=== PATIENT | male | born 1970 | race Caucasian/White ===

== ENCOUNTER → 2016-09-04 | Outpatient (CLI) | payer BC ==
[~2016-09-04] MED LIST: CEFP500T4 PO; CPR500T PO; CYCL10TA9 PO; HYDR-3583 PO; HYDR1TAB PO; NAPR-243 PO; OXYC-12 PO; PHEN200T27 PO; PRED20TA PO; TRIA16.5 NS
--- NOTE | 2016-09-04 14:18 | Diagnostic Imaging Report ---
EXAM: Right ribs at 8:51 a.m. INDICATION: Fell, hip pain. Three views were obtained. COMPARISON: There are no prior studies available for comparison. FINDINGS: There is no evidence for a displaced rib fracture. No other acute bony abnormality is noted. There is no sign of an injury to the underlying right lung. Specifically, there is no evidence for a pneumothorax. IMPRESSION: There is no evidence for an acute bony abnormality. Dictated by: Dictated on workstation # [id number]
== END ==
LOC: RAD 08:22
PROVIDERS: ATTEND Nurse Practitioner Family
DX: R07.81 Pleurodynia (principal)
CPT/HCPCS: 71100

== ENCOUNTER → 2017-04-09 | Outpatient (CLI) | payer BC ==
[~2017-04-09] VITALS: Ht 182.9 cm; Wt 95.3 kg
[~2017-04-09] MED LIST changes: +CATHETER FLUSH 10 ML SYR IV PRN
[2017-04-09 08:11] VITALS: BP 128/85
--- NOTE | 2017-04-09 13:18 | STRESS TEST ---
DATE OF SERVICE: 04/09/2017 [facility]EXISC[facility] MYOVIEW STRESS TEST REPORT SUMMARY: The patient was injected with 11 mCi of technetium-99 Myoview and the resting images were obtained with peak stress level, a 30.7 mCi of technetium-99 Myoview were injected and the stress images were obtained. The resting and stressed images were reviewed and compared in the short axis, horizontal long axis, and vertical long axis views. Review of the images showed mild decrease uptake at the basal to mid inferior wall with diaphragmatic attenuation with no significant ischemia or infarction. SSS is 2, SDS 2, TID value of 1.1. On the gated images, the left ventricle appeared to be normal size with normal contractility, calculated ejection fraction 66%. CONCLUSION: 1. Diaphragmatic attenuation with no significant ischemia or infarction. 2. Normal left ventricular size with normal contractility. Calculated ejection fraction 66%. Job ID: [id number] DocumentID: [id number] Dictated Date: 04/09/2017 10:45:06 [employer] Equipment Operator Date: 04/09/2017 12:25:30 Dictated By: ONIEL LOPEZ MD
== END ==
LOC: CARD 06:41
PROVIDERS: ATTEND Internal Medicine
DX: R07.9 Chest pain, unspecified (principal)
CPT/HCPCS: 78452; 93017

== ENCOUNTER 2018-03-22 09:46 | Day surgery (SDC) | payer BC ==
[2018-03-22] VITALS (8 sets, daily range): BP systolic 111–137; BP diastolic 75–103
[~2018-03-22] VITALS: Ht 182.9 cm; Wt 98.0 kg
[~2018-03-22 09:46] MED LIST changes: -CATHETER FLUSH 10 ML SYR IV PRN
--- OUTSIDE RECORDS SUMMARY | 2018-03-22 09:49 | XMS REPORT | CCD ---
Author Author Noemi Mercado Organization [facility] Address [address] [place] [address] Phone Care Team Providers Care Technical Writing Lead/Mgr Name Role Phone PP Unavailable CCM Unavailable Summary Purpose Interface Exchange Insurance Providers Payer name Policy type / Coverage type Covered green party ID Effective Begin Date Effective End Date Blue Cross Blue Shield [facility] Blue Cross/Blue Shield [id number] Unknown Unknown Family history Mother Diagnosis Age At Onset Alcoholism Unknown Father Diagnosis Age At Onset Arthritis Unknown Skin cancer Unknown Alcoholism Unknown Brother Diagnosis Age At Onset Alcoholism Unknown Sister Diagnosis Age At Onset Alcoholism Unknown Social History Social History Element Codes Description Effective Dates Marital status Unknown 11/01/2015 Employment Unknown Currently employed [employer] 11/01/[address]: 729448608 Never smoker 11/01/[address]: 224109396 Never drinks alcohol 11/01/2015 Allergies, Adverse Reactions, Alerts Substance Reaction Codes Entered Date Inactivated Date Status * NO KNOWN DRUG ALLERGIES Unknown 11/01/2015 No Inactive Date Active Past Medical History Illness Codes Condition Status Onset Date Resolved Date Encounter for general adult medical examination with abnormal findings ICD-9: V70.0 ICD-10: Z00.01 Active 03/11/2018 Unknown Generalized anxiety disorder ICD-9: 300.02 ICD-10: F41.1 Active 01/07/2017 Unknown Low back pain ICD-9: 724.2 ICD-10: M54.5 Active 11/11/2015 Unknown Other chest pain ICD-9 : 786.59 ICD-10: R07.89 Active 09/03/2016 Unknown Pleurodynia ICD-9: 786.50 ICD-10: R07.81 Active 09/03/2016 Unknown Other intervertebral disc displacement, 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 Active 11/11/2015 Unknown Localized enlarged lymph nodes ICD-9: 785.6 ICD-10: R59.0 Active 10/31/2015 Unknown Other insomnia ICD-9: 327.09 ICD-10: G47.09 Active 10/31/2015 Unknown Other muscle spasm ICD -9: 728.85 ICD-10: M62.838 Active 10/31/2015 Unknown Problems Condition Codes Effective Dates Condition Status Encounter for general adult medical examination with abnormal findings ICD-9: V70.0 ICD-10: Z00.01 03/11/2018 Active Generalized anxiety disorder ICD-9: 300.02 ICD-10: F41.1 01/07/2017 Active Low back pain ICD-9: 724.2 ICD-10: M54.5 11/11/2015 Active Other chest pain ICD-9 : 786.59 ICD-10: R07.89 09/03/2016 Active Pleurodynia ICD-9: 786.50 ICD-10: R07.81 09/03/2016 Active Other intervertebral disc displacement, 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 11/11/2015 Active Localized enlarged lymph nodes ICD-9: 785.6 ICD-10: R59.0 10/31/2015 Active Other insomnia ICD-9: 327.09 ICD-10: G47.09 10/31/2015 Active Other muscle spasm ICD -9: 728.85 ICD-10: M62.838 10/31/2015 Active Medications Medication Codes Instructions Start Date Stop Date Status Fill Instructions tramadol 50 mg tablet RxNorm: 260790 1-2 Tablet(s) PO Q6 PRN 01/2018 No Stop Date Active Lexapro 10 mg tablet RxNorm: 913446 1 Tablet(s) PO QPM 201603/10/2018 Inactive cyclobenzaprine 5 mg tablet RxNorm: 950724 1/2 - 1 Tablet(s) PO TID as needed muscle spasms 11/01/2015 11/05/2015 Inactive prednisone 20 mg tablet RxNorm: 301521 2 Tablet(s) PO daily 05/201511/05/2015 Inactive ibuprofen 800 mg tablet RxNorm: 134535 1 Tablet(s) PO as needed No Start Date Active oxycodone-acetaminophen 5 mg-325 mg tablet RxNorm: 9134866 Tablet(s) PO as needed No Start Date Active Cymbalta 20 mg capsule,delayed release RxNorm: 623587 1 Capsule(s) PO daily No Start Date 01/06/2017 Inactive oxycodone-acetaminophen 5 mg-325 mg tablet RxNorm: 2545461 Tablet(s) PO as needed No Start Date 11/01/2015 Inactive Medication Administered No Medication Administered data Immunizations No Immunization data Assessments Condition Codes Effective Dates Encounter for general adult medical examination with abnormal findings ICD-10: Z00.01 ICD-9: V70.0 03/11/2018 Generalized anxiety disorder ICD-10: F41.1 ICD-9: 300.02 01/07/2017 Low back pain ICD-10: M54.5 ICD-9: 724.2 01/07/2017 Pleurodynia ICD-10: R07.81 ICD-9: 786.50 09/03/2016 Other chest pain ICD-10: R07.89 ICD-9: 786.59 09/03/2016 Other intervertebral disc displacement, lumbar region ICD-10 : M51.26 ICD-9: 722.10 11/12/2015 Localized enlarged lymph nodes ICD-10: R59.0 ICD-9: 785.6 11/01/2015 Other muscle spasm ICD-10: M62.838 ICD-9: 728.85 11/01/2015 Other insomnia ICD-10: G47.09 ICD-9: 327.09 11/01/2015 Reason For Visit Reason For Visit Effective Dates Notes well man exam (40-65 years) 03/11/2018 insomnia 01/07/2017 bone fracture 09/03/2016 sore throat 11/12/2015 sore throat 11/01/2015 Results Observation Observation Code Item Item Code Result Date Lipid Ord30 CHOL 186 mg/dL 04/01/2016 Lipid Ord30 HDL 48.0 mg/dl 04/01/2016 Lipid Ord30 TRIG 93 mg/dL 04/01/2016 Lipid Ord30 LDL 119 mg/dL 04/01/2016 Lipid Ord30 C/HDL 3.9 Ratio 04/01/2016 Cbc With Differential Ord2 WBC 6.87 K/ul 04/01/2016 Cbc With Differential Ord2 RBC 5.47 M/ul 04/01/2016 Cbc With Differential Ord2 HGB 16.0 g/dl 04/01/2016 Cbc With Differential Ord2 Neut% 48.9 % 04/01/2016 Cbc With Differential Ord2 HCT 47.3 % 04/01/2016 Cbc With Differential Ord2 MCV 86.5 fl 04/01/2016 Cbc With Differential Ord2 Lymph% 37.6 % 04/01/2016 Cbc With Differential Ord2 MCH 29.3 pg 04/01/2016 Cbc With Differential Ord2 Hardeman% 10.3 % 04/01/2016 Cbc With Differential Ord2 MCHC 33.8 pg 04/01/2016 Cbc With Differential Ord2 Eos% 2.8 % 04/01/2016 Cbc With Differential Ord2 PLT 252 K/ul 04/01/2016 Cbc With Differential Ord2 Baso% 0.4 % 04/01/2016 Cbc With Differential Ord2 RDW 12.8 % 04/01/2016 Cbc With Differential Ord2 Neut ABS# 3.36 K/ul 04/01/2016 Cbc With Differential Ord2 Lymph ABS# 2.58 K/ul 04/01/2016 Cbc With Differential Ord2 Hardeman ABS# 0.7 K/ul 04/01/2016 Cbc With Differential Ord2 Eos ABS# 0.2 K/ul 04/01/2016 Cbc With Differential Ord2 Baso ABS# 0.0 K/ul 04/01/2016 Tsh Ord6 hTSH II 2.06 uIU/mL 04/01/2016 Comp Metabolic Bmm356 NA 140 mEq/L 04/01/2016 Comp Metabolic Xlc217 K 4.7 mEq/L 04/01/2016 Comp Metabolic Zxd359 CL 105 mEq/L 04/01/2016 Comp Metabolic Fry038 CO2 29.0 mEq/L 04/01/2016 Comp Metabolic Uux521 ANION GAP 11 04/01/2016 Comp Metabolic Hsf376 GLUCOSE 99 mg/dL 04/01/2016 Comp Metabolic Emg022 Creat 1.1 mg/dL 04/01/2016 Comp Metabolic Ixl558 eGFR 76 ml/min/1.73m2 04/01/2016 Comp Metabolic Gka000 BUN 17 mg/dL 04/01/2016 Comp Metabolic Kpu385 B/C Ratio 15.3 Ratio 04/01/2016 Comp Metabolic Vjs744 CALCIUM 9.5 mg/dL 04/01/2016 Comp Metabolic Knm807 ALK PHOS 73 U/L 04/01/2016 Comp Metabolic Swb545 AST(SGOT) 35 U/L 04/01/2016 Comp Metabolic Gjn298 ALT(SGPT) 74 U/L 04/01/2016 Comp Metabolic Vsa955 BILI T 0.6 mg/dL 04/01/2016 Comp Metabolic Nsu171 ALBUMIN 4.3 g/dL 04/01/2016 Comp Metabolic Hlt042 TPRO 6.5 g/dL 04/01/2016 Comp Metabolic Xuw632 GLOB 2.2 g/dL 04/01/2016 Comp Metabolic Akz663 A/G Ratio 1.9 Ratio 04/01/2016 Comp Metabolic Gmo222 Osmo 281 mOsmo 04/01/2016 Review of Systems System Result Effective Dates Constitutional No recent illness 2017 Constitutional No anorexia 03/11/2018 Constitutional No night sweats 2017 Constitutional No chills 03/11/2018 Constitutional No diaphoresis 03/11/2018 Constitutional No fatigue 03/11/2018 Constitutional No fever 03/11/2018 Eyes No blindness 03/11/2018 Ears/Nose/Throat/Neck No nasal allergies 03/11/2018 Ears/Nose/Throat/Neck No nasal discharge 03/11/2018 Cardiovascular chest pain/pressure 2017 Respiratory No chest congestion 2017 Respiratory No dyspnea 03/11/2018 Gastrointestinal No abdominal pain 2017 Gastrointestinal No constipation 2017 Gastrointestinal No diarrhea 03/11/2018 Genitourinary/Nephrology No dysuria 03/11 Musculoskeletal back pain 03/11/2018 Dermatologic No rash 03/11/2018 Neurologic No alteration of consciousness 03/11/2018 Neurologic No mental status change 2017 Constitutional No insomnia 03/11/2018 Constitutional No malaise 03/11/2018 Constitutional No weight loss 03/11/2018 Constitutional No weight gain 03/11/2018 Musculoskeletal shoulder pain 03/11/2018 Psychiatric No drug abuse 03/11/2018 Cardiovascular dyspnea 03/11/2018 Constitutional No recent illness 2016 Constitutional No fever 01/07/2017 Eyes No blindness 01/07/2017 Ears/Nose/Throat/Neck No nasal allergies 01/07/2017 Ears/Nose/Throat/Neck No nasal discharge 01/07/2017 Cardiovascular No chest pain/pressure 10/2016 Respiratory No chest congestion 2016 Respiratory No dyspnea 01/07/2017 Dermatologic No rash 01/07/2017 Neurologic No alteration of consciousness 01/07/2017 Neurologic No mental status change 2016 Musculoskeletal back pain 01/07/2017 Genitourinary/Nephrology No dysuria 01/07 Gastrointestinal No abdominal pain 2016 Gastrointestinal No constipation 2016 Gastrointestinal No diarrhea 01/07/2017 Constitutional No anorexia 01/07/2017 Constitutional No night sweats 2016 Constitutional No chills 01/07/2017 Constitutional No diaphoresis 01/07/2017 Constitutional No fatigue 01/07/2017 Psychiatric anxiety 01/07/2017 Psychiatric depression 01/07/2017 Constitutional No recent illness 2016 Constitutional No fever 09/03/2016 Eyes No eye erythema 09/03/2016 Ears/Nose/Throat/Neck No nasal allergies 09/03/2016 Ears/Nose/Throat/Neck No nasal discharge 09/03/2016 Cardiovascular No chest pain/pressure 08/2016 Respiratory No dyspnea 09/03/2016 Respiratory No chest congestion 2016 Musculoskeletal joint complaint 2016 Dermatologic No rash 09/03/2016 Neurologic No alteration of consciousness 09/03/2016 Neurologic No mental status change 2016 Constitutional No recent illness 2015 Constitutional No chills 11/12/2015 Constitutional No diaphoresis 11/12/2015 Constitutional fatigue 11/12/2015 Constitutional No fever 11/12/2015 Eyes No blindness 11/12/2015 Ears/Nose/Throat/Neck nasal allergies 04/2016 Ears/Nose/Throat/Neck nasal discharge 04/2016 Ears/Nose/Throat/Neck No otalgia 2015 Ears/Nose/Throat/Neck postnasal drip 04/2016 Ears/Nose/Throat/Neck No sinus congestion 11/12/2015 Ears/Nose/Throat/Neck No sore throat 04/2016 Cardiovascular No chest pain/pressure 04/2016 Cardiovascular No dyspnea 11/12/2015 Respiratory No chest congestion 2015 Respiratory No cough 11/12/2015 Respiratory No dyspnea 11/12/2015 Gastrointestinal No abdominal pain 2015 Gastrointestinal No constipation 2015 Gastrointestinal No diarrhea 11/12/2015 Gastrointestinal No nausea 11/12/2015 Gastrointestinal No vomiting 11/12/2015 Musculoskeletal back pain 11/12/2015 Dermatologic No rash 11/12/2015 Neurologic No alteration of consciousness 11/12/2015 Neurologic No mental status change 2015 Constitutional No insomnia 11/12/2015 Constitutional No recent illness 2015 Constitutional No chills 11/01/2015 Constitutional No diaphoresis 11/01/2015 Constitutional fatigue 11/01/2015 Constitutional No fever 11/01/2015 Constitutional insomnia 11/01/2015 Eyes No eye erythema 11/01/2015 Ears/Nose/Throat/Neck nasal allergies 05/2015 Ears/Nose/Throat/Neck nasal discharge 05/2015 Ears/Nose/Throat/Neck postnasal drip 05/2015 Ears/Nose/Throat/Neck No sinus congestion 11/01/2015 Ears/Nose/Throat/Neck No sore throat 05/2015 Ears/Nose/Throat/Neck No otalgia 2015 Cardiovascular No chest pain/pressure 05/2015 Cardiovascular No dyspnea 11/01/2015 Respiratory No chest congestion 2015 Respiratory No cough 11/01/2015 Respiratory No dyspnea 11/01/2015 Gastrointestinal No abdominal pain 2015 Gastrointestinal No constipation 2015 Gastrointestinal No diarrhea 11/01/2015 Gastrointestinal No vomiting 11/01/2015 Gastrointestinal No nausea 11/01/2015 Musculoskeletal back pain 11/01/2015 Dermatologic No rash 11/01/2015 Neurologic No alteration of consciousness 11/01/2015 Neurologic No mental status change 2015 Physical Exam Exam Name System Name Item Name Status Result Effective Dates Notes Full Exam - General 1994 Constitutional general appearance Overall: well developed 03/11/2018 None Full Exam - General 1994 Constitutional general appearance Overall: in no acute distress 03/11/2018 None Full Exam - General 1994 Constitutional general appearance Overall: well nourished 03/11/2018 None Full Exam - General 1994 Eyes conjunctiva /eyelids Overall: conjunctiva clear 03/11/2018 None Full Exam - General 1994 Eyes conjunctiva /eyelids Overall: cornea clear 03/11/2018 None Full Exam - General 1994 Eyes conjunctiva /eyelids Overall: eyelids normal 03/11/2018 None Full Exam - General 1994 Ears/Nose/Throat otoscopic exam Overall: tympanic membranes clear 03/11/2018 None Full Exam - General 1994 Ears/Nose/Throat lips/teeth/gingiva Overall: benign lips 03/11/2018 None Full Exam - General 1994 Ears/Nose/Throat lips/teeth/gingiva Overall: normal dentition 03/11/2018 None Full Exam - General 1995 Ears/Nose/Throat oral cavity/pharynx/larynx Overall: oral mucosa clear 03/11/2018 None Full Exam - General 1995 Ears/Nose/Throat oral cavity/pharynx/larynx Overall: oropharyngeal mucosa clear 03/11/2018 None Full Exam - General 1994 Ears/Nose/Throat oral cavity/pharynx/larynx Overall: no masses 03/11/2018 None Full Exam - General 1994 Respiratory auscultation Overall: breath sounds clear bilaterally 03/11/2018 None Full Exam - General 1994 Respiratory respiratory effort/rhythm Overall: no retractions 03/11/2018 None Full Exam - General 1994 Respiratory respiratory effort/rhythm Overall: normal rate 03/11/2018 None Full Exam - General 1994 Cardiovascular extremities Overall: no clubbing 03/11/2018 None Full Exam - General 1994 Cardiovascular auscultation of heart Overall: regular rate 03/11/2018 None Full Exam - General 1994 Cardiovascular auscultation of heart Overall: normal heart sounds 03/11/2018 None Full Exam - General 1994 Abdomen abdominal exam Overall: no tenderness 03/11/2018 None Full Exam - General 1994 Abdomen abdominal exam Overall: normal bowel sounds 03/11/2018 None Full Exam - General 1994 Musculoskeletal head and neck Overall: head atraumatic 03/11/2018 None Full Exam - General 1994 Integument inspection of skin Overall: no rash, lesions 03/11/2018 None Full Exam - General 1994 Neurologic cranial nerves Overall: crainial nerves 2 - 12 grossly intact 03/11/2018 None Full Exam - General 1994 Psychiatric orientation/consciousness Overall: oriented to person, place and time 03/11/2018 None Full Exam - General 1994 Psychiatric mood and affect Overall: normal mood and affect 03/11/2018 None Full Exam - General 1994 Psychiatric appearance Overall: well-groomed, good eye contact 03/11/2018 None Full Exam - General 1994 Ears/Nose/Throat otoscopic exam Overall: external auditory canals clear 03/11/2018 None Full Exam - General 1994 Musculoskeletal spine, ribs and pelvis Overall: spine benign 03/11/2018 None Full Exam - General 1994 Constitutional general appearance Overall: well developed 01/07/2017 None Full Exam - General 1994 Constitutional general appearance Overall: in no acute distress 01/07/2017 None Full Exam - General 1994 Constitutional general appearance Overall: well nourished 01/07/2017 None Full Exam - General 1994 Eyes conjunctiva /eyelids Overall: conjunctiva clear 01/07/2017 None Full Exam - General 1994 Eyes conjunctiva /eyelids Overall: cornea clear 01/07/2017 None Full Exam - General 1994 Eyes conjunctiva /eyelids Overall: eyelids normal 01/07/2017 None Full Exam - General 1994 Ears/Nose/Throat otoscopic exam Overall: tympanic membranes clear 01/07/2017 None Full Exam - General 1994 Ears/Nose/Throat lips/teeth/gingiva Overall: benign lips 01/07/2017 None Full Exam - General 1994 Ears/Nose/Throat lips/teeth/gingiva Overall: normal dentition 01/07/2017 None Full Exam - General 1994 Ears/Nose/Throat oral cavity/pharynx/larynx Overall: oral mucosa clear 01/07/2017 None Full Exam - General 1994 Ears/Nose/Throat oral cavity/pharynx/larynx Overall: oropharyngeal mucosa clear 01/07/2017 None Full Exam - General 1994 Ears/Nose/Throat oral cavity/pharynx/larynx Overall: no masses 01/07/2017 None Full Exam - General 1994 Respiratory auscultation Overall: breath sounds clear bilaterally 01/07/2017 None Full Exam - General 1994 Respiratory respiratory effort/rhythm Overall: no retractions 01/07/2017 None Full Exam - General 1994 Respiratory respiratory effort/rhythm Overall: normal rate 01/07/2017 None Full Exam - General 1994 Cardiovascular extremities Overall: no clubbing 01/07/2017 None Full Exam - General 1994 Cardiovascular auscultation of heart Overall: regular rate 01/07/2017 None Full Exam - General 1994 Cardiovascular auscultation of heart Overall: normal heart sounds 01/07/2017 None Full Exam - General 1994 Abdomen abdominal exam Overall: no tenderness 01/07/2017 None Full Exam - General 1994 Abdomen abdominal exam Overall: normal bowel sounds 01/07/2017 None Full Exam - General 1994 Musculoskeletal spine, ribs and pelvis Spine: tender @ thoracic spine 01/07/2017 None Full Exam - General 1994 Musculoskeletal spine, ribs and pelvis Spine: tender @ lumbar spine 01/07/2017 None Full Exam - General 1994 Musculoskeletal head and neck Overall: head atraumatic 01/07/2017 None Full Exam - General 1994 Integument inspection of skin Overall: no rash, lesions 01/07/2017 None Full Exam - General 1994 Neurologic cranial nerves Overall: crainial nerves 2 - 12 grossly intact 01/07/2017 None Full Exam - General 1994 Psychiatric orientation/consciousness Overall: oriented to person, place and time 01/07/2017 None Full Exam - General 1994 Psychiatric mood and affect Overall: normal mood and affect 01/07/2017 None Full Exam - General 1994 Psychiatric appearance Overall: well-groomed, good eye contact 01/07/2017 None Full Exam - General 1994 Ears/Nose/Throat otoscopic exam External auditory canal: complete cerumen impaction 01/07/2017 None Full Exam - General 1994 Ears/Nose/Throat otoscopic exam Tympanic membrane: not visualized 01/07/2017 None Full Exam - Orthopedics Constitutional general appearance Overall: well nourished 09/03/2016 None Full Exam - Orthopedics Constitutional general appearance Overall: well developed 09/03/2016 None Full Exam - Orthopedics Constitutional general appearance Overall: in no acute distress 09/03/2016 None Full Exam - Orthopedics Eyes conjunctiva/ eyelids Overall: conjunctiva clear 09/03/2016 None Full Exam - Orthopedics Eyes conjunctiva/ eyelids Overall: eyelids normal 09/03/2016 None Full Exam - Orthopedics Ears/Nose/Throat lips/teeth/gingiva Overall: benign lips 09/03/2016 None Full Exam - Orthopedics Ears/Nose/Throat oral cavity/pharynx/larynx Overall: oral mucosa clear 09/03/2016 None Full Exam - Orthopedics Respiratory respiratory effort/rhythm Overall: no retractions 09/03/2016 None Full Exam - Orthopedics Respiratory respiratory effort/rhythm Overall: normal rate 09/03/2016 None Full Exam - Orthopedics Respiratory auscultation Overall: breath sounds clear bilaterally 09/03/2016 None Full Exam - Orthopedics MS: spine/rib/pelvis insp & palp - S/R/P Ribs/trunk inspection: normal ribs and sternum 09/03/2016 tender to palpation Full Exam - Orthopedics Psychiatric orientation/consciousness Overall: oriented to person, place and time 09/03/2016 None Full Exam - Orthopedics Psychiatric mood and affect Overall: normal mood and affect 09/03/2016 None Full Exam - Orthopedics Psychiatric appearance Overall: well-groomed, good eye contact 09/03/2016 None Full Exam - General 1994 Constitutional general appearance Overall: well developed 11/12/2015 None Full Exam - General 1994 Constitutional general appearance Overall: in no acute distress 11/12/2015 None Full Exam - General 1994 Constitutional general appearance Overall: well nourished 11/12/2015 None Full Exam - General 1994 Eyes conjunctiva /eyelids Overall: conjunctiva clear 11/12/2015 None Full Exam - General 1994 Eyes conjunctiva /eyelids Overall: cornea clear 11/12/2015 None Full Exam - General 1994 Eyes conjunctiva /eyelids Overall: eyelids normal 11/12/2015 None Full Exam - General 1994 Ears/Nose/Throat otoscopic exam Overall: external auditory canals clear 11/12/2015 None Full Exam - General 1994 Ears/Nose/Throat otoscopic exam Overall: tympanic membranes clear 11/12/2015 None Full Exam - General 1994 Ears/Nose/Throat lips/teeth/gingiva Overall: benign lips 11/12/2015 None Full Exam - General 1994 Ears/Nose/Throat lips/teeth/gingiva Overall: normal dentition 11/12/2015 None Full Exam - General 1994 Ears/Nose/Throat oral cavity/pharynx/larynx Overall: oral mucosa clear 11/12/2015 None Full Exam - General 1994 Ears/Nose/Throat oral cavity/pharynx/larynx Overall: oropharyngeal mucosa clear 11/12/2015 None Full Exam - General 1994 Ears/Nose/Throat oral cavity/pharynx/larynx Overall: no masses 11/12/2015 None Full Exam - General 1994 Ears/Nose/Throat oral cavity/pharynx/larynx Posterior Pharynx: clear post nasal drainage 11/12/2015 None Full Exam - General 1994 Respiratory auscultation Overall: breath sounds clear bilaterally 11/12/2015 None Full Exam - General 1994 Respiratory respiratory effort/rhythm Overall: no retractions 11/12/2015 None Full Exam - General 1994 Respiratory respiratory effort/rhythm Overall: normal rate 11/12/2015 None Full Exam - General 1994 Cardiovascular extremities Overall: no clubbing 11/12/2015 None Full Exam - General 1994 Cardiovascular auscultation of heart Overall: regular rate 11/12/2015 None Full Exam - General 1994 Cardiovascular auscultation of heart Overall: normal heart sounds 11/12/2015 None Full Exam - General 1994 Abdomen abdominal exam Overall: no tenderness 11/12/2015 None Full Exam - General 1994 Abdomen abdominal exam Overall: normal bowel sounds 11/12/2015 None Full Exam - General 1994 Lymphatic neck nodes Overall: anterior cervical chain benign 11/12/2015 None Full Exam - General 1994 Lymphatic neck nodes Overall: posterior cervical chain benign 11/12/2015 None Full Exam - General 1994 Lymphatic neck nodes Anterior cervical chain: Right size (cm): less than 1 CM 11/12/2015 None Full Exam - General 1994 Lymphatic neck nodes Anterior cervical chain: soft 11/12/2015 None Full Exam - General 1994 Lymphatic neck nodes Anterior cervical chain: tender 11/12/2015 None Full Exam - General 1994 Musculoskeletal spine, ribs and pelvis Spine: tender @ thoracic spine 11/12/2015 None Full Exam - General 1994 Musculoskeletal spine, ribs and pelvis Spine: tender @ lumbar spine 11/12/2015 None Full Exam - General 1994 Musculoskeletal head and neck Overall: head atraumatic 11/12/2015 None Full Exam - General 1994 Integument inspection of skin Overall: no rash, lesions 11/12/2015 None Full Exam - General 1994 Neurologic cranial nerves Overall: crainial nerves 2 - 12 grossly intact 11/12/2015 None Full Exam - General 1994 Psychiatric orientation/consciousness Overall: oriented to person, place and time 11/12/2015 None Full Exam - General 1994 Psychiatric mood and affect Overall: normal mood and affect 11/12/2015 None Full Exam - General 1994 Psychiatric appearance Overall: well-groomed, good eye contact 11/12/2015 None Full Exam - General 1994 Constitutional general appearance Overall: well developed 11/01/2015 None Full Exam - General 1994 Constitutional general appearance Overall: in no acute distress 11/01/2015 None Full Exam - General 1994 Constitutional general appearance Overall: well nourished 11/01/2015 None Full Exam - General 1994 Eyes conjunctiva /eyelids Overall: conjunctiva clear 11/01/2015 None Full Exam - General 1994 Eyes conjunctiva /eyelids Overall: cornea clear 11/01/2015 None Full Exam - General 1994 Eyes conjunctiva /eyelids Overall: eyelids normal 11/01/2015 None Full Exam - General 1994 Ears/Nose/Throat otoscopic exam Overall: external auditory canals clear 11/01/2015 None Full Exam - General 1994 Ears/Nose/Throat otoscopic exam Overall: tympanic membranes clear 11/01/2015 None Full Exam - General 1994 Ears/Nose/Throat lips/teeth/gingiva Overall: benign lips 11/01/2015 None Full Exam - General 1994 Ears/Nose/Throat lips/teeth/gingiva Overall: normal dentition 11/01/2015 None Full Exam - General 1994 Ears/Nose/Throat oral cavity/pharynx/larynx Overall: oral mucosa clear 11/01/2015 None Full Exam - General 1994 Ears/Nose/Throat oral cavity/pharynx/larynx Overall: oropharyngeal mucosa clear 11/01/2015 None Full Exam - General 1994 Ears/Nose/Throat oral cavity/pharynx/larynx Overall: no masses 11/01/2015 None Full Exam - General 1994 Ears/Nose/Throat oral cavity/pharynx/larynx Posterior Pharynx: clear post nasal drainage 11/01/2015 None Full Exam - General 1994 Respiratory auscultation Overall: breath sounds clear bilaterally 11/01/2015 None Full Exam - General 1994 Respiratory respiratory effort/rhythm Overall: no retractions 11/01/2015 None Full Exam - General 1994 Respiratory respiratory effort/rhythm Overall: normal rate 11/01/2015 None Full Exam - General 1994 Cardiovascular auscultation of heart Overall: regular rate 11/01/2015 None Full Exam - General 1994 Cardiovascular auscultation of heart Overall: normal heart sounds 11/01/2015 None Full Exam - General 1994 Cardiovascular extremities Overall: no clubbing 11/01/2015 None Full Exam - General 1994 Abdomen abdominal exam Overall: no tenderness 11/01/2015 None Full Exam - General 1994 Abdomen abdominal exam Overall: normal bowel sounds 11/01/2015 None Full Exam - General 1994 Lymphatic neck nodes Overall: anterior cervical chain benign 11/01/2015 None Full Exam - General 1994 Lymphatic neck nodes Overall: posterior cervical chain benign 11/01/2015 None Full Exam - General 1994 Lymphatic neck nodes Anterior cervical chain: soft 11/01/2015 None Full Exam - General 1994 Lymphatic neck nodes Anterior cervical chain: tender 11/01/2015 None Full Exam - General 1994 Lymphatic neck nodes Anterior cervical chain: Right size (cm): less than 1 CM 11/01/2015 None Full Exam - General 1994 Musculoskeletal head and neck Overall: head atraumatic 11/01/2015 None Full Exam - General 1994 Musculoskeletal spine, ribs and pelvis Spine: tender @ lumbar spine 11/01/2015 None Full Exam - General 1994 Musculoskeletal spine, ribs and pelvis Spine: tender @ thoracic spine 11/01/2015 None Full Exam - General 1994 Integument inspection of skin Overall: no rash, lesions 11/01/2015 None Full Exam - General 1994 Neurologic cranial nerves Overall: crainial nerves 2 - 12 grossly intact 11/01/2015 None Full Exam - General 1994 Psychiatric orientation/consciousness Overall: oriented to person, place and time 11/01/2015 None Full Exam - General 1994 Psychiatric mood and affect Overall: normal mood and affect 11/01/2015 None Full Exam - General 1994 Psychiatric appearance Overall: well-groomed, good eye contact 11/01/2015 None Procedures No Procedures data Vital Signs Date Vital 03/11/2018 Blood Pressure 1: 138/90 Code : 8480-6 BMI: 28.8 Code : 56825-1 Heart Rate 1 : 68 bpm Height: 6' SpO2: 92% Weight: 212 lbs 01/07/2017 Blood Pressure 1: 134/82 Code : 8480-6 BMI: 29.3 Code : 84378-5 Heart Rate 1 : 78 bpm Height: 6' SpO2: 98% Weight: 216 lbs 09/03/2016 Blood Pressure 1: 145/88 Code : 8480-6 BMI: 29.0 Code : 06269-0 Heart Rate 1 : 84 bpm Height: 6' SpO2: 97% Weight: 214 lbs 11/12/2015 Blood Pressure 1: 133/88 Code : 8480-6 BMI: 28.1 Code : 15985-7 Heart Rate 1 : 67 bpm Height: 6' SpO2: 97% Weight: 207 lbs 11/01/2015 Blood Pressure 1: 150/90 Code : 8480-6 Blood Pressure 1: 138/78 Code: 8480-6 BMI: 27.5 Code: 61681-8 Heart Rate 1: 73 bpm Height: 6' SpO2: 98% Weight: 203 lbs Functional Status No Functional Status data History of Present Illness Symptom Name Status Result Effective Date Notes back pain Location lumbar-sacral spine 03/11/2018 None back pain Quality constant 03/11/2018 None back pain Onset and Resolution ongoing 03/11/2018 None back pain Limitation on Activities does not limit activities 03/11/2018 None back pain Pertinent Findings extremity numbness 03/11/2018 None back pain Pertinent Findings Denies extremity weakness 03/11/2018 None back pain Pertinent Findings sleep disturbance 03/11/2018 None shoulder pain Location on the left shoulder 03/11/2018 None shoulder pain Quality constant 03/11/2018 None shoulder pain Onset and Resolution ongoing 03/11/2018 None shoulder pain Onset of Symptom _ years ago 03/11/2018 None shoulder pain Pertinent Findings Denies loss of range of motion 03/11/2018 None shoulder pain Pertinent Findings Denies loss of strength 03/11/2018 None insomnia Quality disrupted sleep 01/07/2017 None insomnia Onset of Symptom 6 months ago 01/07/2017 None back pain Location lumbar-sacral spine 01/07/2017 None back pain Quality aching 01/07/2017 None back pain Quality constant 01/07/2017 None back pain Quality pinching 01/07/2017 None back pain Onset and Resolution ongoing 01/07/2017 None back pain Radiating down both legs 01/07/2017 None bone fracture Location in the ribs on in the right 09/03/2016 None bone fracture Onset and Resolution sudden in onset 09/03/2016 None bone fracture Onset of Symptom 2 days ago 09/03/2016 None bone fracture Frequency of Episodes daily 09/03/2016 None bone fracture Limitation on Activities moderately limits activities 09/03/2016 None bone fracture Mechanism of injury moderate energy 09/03/2016 None bone fracture Triggers fall 09/03/2016 None bone fracture Pertinent Findings pain 09/03/2016 None bone fracture Pertinent Findings stiffness 09/03/2016 None bone fracture Triggers activity 09/03/2016 None sore throat Location on the right 11/12/2015 None sore throat Quality aching 11/12/2015 None sore throat Quality dull 11/12/2015 None sore throat Onset of Symptom 2 months ago 11/12/2015 None sore throat Limitation on Activities does not limit oral intake 11/12/2015 None sore throat Frequency of Episodes daily 11/12/2015 None sore throat Onset and Resolution resolved 11/12/2015 None back pain Location lumbar-sacral spine 11/12/2015 None back pain Quality constant 11/12/2015 None back pain Quality dull 11/12/2015 None back pain Quality aching 11/12/2015 None back pain Onset and Resolution sudden in onset 11/12/2015 None back pain Onset and Resolution ongoing 11/12/2015 None back pain Onset of Symptom 1 months ago 11/12/2015 None back pain Frequency of Episodes daily 11/12/2015 None sore throat Location on the right 11/01/2015 None sore throat Quality dull 11/01/2015 None sore throat Quality aching 11/01/2015 None sore throat Onset and Resolution gradual in onset 11/01/2015 None sore throat Onset of Symptom 2 months ago 11/01/2015 None sore throat Limitation on Activities does not limit oral intake 11/01/2015 None sore throat Frequency of Episodes daily 11/01/2015 None Advance Directives No Advance Directive data Encounters Encounter Performer Location Codes Date (53165) PREV VISIT EST AGE 40-64 Diagnosis: Encounter for general adult medical examination with abnormal findings[ICD10: Z00.01] [facility] CPT-4: 40711 03/11/2018 ([id number]) 74339 EST. PATIENT, LEVEL III Diagnosis: Low back pain[ICD10: M54.5] Diagnosis: Generalized anxiety disorder[ICD10: F41.1] [facility] CPT-4: 77117 01/07/2017 56616 EST. PATIENT, LEVEL III Diagnosis: Other chest pain[ICD10: R07.89] Diagnosis: Pleurodynia[ICD10: R07.81] [facility] CPT-4 : 33895 09/03/2016 ([id number]) 32404 EST. PATIENT, LEVEL III Diagnosis: Low back pain[ICD10: M54.5] Diagnosis: Other intervertebral disc displacement, lumbar region[ICD10: M51.26] [facility] CPT-4: 79687 11/12/2015 ([id number]) OFFICE VISIT, NEW - LEVEL 4 Diagnosis: Low back pain[ICD10: M54.5] Diagnosis: Other muscle spasm[ICD10: M62.838] Diagnosis: Localized enlarged lymph nodes[ICD10: R59.0] Diagnosis: Other insomnia[ICD10: G47.09] [facility] CPT-4 : 75440 11/01/2015 Plan of Care Planned Activity Notes Codes Status Date Visit Plan: Well Adult - pt was counseled about diet, exercise, and encouraged to follow a heart healthy diet and increase activity level. The patient was instructed to RTC yearly for well adult exams and PRN for acute illnesses. The pt was also instructed to have yearly labs for check of cholesterol, thyroid, chem panel, CBC, and renal functioning. Chest pain - shortness of breath -needs a stress test -refer to Dr Mendez for evaluation Low back pain -short course of tramadol for breakthrough pain -throw out old oxycodone Hyperlipidemia -recommend low fat diet -regular exercise 03/11/2018 Patient Education: Patient Medication Summary Completed 03/11/2018 Care Plan: Referral Order SNOMED-CT : 986080036 Pending 03/11/2018 Visit Plan: Chronic back pain-follow up with Ortho 4 states as already scheduled Anxiety - the patient has uncontrolled anxiety and will benefit from an SSRI on a daily basis to attempt control of the symptoms of anxiety (tachycardia, overwhelming sensations, stress, insomnia, etc). Pt is aware of the risks and benefits of treatment with the above medications. 01/07/2017 Appointment: Meagan Ritchie WPtel: [phone] [phone] [place] (30 min) Complex 01/07/2017 Patient Education: Patient Medication Summary Completed 01/07/2017 Visit Plan: Right rib pain - will give order for x-ray - The pt is to use prn antiinflammatories to manage acute pain. The patient is to call the office if the pain is worsening or does not improve. 09/03/2016 Appointment: Noemi Mercado WPtel: [phone] [facility] [place] (30 min) Complex 09/03/2016 Patient Education: Patient Medication Summary Completed 09/03/2016 Patient Education: Obesity Completed 09/03/2016 Visit Plan: Low back pain- the patient was instructed in appropriate posture, need for weight loss to alleviate abdominal obesity that is worsening the patient's back pain.. The pt is to use prn antiinflammatories to manage acute pain. The patient is to call the office if the pain is worsening or does not improve. TENS unit to back - referral to Dr. Lorenzo for injections take ibuprofen with food - three times daily x 7 days 11/12/2015 Appointment: [facility] WPtel: [facility] [place] (15 min) Moderate 11/12/2015 Patient Education: Patient Medication Summary Completed 11/12/2015 Patient Education: Obesity Completed 11/12/2015 Care Plan: Referral Order SNOMED-CT : 086078929 Pending 11/12/2015 Visit Plan: Insomnia - Pt has been advised to increase the light in the house during the day, and start dimming the lights during the evening hours. Pt has been advised to cut out caffeine after 5pm. Daytime napping worsens night time insomnia. Low back pain- the patient was instructed in appropriate posture, need for weight loss to alleviate abdominal obesity that is worsening the patient's back pain.. The pt is to use prn antiinflammatories to manage acute pain. The patient is to call the office if the pain is worsening or does not improve. Chronic Back pain - the patient was counseled to always first attempt to use modalities other than pain medication for alleviation of the muscle spasms and pain. The patient was also encouraged to continue with back exercises as previously directed. Pt is to use pain medication as directed. If pain medications are used inappropriately or early refills are requested, the patient understands that is a breech of trust/ contract and could result in the patient's termination from this medical practice. Enlarged lymph node - has been present for a few months - will check labs, order US. Pt is to notify clinic with any questions or concerns. 11/01/2015 Patient Education: Patient Medication Summary Completed 11/01/2015 Patient Education: Obesity Completed 11/01/2015 Referral: Dr. Michael Lorenzo WPtel: Referral Appointment Requested Referral: Dr. Michael Lorenzo WPtel: Info has been faxed. Attempted call to patient- no voicemail. Patient is going to call and reschedule. Completed Referral: Melita Mendez Referral Appointment Requested Instructions Comment . Right rib pain - will give order for x-ray - The pt is to use prn antiinflammatories to manage acute pain. The patient is to call the office if the pain is worsening or does not improve. Melatonin over the counter. Insomnia - Pt has been advised to increase the light in the house during the day, and start dimming the lights during the evening hours. Pt has been advised to cut out caffeine after 5pm. Daytime napping worsens night time insomnia. Low back pain- the patient was instructed in appropriate posture, need for weight loss to alleviate abdominal obesity that is worsening the patient's back pain.. The pt is to use prn antiinflammatories to manage acute pain. The patient is to call the office if the pain is worsening or does not improve. Chronic Back pain - the patient was counseled to always first attempt to use modalities other than pain medication for alleviation of the muscle spasms and pain. The patient was also encouraged to continue with back exercises as previously directed. Pt is to use pain medication as directed. If pain medications are used inappropriately or early refills are requested, the patient understands that is a breech of trust/contract and could result in the patient's termination from this medical practice. Enlarged lymph node - has been present for a few months - will check labs, order US. Pt is to notify clinic with any questions or concerns. . Well Adult - pt was counseled about diet, exercise, and encouraged to follow a heart healthy diet and increase activity level. The patient was instructed to RTC yearly for well adult exams and PRN for acute illnesses. The pt was also instructed to have yearly labs for check of cholesterol, thyroid, chem panel, CBC, and renal functioning. Chest pain -shortness of breath -needs a stress test -refer to Dr Mendez for evaluation Low back pain -short course of tramadol for breakthrough pain -throw out old oxycodone Hyperlipidemia -recommend low fat diet -regular exercise TENS unit to back - referral to Dr. Lorenzo for injections take ibuprofen with food - three times daily x 7 days . Low back pain- the patient was instructed in appropriate posture, need for weight loss to alleviate abdominal obesity that is worsening the patient's back pain.. The pt is to use prn antiinflammatories to manage acute pain. The patient is to call the office if the pain is worsening or does not improve. TENS unit to back - referral to Dr. Lorenzo for injections take ibuprofen with food - three times daily x 7 days LEXAPRO 10MG DAILY IN THE EVENING . Chronic back pain-follow up with Ortho 4 states as already scheduled Anxiety - the patient has uncontrolled anxiety and will benefit from an SSRI on a daily basis to attempt control of the symptoms of anxiety (tachycardia, overwhelming sensations, stress, insomnia, etc). Pt is aware of the risks and benefits of treatment with the above medications.
--- OUTSIDE RECORDS SUMMARY | 2018-03-22 09:50 | XMS REPORT | CCD ---
Author Author Noemi Mercado Organization [facility] Address [address] [place] [address] Phone Care Team Providers Care Vending Route Driver Name Role Phone PP Unavailable CCM Unavailable Summary Purpose Interface Exchange Insurance Providers Payer name Policy type / Coverage type Covered green party ID Effective Begin Date Effective End Date Blue Cross Blue Shield [facility] Blue Cross/Blue Shield [id number] Unknown Unknown Family history Mother Diagnosis Age At Onset Alcoholism Unknown Father Diagnosis Age At Onset Arthritis Unknown Skin cancer Unknown Alcoholism Unknown Brother Diagnosis Age At Onset Alcoholism Unknown Sister Diagnosis Age At Onset Alcoholism Unknown Social History Social History Element Codes Description Effective Dates Marital status Unknown 11/01/2015 Employment Unknown Currently employed [employer] 11/01/[address]: 313304949 Never smoker 11/01/[address]: 053351971 Never drinks alcohol 11/01/2015 Allergies, Adverse Reactions, [...] Fill Instructions tramadol 50 mg tablet RxNorm: 944787 1-2 Tablet(s) PO Q6 PRN 01/2018 No Stop Date Active Lexapro 10 mg tablet RxNorm: 278633 1 Tablet(s) PO QPM 201603/10/2018 Inactive cyclobenzaprine 5 mg tablet RxNorm: 074908 1/2 - 1 Tablet(s) PO TID as needed muscle spasms 11/01/2015 11/05/2015 Inactive prednisone 20 mg tablet RxNorm: 449313 2 Tablet(s) PO daily 05/201511/05/2015 Inactive ibuprofen 800 mg tablet RxNorm: 288779 1 Tablet(s) PO as needed No Start Date Active oxycodone-acetaminophen 5 mg-325 mg tablet RxNorm: 6909303 Tablet(s) PO as needed No Start Date Active Cymbalta 20 mg capsule,delayed release RxNorm: 540572 1 Capsule(s) PO daily No Start Date 01/06/2017 Inactive oxycodone-acetaminophen 5 mg-325 mg tablet RxNorm: 2191557 Tablet(s) PO as needed No Start Date [...] 29.3 pg 04/01/2016 Cbc With Differential Ord2 [place]% 10.3 % 04/01/2016 Cbc With Differential Ord2 [...] 2.58 K/ul 04/01/2016 Cbc With Differential Ord2 [place] ABS# 0.7 K/ul 04/01/2016 Cbc With Differential Ord2 Eos ABS# 0.2 K/ul 04/01/2016 Cbc With Differential Ord2 Baso ABS# 0.0 K/ul 04/01/2016 Tsh Ord6 hTSH II 2.06 uIU/mL 04/01/2016 Comp Metabolic Yxz620 NA 140 mEq/L 04/01/2016 Comp Metabolic Yjg450 K 4.7 mEq/L 04/01/2016 Comp Metabolic Chn879 CL 105 mEq/L 04/01/2016 Comp Metabolic Dlj129 CO2 29.0 mEq/L 04/01/2016 Comp Metabolic Stt773 ANION GAP 11 04/01/2016 Comp Metabolic Oeo416 GLUCOSE 99 mg/dL 04/01/2016 Comp Metabolic Gpy703 Creat 1.1 mg/dL 04/01/2016 Comp Metabolic Wqg728 eGFR 76 ml/min/1.73m2 04/01/2016 Comp Metabolic Nle389 BUN 17 mg/dL 04/01/2016 Comp Metabolic Iig328 B/C Ratio 15.3 Ratio 04/01/2016 Comp Metabolic Bce813 CALCIUM 9.5 mg/dL 04/01/2016 Comp Metabolic Fqj640 ALK PHOS 73 U/L 04/01/2016 Comp Metabolic Vaz636 AST(SGOT) 35 U/L 04/01/2016 Comp Metabolic Zro613 ALT(SGPT) 74 U/L 04/01/2016 Comp Metabolic Iak163 BILI T 0.6 mg/dL 04/01/2016 Comp Metabolic Alj698 ALBUMIN 4.3 g/dL 04/01/2016 Comp Metabolic Qje831 TPRO 6.5 g/dL 04/01/2016 Comp Metabolic Scx286 GLOB 2.2 g/dL 04/01/2016 Comp Metabolic Boq754 A/G Ratio 1.9 Ratio 04/01/2016 Comp Metabolic Zkl861 Osmo 281 mOsmo 04/01/2016 Review of Systems [...] Code : 8480-6 BMI: 28.8 Code : 94951-2 Heart Rate 1 : 68 bpm Height: 6' SpO2: 92% Weight: 212 lbs 01/07/2017 Blood Pressure 1: 134/82 Code : 8480-6 BMI: 29.3 Code : 67669-0 Heart Rate 1 : 78 bpm Height: 6' SpO2: 98% Weight: 216 lbs 09/03/2016 Blood Pressure 1: 145/88 Code : 8480-6 BMI: 29.0 Code : 69444-0 Heart Rate 1 : 84 bpm Height: 6' SpO2: 97% Weight: 214 lbs 11/12/2015 Blood Pressure 1: 133/88 Code : 8480-6 BMI: 28.1 Code : 52434-1 Heart Rate 1 : 67 bpm Height: 6' SpO2: 97% Weight: 207 lbs 11/01/2015 Blood Pressure 1: 150/90 Code : 8480-6 Blood Pressure 1: 138/78 Code: 8480-6 BMI: 27.5 Code: 40147-0 Heart Rate 1: 73 bpm Height: 6' [...] data Encounters Encounter Performer Location Codes Date (16014) PREV VISIT EST AGE 40-64 Diagnosis: Encounter for general adult medical examination with abnormal findings[ICD10: Z00.01] [facility] CPT-4: 78981 03/11/2018 ([id number]) 07828 EST. PATIENT, LEVEL III Diagnosis: Low back pain[ICD10: M54.5] Diagnosis: Generalized anxiety disorder[ICD10: F41.1] [facility] CPT-4: 48969 01/07/2017 73384 EST. PATIENT, LEVEL III Diagnosis: Other chest pain[ICD10: R07.89] Diagnosis: Pleurodynia[ICD10: R07.81] [facility] CPT-4 : 06919 09/03/2016 ([id number]) 23791 EST. PATIENT, LEVEL III Diagnosis: Low back pain[ICD10: M54.5] Diagnosis: Other intervertebral disc displacement, lumbar region[ICD10: M51.26] [facility] CPT-4: 34948 11/12/2015 ([id number]) OFFICE VISIT, NEW - LEVEL 4 Diagnosis: Low back pain[ICD10: M54.5] Diagnosis: Other muscle spasm[ICD10: M62.838] Diagnosis: Localized enlarged lymph nodes[ICD10: R59.0] Diagnosis: Other insomnia[ICD10: G47.09] [facility] CPT-4 : 22822 11/01/2015 Plan of Care Planned Activity Notes [...] 03/11/2018 Care Plan: Referral Order SNOMED-CT : 241660310 Pending 03/11/2018 Visit Plan: Chronic back pain-follow [...] above medications. 01/07/2017 Appointment: Meagan Ritchie WPtel: [phone] [phone] [place] (30 min) Complex 01/07/2017 Patient Education: Patient Medication Summary Completed 01/07/2017 Visit Plan: Right rib pain - will give order for x-ray - The pt is to use prn antiinflammatories to manage acute pain. The patient is to call the office if the pain is worsening or does not improve. 09/03/2016 Appointment: Noemi Mercado WPtel: [phone] [facility] [place] (30 min) Complex 09/03/2016 [...] 7 days 11/12/2015 Appointment: Irma Goldman WPtel: [facility] [place] (15 min) Moderate 11/12/2015 Patient Education: Patient Medication Summary Completed 11/12/2015 Patient Education: Obesity Completed 11/12/2015 Care Plan: Referral Order SNOMED-CT : 677973689 Pending 11/12/2015 Visit Plan: Insomnia - Pt [...]
--- OUTSIDE RECORDS SUMMARY | 2018-03-22 09:50 | XMS REPORT | Continuity of Care Document ---
Author Author [facility] Organization [facility] Address Unknown Phone Unavailable Allergies Active Description Code Type Severity Reaction Onset Reported/Identified Relationship to Patient Clinical Status Yes NKANo Known Allergies NKA Miscellaneous Allergy Unknown N/A 06/24/2005 Medications There is no data. 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 02/12/2012 Ot 550.91 RECUR UNILAT INGUIN DAVID 02/12/2012 Ot V04.81 ND FOR PROPHYLACTIC VACCIN AND INOCULATI 04/29/2012 Ot 465.9 ACUTE URI NOS 04/29/2012 Ot 786.50 CHEST PAIN NOS 04/29/2012 Ot 786.52 PAINFUL RESPIRATION 03/14/2013 HENRRY DUCKWORTH MD Ot 592.1 CALCULUS OF URETER 03/14/2013 HENRRY DUCKWORTH MD Ot 724.2 LUMBAGO 03/21/2013 TRISHA SHIRLEY MD Ot 592.1 CALCULUS OF URETER 05/02/2014 ANDREW LOZADA MD Ot 723.4 06/01/2014 Ot 214.9 06/01/2014 Ot 550.90 06/01/2014 Ot V72.63 06/01/2014 Ot V74.8 06/01/2014 Ot 789.04 06/01/2014 TRISHA SHIRLEY MD Ot 592.9 06/01/2014 ANDREW LOZADA MD Ot 723.4 06/01/2014 ANDREW LOZADA MD Ot 723.4 10/20/2014 LEENA SEYMOUR MD Ot 724.2 LUMBAGO 10/20/2014 LEENA SEYMOUR MD Ot 724.4 LUMBOSACRAL NEURITIS NOS 11/16/2014 Ot 214.9 11/16/2014 Ot 550.90 11/16/2014 Ot V72.63 11/16/2014 Ot V74.8 11/16/2014 Ot 789.04 11/16/2014 FERN RIVERA, TRISHA Rodas Ot 592.9 11/16/2014 NEVILLE RIVERA, ANDREW Hodge Ot 723.4 11/16/2014 NEVILLE RIVERA, ANDREW Hodge Ot 723.4 12/25/2014 Ot 214.9 12/25/2014 Ot 550.90 12/25/2014 Ot V72.63 12/25/2014 Ot V74.8 12/25/2014 Ot 789.04 12/25/2014 FERN RIVERA, TRISHA Rodas Ot 592.9 12/25/2014 NEVILLE RIVERA, ANDREW Hodge Ot 723.4 12/25/2014 NEVILLE RIVERA, ANDREW Hodge Ot 723.4 06/20/2015 NEVILLE RIVERA, ANDREW Hodge Ot M54.16 07/08/2015 NEVILLE RIVERA, ANDREW Hodge Ot M54.16 04/22/2016 Ot 214.9 LIPOMA NOS 04/22/2016 Ot 550.90 UNILAT INGUINAL HERNIA 04/22/2016 Ot V72.63 PRE- PROCEDURAL LABORATORY EXAMINATION 04/22/2016 Ot V74.8 SCREEN- BACTERIAL DIS NEC 04/22/2016 Ot 789.04 ABDOMINAL PAIN, LEFT LOWER QUADRANT 04/22/2016 FERN RIVERA, TRISHA Rodas Ot 592.9 URINARY CALCULUS NOS 04/22/2016 NEVILLE RIVERA, ANDREW Hodge Ot 723.4 BRACHIAL NEURITIS NOS 04/22/2016 NEVILLE RIVERA, ANDREW Hodge Ot 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.4 BRACHIAL NEURITIS NOS 04/22/2016 NEVILLE RIVERA, ANDREW Hodge Ot M54.16 RADICULOPATHY, LUMBAR REGION 09/29/2016 MYA THAYER APRN Ot R07.81 PLEURODYNIA 04/21/2017 ROMULO HORNE DO Ot R07.9 CHEST PAIN, UNSPECIFIED 08/12/2017 Ot 789.04 ABDOMINAL PAIN, LEFT LOWER QUADRANT 08/12/2017 FERN RIVERA, TRISHA Rodas Ot 592.9 URINARY CALCULUS NOS 08/12/2017 NEVILLE RIVERA, ANDREW Hodge Ot 723.4 BRACHIAL NEURITIS NOS 08/12/2017 NEVILLE RIVERA, ANDREW Hodge Ot 723.4 BRACHIAL NEURITIS NOS 08/12/2017 NEVILLE RIVERA, ANDREW Hodge Ot M54.16 RADICULOPATHY, LUMBAR REGION 08/12/2017 MYA THAYER FORGE HAND Ot R07.81 PLEURODYNIA 08/12/2017 HORNE DO, ROMULO Ot R07.9 CHEST PAIN, UNSPECIFIED 08/12/2017 Ot 789.04 ABDOMINAL PAIN, LEFT LOWER QUADRANT 08/12/2017 FERN RIVERA, TRISHA Rodas Ot 592.9 URINARY CALCULUS NOS 08/12/2017 NEVILLE RIVERA, ANDREW P Ot 723.4 BRACHIAL NEURITIS NOS 08/12/2017 NEVILLE RIVERA, ANDREW P Ot 723.4 BRACHIAL NEURITIS NOS 08/12/2017 NEVILLE RIVERA, ANDREW P Ot M54.16 RADICULOPATHY, LUMBAR REGION 08/12/2017 MYA THAYER FORGE HAND Ot R07.81 PLEURODYNIA 08/12/2017 COLEEN REDDY ROMULO Ot R07.9 CHEST PAIN, UNSPECIFIED 08/12/2017 Ot 789.04 ABDOMINAL PAIN, LEFT LOWER QUADRANT 08/12/2017 FERN RIVERA, TRISHA Rodas Ot 592.9 URINARY CALCULUS NOS 08/12/2017 NEVILLE RIVERA, ANDREW P Ot 723.4 BRACHIAL NEURITIS NOS 08/12/2017 NEVILLE RIVERA, ANDREW P Ot 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.4 BRACHIAL NEURITIS NOS 08/12/2017 NEVILLE RIVERA, ANDREW P Ot M54.16 RADICULOPATHY, LUMBAR REGION 08/12/2017 MYA THAYER APRN Ot R07.81 PLEURODYNIA 08/12/2017 COLEEN REDDY ROMULO Ot R07.9 CHEST PAIN, UNSPECIFIED 08/12/2017 Ot 789.04 ABDOMINAL PAIN, LEFT LOWER QUADRANT 08/12/2017 FERN RIVERA, TRISHA Rodas Ot 592.9 URINARY CALCULUS NOS 08/12/2017 NEVILLE RIVERA, ANDREW P Ot 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.4 BRACHIAL NEURITIS NOS 08/12/2017 NEVILLE RIVERA, ANDREW P Ot 723.4 BRACHIAL NEURITIS NOS 08/12/2017 NEVILLE RIVERA, ANDREW P Ot M54.16 RADICULOPATHY, LUMBAR REGION 08/12/2017 MYA THAYER FORGE HAND Ot R07.81 PLEURODYNIA 08/12/2017 COLEEN REDDY ROMULO Ot R07.9 CHEST PAIN, UNSPECIFIED 01/11/2018 FERN RIVERA, TRIHSA Rodas Ot 592.9 URINARY CALCULUS NOS 01/11/2018 NEVILLE RIVERA, ANDREW Hodge Ot 723.4 BRACHIAL NEURITIS NOS 01/11/2018 ANDREW LOZADA MD Ot 723.4 BRACHIAL NEURITIS NOS 01/11/2018 ANDREW LOZADA MD Ot M54.16 RADICULOPATHY, LUMBAR REGION 01/11/2018 MYA THAYER APRN Ot R07.81 PLEURODYNIA 01/11/2018 ROMULO HORNE DO Ot R07.9 CHEST PAIN, UNSPECIFIED Procedures There is no data. Results There is no data. Encounters ACCT No. Visit Date/Time Discharge Status Pt. Type Provider Facility Loc./Unit Complaint [id number] 04/09/2017 06:41:00 04/09/2017 23:59:59 CLS Outpatient ROMULO HORNE DO [facility] CARD CHEST PAIN [id number] 09/04/2016 08:22:00 09/04/2016 23:59:59 CLS Outpatient MYA THAYER APRN [facility] RAD RIB/CHEST PAIN [id number] 06/18/2015 11:57:00 06/18/2015 23:59:59 CLS Outpatient ANDREW LOZADA MD [facility] RAD LUMBAR RADICULOPATHY [id number] 10/20/2014 13:42:00 10/20/2014 15:27:00 DIS Emergency LION RIVERA, LEENA Carballo [facility] ER ABD AND LOWER BACK PAIN [id number] 04/09/2014 16:06:00 04/09/2014 23:59:59 CLS Outpatient ANDREW LOZADA MD [facility] RAD L C5 RADICULOPATHY [id number] 02/28/2014 10:52:00 02/28/2014 23:59:59 CLS Outpatient ANDREW LOZADA MD [facility] RAD L C5 RADICULAPATHY [id number] 03/27/2013 13:47:00 03/27/2013 23:59:59 CLS Outpatient TRISHA SHIRLEY MD [facility] LAB STONE [id number] 03/21/2013 05:54:00 03/21/2013 10:15:00 DIS Outpatient FERN RIVERA, TRISHA Rodas [facility] SDC LEFT STONE [id number] 03/13/2013 22:51:00 03/14/2013 00:29:00 DIS Emergency HENRRY DUCKWORTH MD [facility] ER KIDNEY STONES [id number] 03/22/2018 09:46:00 ACT Outpatient ANGEL RIVERA FACC, TANVIR CALHOUN CCDS [facility] CATH ANGINA,SOB,DIZZINESS, PALIPITATIONS [id number] 04/29/2012 12:01:00 Document Registration [id number] 04/13/2012 08:42:00 Document Registration [id number] 02/11/2012 05:32:00 Document Registration [id number] 02/08/2012 12:04:00 Document Registration [id number] 03/08/2014 15:08:08 03/08/2014 15:08:09 DIS Outpatient [id number] 03/11/2017 09:56:11 03/11/2017 23:59:59 CLS Outpatient
[2018-03-22] MEDS ORDERED: HEParin (CATH LAB) 2,000 ML IV ONE (09:51)
[2018-03-22] MEDS ORDERED: NS IV 1000 ML 1,000 ML ONE (09:51)
[2018-03-22] MEDS ORDERED: LIDOCAINE 1% INJ 20 ML 20 ML VIAL ONE (09:51)
[2018-03-22] MEDS ORDERED: NS IV 1000 ML 1,000 ML IV SCH ×2 (10:00→13:23)
[2018-03-22] MEDS ORDERED: METO-352 PO (10:13)
[2018-03-22] MEDS ORDERED: TRAM50TA2 PO (10:13)
[2018-03-22] MEDS ORDERED: ASPI-586 PO (10:13)
[2018-03-22 10:15] LABS: HEMOGLOBIN 16.6 G/DL (13.3-17.7); MEAN PLATELET VOLUME 10.8 FL (7.4-10.4); RED BLOOD COUNT 5.77 10^6/uL (4.35-5.85); RED CELL DISTRIBUTION WIDTH 12.5 % (10.0-14.5); WHITE BLOOD COUNT 5.9 10^3/uL (4.3-11.0)
[2018-03-22 10:28] LABS: PROTHROMBIN TIME PATIENT 12.6 SEC (12.2-14.7)
[2018-03-22] MEDS ORDERED: FLU QUADRIvalent (5+ YOA) 2018-2019 (AFLURIA) 0.5 ML IM ONE (10:30)
[2018-03-22 10:34] LABS: ALANINE AMINOTRANSFERASE 46 U/L (0-55); ALBUMIN 4.7 GM/DL (3.2-4.5); ALKALINE PHOSPHATASE 81 U/L (40-136); BILIRUBIN,TOTAL 1.1 MG/DL (0.1-1.0); BUN/CREATININE RATIO 10; CALCIUM 9.6 MG/DL (8.5-10.1); CARBON DIOXIDE 27 MMOL/L (21-32); CHLORIDE 105 MMOL/L (98-107); CHOLESTEROL 199 MG/DL (< 200); GFR ESTIMATED > 60; GLUCOSE 96 MG/DL (70-105); HDL CHOLESTEROL 51 MG/DL (40-60); POTASSIUM 4.3 MMOL/L (3.6-5.0); SODIUM 140 MMOL/L (135-145); TOTAL PROTEIN 7.4 GM/DL (6.4-8.2); TRIGLYCERIDES 82 MG/DL (<150); VLDL CHOLESTEROL 16 MG/DL (5-40)
[2018-03-22] MEDS ORDERED: fentaNYL INJECTION 100 MCG/2 ML AMP ONE (12:26)
[2018-03-22] MEDS ORDERED: MIDAZOLAM 5 MG/5 ML (VERSED) VIAL ONE (12:26)
--- NOTE | 2018-03-22 13:23 | Cardiac Procedure Note-CS/ASA ---
Pre-Procedure Note Pre-Op Procedure Note H&P Reviewed The H&P was reviewed, patient examined and no changes noted. Date H&P Reviewed: Mar 22, 2018 Time H&P Reviewed: 12:50 Conscious Sedation Pre-Proced Time 12:50 ASA Score 3 For ASA 3 and 4: Consider anesthesia and medical clearance. Also, for patients with a history of failed moderate sedation consider anesthesia. Airway Lungs Heart ASA score ASA 1: a normal healthy patient ASA 2: a patient with a mild systemic disease (mid diabetes, controlled hypertension, obesity ASA 3: a patient with a severe systemic disease that limits activity (angina , COPD, prior Myocardial infarction) ASA 4: a patient with an incapacitating disease that is a constant threat to life (CHF, renal failure) ASA 5: a moribund patient not expected to survive 24 hrs. (ruptured aneurysm) ASA 6: a declared brain patient whose organs are being harvested. For emergent operations, add the letter E after the classification Mallampati Classification Grade 2 Sedation Plan Analgesia, Amnesia, Plan communicated to team members, Discussed options with patient/fam, Discussed risks with patient/fam The patient is an appropriate candidate to undergo the planned procedure, sedation, and anesthesia. The patient immediately re-assessed prior to indication. TANVIR ORTIZ MD FACP FAC CCDS Mar 22, 2018 13:23
--- NOTE | 2018-03-22 13:26 | Discharge Inst-Post CATH ---
Discharge Inst-CATH Post Cardiac Cath D/C Inst Follow Up/Plan F/u with Dr Mendez in 2 weeks CARDIAC CATH DISCHARGE INSTRUCTIONS *Hold Metformin for 48 hours post heart cath. ACTIVITY * Go Home directly and rest. * Limit activity of the leg (or wrist if it was used) for 7 days including aerobics, swimming, jogging, bicycling, etc. * Restrict stair-climbing for 7 days if possible, if not, climb up with your non -cath leg, then bring together on the same step. * Avoid lifting, pushing, pulling or excessive movement of the affected extremity for 7 days. * Customary sexual activity may be resumed after 2 days-use caution not to use a position that strains or causes pain to the affected extremity. * No driving for 24 hours. * NO SMOKING. * Avoid straining for bowel movements for 7 days. * Gentle walking on level ground is allowed. * Returning to work will depend on the type of procedure and the results. Your doctor will discuss this with you. CALL YOUR DOCTOR FOR ANY OF THE FOLLOWING: *If bleeding from the puncture site occurs- Apply gentle pressure to site with clean cloth and call your doctor or EMS. * If a knot or lump forms under the skin, increases in size, or causes pain. * If bruising appears to be worsening or moving further down your leg instead of disappearing. * Temperature above 101 F. CARE OF YOUR GROIN INCISION; * Bruising or purple discoloration of the skin near the puncture site is common. * You may shower only, no bathtub bathing for 5 days. Be careful to avoid slipping as your leg may feel stiff. * If a closure device was used on your femoral artery, please see the attached guide regarding care of the device and your leg. * Leave the dressing on, until removed by office staff. CARE OF YOUR WRIST INCISION; * Bruising or purple discoloration of the skin near the puncture site is common. * You may shower. * DO NOT submerge wrist. * Leave dressing on, until removed by office staff.. TANVIR MENDEZ MD [facility] CCDS Mar 22, 2018 13:26
--- NOTE | 2018-03-22 13:27 | Discharge Inst-Cardiology ---
Discharge Inst-Cardiac Discharge Medications Continued Medications: Aspirin (Aspir 81) 81 Mg Tablet.dr 81 MG PO DAILY, TAB Metoprolol Succinate (Toprol Xl) 50 Mg Tab.er.24h 50 MG PO DAILY, TAB Tramadol HCl (Tramadol HCl) 50 Mg Tablet 50 MG PO Q6H PRN for PAIN-MILD, TAB TANVIR ORTIZ MD FACP FACC CCDS Mar 22, 2018 13:27
[2018-03-22] MEDS ORDERED: PATIENT MAY USE OWN MEDS, ALL PO SCH (13:30)
--- NOTE | 2018-03-22 16:58 | CARDIAC CATHETERIZATION ---
DATE OF SERVICE: 03/22/2018 CARDIAC CATHETERIZATION REPORT INDICATION: The patient is a 47-year-old man with coronary artery disease risk factors, who has been having exertional chest discomfort. Cardiac catheterization was carried out today after having obtained an informed consent. PROCEDURE IN DETAIL: He was brought to the cardiac catheterization laboratory in a fasting state. Right groin was prepared and draped in the usual sterile fashion. Lidocaine 1% was used for local anesthesia. Modified Seldinger technique was used to advance a 5-Tristanian sheath in the right femoral artery. A 5-Tristanian JL4 catheter was used for left coronary angiography. A 5-Tristanian JR4 catheter was used for right coronary angiography. A 5-Tristanian pigtail catheter was used for left heart catheterization, left ventricular angiography. A 5-Tristanian pigtail catheter was pulled back to the aortic root and aortic root angiography was performed. The pigtail catheter was removed. Angiography of the right femoral artery had been carried out through the sheath at the beginning of the procedure. At the end of the procedure, Mynx was used to achieve hemostasis. He tolerated the procedure well. HEMODYNAMICS: Left ventricular end-diastolic pressure following coronary angiography was 17 mmHg. There was no significant pressure gradient on pullback across the aortic valve. Ascending aortic pressure is 126/85 with a mean of 53 mmHg. LEFT VENTRICULAR ANGIOGRAPHY: Left ventricular angiography was carried out in the right anterior oblique projection. Global left ventricular systolic function was normal. No regional wall motion abnormalities were seen. Left ventricular ejection fraction is approximately 65%. There does not appear to be significant mitral regurgitation. CORONARY ANGIOGRAPHY: Left main coronary artery is free of significant disease. Left anterior descending artery is free of significant disease. Left circumflex artery is free of significant disease. Right coronary artery is dominant and free of significant disease. AORTIC ROOT ANGIOGRAPHY: Aortic root angiography did not indicate any significant ascending aortic aneurysm or dissection. The aortic valve leaflets exhibit good leaflet excursion. No significant aortic regurgitation are seen. Coronary arteries are identified. CONCLUSIONS: 1. No angiographically significant coronary artery disease. 2. Normal global left ventricular systolic function with ejection fraction of 65%. 3. No evidence of thoracic aortic aneurysm or dissection. DISCUSSION AND RECOMMENDATIONS: Based on the results of the study, chest discomfort does not appear to be of cardiac origin. Continuing risk factor modification is advised. Outpatient followup is advised. Job ID: [id number] DocumentID: [id number] Dictated Date: 03/22/2018 13:38:10 Supply Aide Date: 03/22/2018 16:58:05 Dictated By: TANVIR ORTIZ MD, MA, FACP, FACC,
== END 2018-03-22 16:40 | disposition home or self-care (01) ==
LOC: CATH 09:46 → SDC 13:35 → CATH 16:40
PROVIDERS: ATTEND Internal Medicine Cardiovascular Disease
DX: R07.89 Other chest pain (principal); R06.02 Shortness of breath; Z87.891 Personal history of nicotine dependence
CPT/HCPCS: 36415; 80053; 80061; 85027; 85610; 85730; 87081; 93458; 93567

== ENCOUNTER 2018-03-27 20:05 | Emergency (ER) | payer BC ==
[~2018-03-27] VITALS: Ht 182.9 cm; Wt 90.7 kg
[~2018-03-27 20:05] MED LIST changes: +ASPI-586 PO; +METO-352 PO; +TRAM50TA2 PO
--- NOTE | 2018-03-27 20:30 | ED Chest Pain ---
General Stated Complaint: HAD HEART CATH TUES AND HAVING CHEST PAIN Source: patient Exam Limitations: no limitations History of Present Illness Date Seen by Provider: Mar 27, 2018 Time Seen by Provider: 20:04 Initial Comments The patient presents to ER by private conveyance with chief complaint that he's having some chest pain on the left side deep not really reproduced by pressure on his chest. He says he also having some left-sided abdominal pain left of the umbilicus and radiating towards the left side. It is not really exertional. Started up today. He would be worried about it except he had a heart catheter couple days ago. No stents placed. He is on aspirin and a blood pressure medicine. No history of diabetes hypercholesterol, hypothyroidism, smoking, drugs. Known to Dr. Hawthorne. His site of insertion in his right groin is normal nonbulging non-red nonpulsatile he says. Not given him any pain there. He got a heart catheter because he was recently seen for some chest pains and had a stress test year ago and they decided to go straight to the heart catheter instead of repeating a stress test Allergies and Home Medications Allergies Coded Allergies: Sanjuana Known Allergies (Verified Allergy, Unknown, 06/24/05) Home Medications Aspirin 81 Mg Tablet.dr, 81 MG PO DAILY, (Reported) Metoprolol Succinate 50 Mg Tab.er.24h, 50 MG PO DAILY, (Reported) Tramadol HCl 50 Mg Tablet, 50 MG PO Q6H PRN for PAIN-MILD, (Reported) Patient Home Medication List Home Medication List Reviewed: Yes Review of Systems Review of Systems Constitutional: No chills, No diaphoresis EENTM: No Blurred Vision, No Double Vision Respiratory: Denies Cough, Denies Shortness of Air Cardiovascular: See HPI, Chest Pain; Denies Edema, Denies Palpitations, Denies Syncope Gastrointestinal: Denies Constipated, Denies Diarrhea, Denies Nausea, Denies Vomiting Genitourinary: Denies Burning, Denies Discharge, Denies Drainage Musculoskeletal: No back pain, No joint pain Skin: No pruritus, No rash Psychiatric/Neurological: Denies Headache, Denies Numbness, Denies Paresthesia Past Swytuen-Uvwqbz-Wpamqa Hx Patient Social History Alcohol Use: Occasionally Uses Recreational Drug Use: No Smoking Status: Never a Smoker Recent Foreign Travel: No Contact w/Someone Who Travel: No Immunizations Up To Date Tetanus Booster (TDap): Unknown Date of Pneumonia Vaccine: Mar 21, 2008 Date of Influenza Vaccine: Mar 03, 2012 Seasonal Allergies Seasonal Allergies: No Past Medical History Gallbladder, Tonsillectomy Headaches /Migraines Reproductive Disorders: No Sexually Transmitted Disease: No HIV/AIDS: No Kidney Stones Chronic Back Pain Adverse Reaction/Blood Tranf: No Physical Exam Vital Signs Capillary Refill : Height, Weight, BMI Height: 6'0.00" Weight: 216lbs. 0.0oz. 97.268826jl; 29.3 BMI Method:Stated General Appearance: No Apparent Distress, WD/WN HEENT: PERRL/EOMI, Pharynx Normal, Moist Mucous Membranes Neck: Full Range of Motion, Normal Inspection, Non Tender, Supple Respiratory: No Chest Non Tender; Lungs Clear, Normal Breath Sounds, No Accessory Muscle Use, No Respiratory Distress Cardiovascular: Regular Rate, Rhythm, No Edema, Normal Peripheral Pulses Gastrointestinal: Normal Bowel Sounds, No Organomegaly, Non Tender, Soft Extremity: Normal Capillary Refill, No Pedal Edema Neurologic/Psychiatric: Alert, Oriented x3, No Motor/Sensory Deficits, Normal Mood/Affect Progress/Results/Core Measures Results/Orders Lab Results Laboratory Tests Test 03/27/18 20:27 Range/Units White Blood Count 7.0 4.3-11.0 10^3/uL Red Blood Count 5.06 4.35-5.85 10^6/uL Hemoglobin 14.7 13.3-17.7 G/DL Hematocrit 43 40-54 % Mean Corpuscular Volume 85 80-99 FL Mean Corpuscular Hemoglobin 29 25-34 PG Mean Corpuscular Hemoglobin Concent 34 32-36 G/DL Red Cell Distribution Width 12.5 10.0-14.5 % Platelet Count 269 130-400 10^3/uL Mean Platelet Volume 10.8 H 7.4-10.4 FL Neutrophils (%) (Auto) 49 42-75 % Lymphocytes (%) (Auto) 40 12-44 % Monocytes (%) (Auto) 8 0-12 % Eosinophils (%) (Auto) 3 0-10 % Basophils (%) (Auto) 1 0-10 % Neutrophils # (Auto) 3.4 1.8-7.8 X 10^3 Lymphocytes # (Auto) 2.8 1.0-4.0 X 10^3 Monocytes # (Auto) 0.6 0.0-1.0 X 10^3 Eosinophils # (Auto) 0.2 0.0-0.3 10^3/uL Basophils # (Auto) 0.0 0.0-0.1 10^3/uL Sodium Level 139 135-145 MMOL/L Potassium Level 5.0 3.6-5.0 MMOL/L Chloride Level 106 98-107 MMOL/L Carbon Dioxide Level 21 21-32 MMOL/L Anion Gap 12 5-14 MMOL/L Blood Urea Nitrogen 20 H 7-18 MG/DL Creatinine 1.23 0.60-1.30 MG/DL Estimat Glomerular Filtration Rate > 60 BUN/Creatinine Ratio 16 Glucose Level 129 H 70-105 MG/DL Calcium Level 9.2 8.5-10.1 MG/DL Corrected Calcium 9.1 8.5-10.1 MG/DL Magnesium Level 2.6 H 1.8-2.4 MG/DL Total Bilirubin 0.5 0.1-1.0 MG/DL Aspartate Amino Transf (AST/SGOT) 54 H 5-34 U/L Alanine Aminotransferase (ALT/SGPT) 108 H 0-55 U/L Alkaline Phosphatase 91 40-136 U/L Myoglobin 53.8 10.0-92.0 NG/ML Troponin I < 0.30 <0.30 NG/ML B-Type Natriuretic Peptide < 10.0 <100.0 PG/ML Total Protein 7.1 6.4-8.2 GM/DL Albumin 4.1 3.2-4.5 GM/DL Progress Progress Note : Time: 21:18 Progress Note Cardiac catheterization by Dr. Hawthorne, Wednesday03/22/18. No angiographically significant coronary artery disease. 2. Normal global left ventricular systolic function with ejection fraction of 65%. 3. No evidence of thoracic aortic aneurysm or dissection. Patient's vital signs are unremarkable. He does have some reproducibility of his chest pain and pressure when I press on the chest. Could be chest wall arthritis. No real cough or fevers chills cold symptoms bronchitis symptoms. Not pleuritic in nature. Probably be further followed up outpatient. Initial ECG Impression Date: Mar 27, 2018 Initial ECG Impression Time: 20:10 Initial ECG Rate: 82 Initial ECG Rhythm: Normal Sinus Initial ECG Intervals: Normal Initial ECG Impression: Normal Initial ECG Comparisson: Unchanged Comment No ST elevation or depression. Diagnostic Imaging Diagonstic Imaging: Xray Plain Films/CT/US/NM/MRI: chest Comments [facility] [place] NAME: FREEDOM RAINEY JR [facility] REC#: [id number] PT STATUS: REG ER : 1970 PHYSICIAN: REINA ABBASI [employer] ADMIT DATE: 03/27/18/ER Draft Date of Exam:03/27/18 CHEST 1 VIEW, AP/PA ONLY INDICATION: Recent heart catheterization COMPARISON: 04/29/2012 FINDINGS: Single frontal view of the chest demonstrates normal heart size and pulmonary vascularity. The lungs show low inspiratory volumes with right basilar atelectasis, but are otherwise clear. No large pleural effusion or pneumothorax is seen. The visualized osseous structures show no acute abnormalities. IMPRESSION: 1. No acute cardiopulmonary process. Dictated on workstation # [id number] Dict: 03/27/182052 Trans: 03/27/182054 [facility] [id number] Interpreted by: OFELIA SLOAN MD Electronically signed by: Reviewed: Reviewed by Me Consults : Consulting Physician: Suzie VALADEZ MD Consults Notes Discussed case lab imaging findings and the recent catheterization and he agrees that this is not coronary or heart catheter related. He recommends looking for alternative cause. Departure Impression Primary Impression: Anterior chest wall pain Disposition: HOME, SELF-CARE Condition: Stable Departure-Patient Inst. Decision time for Depature: 21:23 Referrals: THELMA EGAN MD (PCP/Family) Primary Care Physician Patient Instructions: Chest Pain That Is Not Caused by the Heart (DC) Add. Discharge Instructions: If your chest wall pain continues to persist then you should follow-up with your primary care doctor for further evaluation and reasons to be causing it. For now I recommend using Tylenol and/or Motrin as well as topical creams such as icy hot or Biofreeze. Copy Copies To 1: THELMA EGAN MD, TITUS J Mar 27, 2018 20:30
[2018-03-27 20:35] LABS: BASOPHILS % (AUTO) 1 % (0-10); EOSINOPHILS # (AUTO) 0.2 10^3/uL (0.0-0.3); EOSINOPHILS % (AUTO) 3 % (0-10); HEMATOCRIT 43 % (40-54); HEMOGLOBIN 14.7 G/DL (13.3-17.7); LYMPHOCYTES # (AUTO) 2.8 X 10^3 (1.0-4.0); LYMPHOCYTES % (AUTO) 40 % (12-44); MEAN CORPUSCULAR HEMOGLOBIN 29 PG (25-34); MEAN CORPUSCULAR HGB CONC 34 G/DL (32-36); MEAN CORPUSCULAR VOLUME 85 FL (80-99); MEAN PLATELET VOLUME 10.8 FL (7.4-10.4); MONOCYTES # (AUTO) 0.6 X 10^3 (0.0-1.0); MONOCYTES % (AUTO) 8 % (0-12); NEUTROPHILS # (AUTO) 3.4 X 10^3 (1.8-7.8); NEUTROPHILS % (AUTO) 49 % (42-75); PLATELET COUNT 269 10^3/uL (130-400); RED BLOOD COUNT 5.06 10^6/uL (4.35-5.85); RED CELL DISTRIBUTION WIDTH 12.5 % (10.0-14.5)
[2018-03-27 20:52] LABS: ALANINE AMINOTRANSFERASE 108 U/L (0-55); ALBUMIN 4.1 GM/DL (3.2-4.5); ALKALINE PHOSPHATASE 91 U/L (40-136); BILIRUBIN,TOTAL 0.5 MG/DL (0.1-1.0); BUN/CREATININE RATIO 16; CALCIUM 9.2 MG/DL (8.5-10.1); CARBON DIOXIDE 21 MMOL/L (21-32); CHLORIDE 106 MMOL/L (98-107); CREATININE SERUM 1.23 MG/DL (0.60-1.30); GFR ESTIMATED > 60; GLUCOSE 129 MG/DL (70-105); MAGNESIUM 2.6 MG/DL (1.8-2.4); SODIUM 139 MMOL/L (135-145); TOTAL PROTEIN 7.1 GM/DL (6.4-8.2)
--- NOTE | 2018-03-27 20:56 | Diagnostic Imaging Report ---
INDICATION: Recent heart catheterization COMPARISON: 04/29/2012 FINDINGS: Single frontal view of the chest demonstrates normal heart size and pulmonary vascularity. The lungs show low inspiratory volumes with right basilar atelectasis, but are otherwise clear. No large pleural effusion or pneumothorax is seen. The visualized osseous structures show no acute abnormalities. IMPRESSION: 1. No acute cardiopulmonary process. Dictated by: Dictated on workstation # [id number]
[2018-03-27 20:59] LABS: MYOGLOBIN SERUM 53.8 NG/ML (10.0-92.0)
[2018-03-27 21:48] VITALS: BP 136/89
== END 2018-03-27 21:48 | disposition home or self-care (01) ==
LOC: EDUNIT# 20:05 → ER 20:08
DX: R07.89 Other chest pain (principal); G43.909 Migraine, unspecified, not intractable, without status migrainosus; Z90.89 Acquired absence of other organs; Z87.442 Personal history of urinary calculi; Z79.82 Long term (current) use of aspirin; Z95.9 Presence of cardiac and vascular implant and graft, unspecified
CPT/HCPCS: 36415; 71045; 80053; 83735; 83874; 83880; 84484; 85025; 93005; 93041

== ENCOUNTER → 2018-04-06 | Outpatient (CLI) | payer BC ==
[~2018-04-06] MED LIST changes: +IOHEXOL 350 MG/ML 150 ML (OMNIPAQUE 350) VIAL IV ONE; +NS 250 ML (IVPB) BAG IV ONE; +RECEIVED CONTRAST (Hold Metformin) IV SCH
--- NOTE | 2018-04-06 18:05 | Diagnostic Imaging Report ---
INDICATION: Chest pain. TECHNIQUE: CTA chest obtained with IV contrast bolus and axial slices and MIP reconstructions. FINDINGS: The pulmonary parenchymal vessels are well opacified with no CT evidence of pulmonary emboli. There is no evidence of aortic dissection or aneurysm. Great vessel origins appear unremarkable. There is no pleural or pericardial fluid. Visualized portions of the upper abdomen were unremarkable. There is no mediastinal or hilar adenopathy. Lung parenchymal windows demonstrate some minimal dependent atelectatic change in the right lung base. There is a small pulmonary nodule in the right middle lobe measuring about 6 mm. There is no previous study for comparison. IMPRESSION: 1. No CT evidence of pulmonary emboli or aortic dissection. No acute infiltrate. There is some dependent atelectatic change in the right lung base. 2. There is a 6 mm pulmonary nodule in the right middle lobe. This may represent granuloma or small neoplasm, we have no prior studies for comparison. Recommend followup study in 6 to 12 months. Dictated by: Dictated on workstation # [id number]
== END ==
LOC: RAD 16:53
PROVIDERS: ATTEND Internal Medicine Cardiovascular Disease
DX: R91.1 Solitary pulmonary nodule (principal); I10 Essential (primary) hypertension; J98.11 Atelectasis
CPT/HCPCS: 71275

== ENCOUNTER 2018-04-12 08:23 | Outpatient (CLI) | payer BC ==
[~2018-04-12] VITALS: Ht 182.9 cm; Wt 97.5 kg
[~2018-04-12 08:23] MED LIST changes: -IOHEXOL 350 MG/ML 150 ML (OMNIPAQUE 350) VIAL IV ONE; -NS 250 ML (IVPB) BAG IV ONE; -RECEIVED CONTRAST (Hold Metformin) IV SCH
== END 2018-04-12 14:29 | disposition home or self-care (01) ==
LOC: PREOP 08:23
PROVIDERS: ATTEND Surgery
DX: Z01.818 Encounter for other preprocedural examination (principal)

== ENCOUNTER 2018-04-18 12:13 | Day surgery (SDC) | payer BC ==
[~2018-04-18] VITALS: Ht 182.9 cm; Wt 97.5 kg
--- OUTSIDE RECORDS SUMMARY | 2018-04-18 12:18 | XMS REPORT | CCD ---
Author Author Noemi Mercado Organization [facility] Address [address] [place] [address] Phone Care Team Providers Care Aitchbone Breaker Name Role Phone PP Unavailable CCM Unavailable Summary Purpose Interface Exchange Insurance Providers Payer name Policy type / Coverage type Covered green party ID Effective Begin Date Effective End Date Blue Cross Blue Shield [facility] Blue Cross/Blue Shield [id number] Unknown Unknown Family history Mother Diagnosis Age At Onset Alcoholism Unknown Father Diagnosis Age At Onset Arthritis Unknown Skin cancer Unknown Alcoholism Unknown Brother Diagnosis Age At Onset Alcoholism Unknown Sister Diagnosis Age At Onset Alcoholism Unknown Social History Social History Element Codes Description Effective Dates Marital status Unknown 11/01/2015 Employment Unknown Currently employed [employer] 11/01/[address]: 531238717 Never smoker 11/01/[address]: 772366689 Never drinks alcohol 11/01/2015 Allergies, Adverse Reactions, Alerts Substance Reaction Codes Entered Date Inactivated Date Status * NO KNOWN DRUG ALLERGIES Unknown 11/01/2015 No Inactive Date Active Past Medical History Illness Codes Condition Status Onset Date Resolved Date Other chest pain ICD-9 : 786.59 ICD-10: R07.89 Active 09/03/2016 Unknown Pain in left shoulder ICD-9: 719.41 ICD-10: M25.512 Active 03/29/2018 Unknown Encounter for general adult medical examination with abnormal findings ICD-9: V70.0 ICD-10: Z00.01 Active 03/11/2018 Unknown Generalized anxiety disorder ICD-9: 300.02 ICD-10: F41.1 Active 01/07/2017 Unknown Low back pain ICD-9: 724.2 ICD-10: M54.5 Active 11/11/2015 Unknown Pleurodynia ICD-9: 786.50 ICD-10: R07.81 Active 09/03/2016 Unknown Other intervertebral disc displacement, 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 Active 11/11/2015 Unknown Localized enlarged lymph nodes ICD-9: 785.6 ICD-10: R59.0 Active 10/31/2015 Unknown Other insomnia ICD-9: 327.09 ICD-10: G47.09 Active 10/31/2015 Unknown Other muscle spasm ICD -9: 728.85 ICD-10: M62.838 Active 10/31/2015 Unknown Problems Condition Codes Effective Dates Condition Status Other chest pain ICD-9 : 786.59 ICD-10: R07.89 09/03/2016 Active Pain in left shoulder ICD-9: 719.41 ICD-10: M25.512 03/29/2018 Active Encounter for general adult medical examination with abnormal findings ICD-9: V70.0 ICD-10: Z00.01 03/11/2018 Active Generalized anxiety disorder ICD-9: 300.02 ICD-10: F41.1 01/07/2017 Active Low back pain ICD-9: 724.2 ICD-10: M54.5 11/11/2015 Active Pleurodynia ICD-9: 786.50 ICD-10: R07.81 09/03/2016 Active Other intervertebral disc displacement, 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 11/11/2015 Active Localized enlarged lymph nodes ICD-9: 785.6 ICD-10: R59.0 10/31/2015 Active Other insomnia ICD-9: 327.09 ICD-10: G47.09 10/31/2015 Active Other muscle spasm ICD -9: 728.85 ICD-10: M62.838 10/31/2015 Active Medications Medication Codes Instructions Start Date Stop Date Status Fill Instructions ibuprofen 800 mg tablet RxNorm: 912582 1 Tablet(s) PO TID as needed 03/29/2018 04/07/2018 Active tramadol 50 mg tablet RxNorm: 488984 1-2 Tablet(s) PO Q6 PRN 01/2018 No Stop Date Active Lexapro 10 mg tablet RxNorm: 471392 1 Tablet(s) PO QPM 201603/10/2018 Inactive cyclobenzaprine 5 mg tablet RxNorm: 673064 1/2 - 1 Tablet(s) PO TID as needed muscle spasms 11/01/2015 11/05/2015 Inactive prednisone 20 mg tablet RxNorm: 025945 2 Tablet(s) PO daily 05/201511/05/2015 Inactive Toprol XL 50 mg tablet,extended release RxNorm: 180708 1 Tablet(s) PO daily No Start Date Active Aspirin Low Dose 81 mg tablet,delayed release RxNorm: 940913 1 Tablet(s) PO daily No Start Date Active ibuprofen 800 mg tablet RxNorm: 014826 1 Tablet(s) PO as needed No Start Date 03/28/2018 Inactive oxycodone-acetaminophen 5 mg-325 mg tablet RxNorm: 1184266 Tablet(s) PO as needed No Start Date 03/28/2018 Inactive Cymbalta 20 mg capsule,delayed release RxNorm: 735722 1 Capsule(s) PO daily No Start Date 01/06/2017 Inactive oxycodone-acetaminophen 5 mg-325 mg tablet RxNorm: 2939956 Tablet(s) PO as needed No Start Date 11/01/2015 Inactive Medication Administered No Medication Administered data Immunizations No Immunization data Assessments Condition Codes Effective Dates Other chest pain ICD-10: R07.89 ICD-9: 786.59 03/29/2018 Pain in left shoulder ICD-10: M25.512 ICD-9: 719.41 03/29/2018 Encounter for general adult medical examination with abnormal findings ICD-10: Z00.01 ICD-9: V70.0 03/11/2018 Generalized anxiety disorder ICD-10: F41.1 ICD-9: 300.02 01/07/2017 Low back pain ICD-10: M54.5 ICD-9: 724.2 01/07/2017 Pleurodynia ICD-10: R07.81 ICD-9: 786.50 09/03/2016 Other intervertebral disc displacement, lumbar region ICD-10 : M51.26 ICD-9: 722.10 11/12/2015 Localized enlarged lymph nodes ICD-10: R59.0 ICD-9: 785.6 11/01/2015 Other muscle spasm ICD-10: M62.838 ICD-9: 728.85 11/01/2015 Other insomnia ICD-10: G47.09 ICD-9: 327.09 11/01/2015 Reason For Visit Reason For Visit Effective Dates Notes Hospital Follow Up 03/29/2018 well man exam (40-65 years) 03/11/2018 insomnia 01/07/2017 bone fracture 09/03/2016 sore throat 11/12/2015 sore throat 11/01/2015 Results Observation Observation Code Item Item Code Result Date Comp Metabolic Nzi369 NA 140 mEq/L 04/01/2016 Comp Metabolic Qhw549 K 4.7 mEq/L 04/01/2016 Comp Metabolic Xtw540 CL 105 mEq/L 04/01/2016 Comp Metabolic Vzu961 CO2 29.0 mEq/L 04/01/2016 Comp Metabolic Enh347 ANION GAP 11 04/01/2016 Comp Metabolic Osp981 GLUCOSE 99 mg/dL 04/01/2016 Comp Metabolic Sfa369 Creat 1.1 mg/dL 04/01/2016 Comp Metabolic Mmc530 eGFR 76 ml/min/1.73m2 04/01/2016 Comp Metabolic Yeu307 BUN 17 mg/dL 04/01/2016 Comp Metabolic Rwo797 B/C Ratio 15.3 Ratio 04/01/2016 Comp Metabolic Grm447 CALCIUM 9.5 mg/dL 04/01/2016 Comp Metabolic Zkn441 ALK PHOS 73 U/L 04/01/2016 Comp Metabolic Jko388 AST(SGOT) 35 U/L 04/01/2016 Comp Metabolic Khk532 ALT(SGPT) 74 U/L 04/01/2016 Comp Metabolic Man526 BILI T 0.6 mg/dL 04/01/2016 Comp Metabolic Uaw179 ALBUMIN 4.3 g/dL 04/01/2016 Comp Metabolic Lee572 TPRO 6.5 g/dL 04/01/2016 Comp Metabolic Lxy674 GLOB 2.2 g/dL 04/01/2016 Comp Metabolic Ovn060 A/G Ratio 1.9 Ratio 04/01/2016 Comp Metabolic Pwc290 Osmo 281 mOsmo 04/01/2016 Lipid Ord30 CHOL 186 mg/dL 04/01/2016 Lipid Ord30 HDL 48.0 mg/dl 04/01/2016 Lipid Ord30 TRIG 93 mg/dL 04/01/2016 Lipid Ord30 LDL 119 mg/dL 04/01/2016 Lipid Ord30 C/HDL 3.9 Ratio 04/01/2016 Tsh Ord6 hTSH II 2.06 uIU/mL 04/01/2016 Cbc With Differential Ord2 WBC 6.87 K/ul 04/01/2016 Cbc With Differential Ord2 RBC 5.47 M/ul 04/01/2016 Cbc With Differential Ord2 HGB 16.0 g/dl 04/01/2016 Cbc With Differential Ord2 Neut% 48.9 % 04/01/2016 Cbc With Differential Ord2 HCT 47.3 % 04/01/2016 Cbc With Differential Ord2 Lymph% 37.6 % 04/01/2016 Cbc With Differential Ord2 MCV 86.5 fl 04/01/2016 Cbc With Differential Ord2 MCH 29.3 pg 04/01/2016 Cbc With Differential Ord2 Jenkins% 10.3 % 04/01/2016 Cbc With Differential Ord2 Eos% 2.8 % 04/01/2016 Cbc With Differential Ord2 MCHC 33.8 pg 04/01/2016 Cbc With Differential Ord2 PLT 252 K/ul 04/01/2016 Cbc With Differential Ord2 Baso% 0.4 % 04/01/2016 Cbc With Differential Ord2 Neut ABS# 3.36 K/ul 04/01/2016 Cbc With Differential Ord2 RDW 12.8 % 04/01/2016 Cbc With Differential Ord2 Lymph ABS# 2.58 K/ul 04/01/2016 Cbc With Differential Ord2 Jenkins ABS# 0.7 K/ul 04/01/2016 Cbc With Differential Ord2 Eos ABS# 0.2 K/ul 04/01/2016 Cbc With Differential Ord2 Baso ABS# 0.0 K/ul 04/01/2016 Review of Systems System Result Effective Dates Constitutional No recent illness 2017 Constitutional No anorexia 03/29/2018 Constitutional No night sweats 2017 Constitutional No chills 03/29/2018 Constitutional No diaphoresis 03/29/2018 Constitutional No fatigue 03/29/2018 Constitutional No fever 03/29/2018 Constitutional No insomnia 03/29/2018 Constitutional No malaise 03/29/2018 Constitutional No weight loss 03/29/2018 Constitutional No weight gain 03/29/2018 Eyes No blindness 03/29/2018 Ears/Nose/Throat/Neck No nasal allergies 03/29/2018 Ears/Nose/Throat/Neck No nasal discharge 03/29/2018 Cardiovascular chest pain/pressure 2017 Cardiovascular dyspnea 03/29/2018 Respiratory No chest congestion 2017 Respiratory No dyspnea 03/29/2018 Gastrointestinal No abdominal pain 2017 Gastrointestinal No constipation 2017 Gastrointestinal No diarrhea 03/29/2018 Genitourinary/Nephrology No dysuria 03/29 Musculoskeletal back pain 03/29/2018 Musculoskeletal shoulder pain 03/29/2018 Dermatologic No rash 03/29/2018 Neurologic No alteration of consciousness 03/29/2018 Neurologic No mental status change 2017 Psychiatric No drug abuse 03/29/2018 Constitutional No recent illness 2017 Constitutional No [...] 1994 Constitutional general appearance Overall: well developed 03/29/2018 None Full Exam - General 1994 Constitutional general appearance Overall: in no acute distress 03/29/2018 None Full Exam - General 1994 Constitutional general appearance Overall: well nourished 03/29/2018 None Full Exam - General 1994 Eyes conjunctiva /eyelids Overall: conjunctiva clear 03/29/2018 None Full Exam - General 1994 Eyes conjunctiva /eyelids Overall: cornea clear 03/29/2018 None Full Exam - General 1994 Eyes conjunctiva /eyelids Overall: eyelids normal 03/29/2018 None Full Exam - General 1994 Ears/Nose/Throat otoscopic exam Overall: external auditory canals clear 03/29/2018 None Full Exam - General 1994 Ears/Nose/Throat otoscopic exam Overall: tympanic membranes clear 03/29/2018 None Full Exam - General 1994 Ears/Nose/Throat lips/teeth/gingiva Overall: benign lips 03/29/2018 None Full Exam - General 1994 Ears/Nose/Throat lips/teeth/gingiva Overall: normal dentition 03/29/2018 None Full Exam - General 1994 Ears/Nose/Throat oral cavity/pharynx/larynx Overall: oral mucosa clear 03/29/2018 None Full Exam - General 1994 Ears/Nose/Throat oral cavity/pharynx/larynx Overall: oropharyngeal mucosa clear 03/29/2018 None Full Exam - General 1994 Ears/Nose/Throat oral cavity/pharynx/larynx Overall: no masses 03/29/2018 None Full Exam - General 1994 Respiratory auscultation Overall: breath sounds clear bilaterally 03/29/2018 None Full Exam - General 1994 Respiratory respiratory effort/rhythm Overall: no retractions 03/29/2018 None Full Exam - General 1994 Respiratory respiratory effort/rhythm Overall: normal rate 03/29/2018 None Full Exam - General 1994 Cardiovascular extremities Overall: no clubbing 03/29/2018 None Full Exam - General 1994 Cardiovascular auscultation of heart Overall: regular rate 03/29/2018 None Full Exam - General 1994 Cardiovascular auscultation of heart Overall: normal heart sounds 03/29/2018 None Full Exam - General 1994 Abdomen abdominal exam Overall: no tenderness 03/29/2018 None Full Exam - General 1994 Abdomen abdominal exam Overall: normal bowel sounds 03/29/2018 None Full Exam - General 1994 Musculoskeletal spine, ribs and pelvis Overall: spine benign 03/29/2018 None Full Exam - General 1994 Musculoskeletal head and neck Overall: head atraumatic 03/29/2018 None Full Exam - General 1994 Integument inspection of skin Overall: no rash, lesions 03/29/2018 None Full Exam - General 1994 Neurologic cranial nerves Overall: crainial nerves 2 - 12 grossly intact 03/29/2018 None Full Exam - General 1994 Psychiatric orientation/consciousness Overall: oriented to person, place and time 03/29/2018 None Full Exam - General 1994 Psychiatric mood and affect Overall: normal mood and affect 03/29/2018 None Full Exam - General 1994 Psychiatric appearance Overall: well-groomed, good eye contact 03/29/2018 None Full Exam - General 1994 Musculoskeletal upper extremity Palpation - shoulder: pain with resisted abduction 03/29/2018 None Full Exam - General 1994 Musculoskeletal upper extremity Palpation - shoulder: pain with resisted biceps flexion 03/29/2018 None Full Exam - General 1994 Musculoskeletal upper extremity Palpation - shoulder: pain with resisted internal rotation 03/29/2018 None Full Exam - General 1994 Musculoskeletal upper extremity Palpation - shoulder: pain with resisted external rotation 03/29/2018 None Full Exam - General 1994 Constitutional [...] dentition 03/11/2018 None Full Exam - General 1994 [...] lips 01/07/2017 None Full Exam - General 1995 Ears/Nose/Throat lips/teeth/gingiva Overall: normal dentition 01/07/2017 None Full Exam - General 1994 Ears/Nose/Throat oral cavity/pharynx/larynx Overall: oral mucosa clear 01/07/2017 None Full Exam - General 1995 Ears/Nose/Throat oral cavity/pharynx/larynx Overall: oropharyngeal mucosa clear 01/07/2017 None Full Exam - General 1995 Ears/Nose/Throat oral cavity/pharynx/larynx Overall: no masses 01/07/2017 [...] No Procedures data Vital Signs Date Vital 03/29/2018 Blood Pressure 1: 118/76 Code : 8480-6 BMI: 29.7 Code : 02518-5 Heart Rate 1 : 67 bpm Height: 6' SpO2: 97% Weight: 219 lbs 03/11/2018 Blood Pressure 1: 138/90 Code : 8480-6 BMI: 28.8 Code : 14618-8 Heart Rate 1 : 68 bpm Height: 6' SpO2: 92% Weight: 212 lbs 01/07/2017 Blood Pressure 1: 134/82 Code : 8480-6 BMI: 29.3 Code : 08178-9 Heart Rate 1 : 78 bpm Height: 6' SpO2: 98% Weight: 216 lbs 09/03/2016 Blood Pressure 1: 145/88 Code : 8480-6 BMI: 29.0 Code : 62898-9 Heart Rate 1 : 84 bpm Height: 6' SpO2: 97% Weight: 214 lbs 11/12/2015 Blood Pressure 1: 133/88 Code : 8480-6 BMI: 28.1 Code : 46405-8 Heart Rate 1 : 67 bpm Height: 6' SpO2: 97% Weight: 207 lbs 11/01/2015 Blood Pressure 1: 138/78 Code : 8480-6 Blood Pressure 1: 150/90 Code: 8480-6 BMI: 27.5 Code: 67756-9 Heart Rate 1: 73 bpm Height: 6' SpO2: 98% Weight: 203 lbs Functional Status No Functional Status data History of Present Illness Symptom Name Status Result Effective Date Notes Hospital Follow Up _ Other: chest pain 03/29/2018 -recent heart cath Hospital Follow Up Quality acute 03/29/2018 None Hospital Follow Up Frequency of Episodes 2 days 03/29/2018 None Hospital Follow Up Severity mild 03/29/2018 None Hospital Follow Up Significant Medical Conditions acute illness 03/29/2018 chest pain back pain Location lumbar-sacral spine 03/11/2018 None [...] data Encounters Encounter Performer Location Codes Date ([id number]) [id number] EST. PATIENT, LEVEL III Diagnosis: Pain in left shoulder[ICD10: M25.512] Diagnosis: Other chest pain[ICD10: R07.89] [facility] CPT-4: 73971 03/29/2018 ([id number]) PREV VISIT EST AGE 40-64 Diagnosis: Encounter for general adult medical examination with abnormal findings[ICD10: Z00.01] [facility] CPT-4: 99120 03/11/2018 ([id number]) 71755 EST. PATIENT, LEVEL III Diagnosis: Low back pain[ICD10: M54.5] Diagnosis: Generalized anxiety disorder[ICD10: F41.1] [facility], [facility] CPT-4: 27309 01/07/2017 [id number] EST. PATIENT, LEVEL III Diagnosis: Other chest pain[ICD10: R07.89] Diagnosis: Pleurodynia[ICD10: R07.81] [facility] MD, [facility] CPT-4 : 22407 09/03/2016 ([id number]) 30607 EST. PATIENT, LEVEL III Diagnosis: Low back pain[ICD10: M54.5] Diagnosis: Other intervertebral disc displacement, lumbar region[ICD10: M51.26] [facility], [facility] CPT-4: 63686 11/12/2015 ([id number]) OFFICE VISIT, NEW - LEVEL 4 Diagnosis: Low back pain[ICD10: M54.5] Diagnosis: Other muscle spasm[ICD10: M62.838] Diagnosis: Localized enlarged lymph nodes[ICD10: R59.0] Diagnosis: Other insomnia[ICD10: G47.09] [facility], [facility] CPT-4 : 72198 11/01/2015 Plan of Care Planned Activity Notes Codes Status Date Visit Plan: Left shoulder pain -chronic -patient has had multiple surgeries -not interested in PT at this time-recommend anti inflammatories as directed- rest -discussed PT vs imaging if symptoms persist. Patient verbalized understanding Chest pain -cardiac work up negative including cath -patient to see data steward tomorrow-suspect pain is radiating from shoulder-continue to monitor 03/29/2018 Patient Education: Patient Medication Summary Completed 03/29/2018 Referral: Melita Mendez Referral Completed 03/21/2018 Visit Plan: Well Adult - pt was [...] -recommend low fat diet -regular exercise 03/11/2018 [facility] [phone] [phone] [place] (30 min) Complex 03/11/2018 Patient Education: Patient Medication Summary Completed 03/11/2018 Care Plan: Referral Order SNOMED-CT : [id number] Pending 03/11/2018 Visit Plan: Chronic back pain-follow [...] above medications. 01/07/2017 [facility] [phone] [phone] ([facility] min) Complex 01/07/2017 Patient Education: Patient Medication Summary Completed 01/07/2017 Visit Plan: Right rib pain - will give order for x-ray - The pt is to use prn antiinflammatories to manage acute pain. The patient is to call the office if the pain is worsening or does not improve. 09/03/2016 [facility] [phone] [phone] ([facility] min) Complex 09/03/2016 Patient Education: Patient [...] 7 days 11/12/2015 [facility] [phone] [phone] [place] (15 min) Moderate 11/12/2015 Patient Education: Patient Medication Summary Completed 11/12/2015 Patient Education: Obesity Completed 11/12/2015 Care Plan: Referral Order SNOMED-CT : [id number] Pending 11/12/2015 Visit Plan: Insomnia - Pt [...] pain is worsening or does not improve. . Left shoulder pain -chronic -patient has had multiple surgeries -not interested in PT at this time-recommend anti inflammatories as directed- rest -discussed PT vs imaging if symptoms persist. Patient verbalized understanding Chest pain -cardiac work up negative including cath -patient to see data steward tomorrow-suspect pain is radiating from shoulder-continue to monitor Melatonin over the counter. Insomnia - Pt [...]
--- OUTSIDE RECORDS SUMMARY | 2018-04-18 12:19 | XMS REPORT | CCD ---
Author Author Noemi Mercado Organization [facility] Address [address] [place] [address] Phone Care Team Providers Care Insurance Appraiser Name Role Phone PP Unavailable CCM Unavailable Summary Purpose Interface Exchange Insurance Providers Payer name Policy type / Coverage type Covered democrat ID Effective Begin Date Effective End Date Blue Cross Blue Shield [facility] Blue Cross/Blue Shield [id number] Unknown Unknown Family history Mother Diagnosis Age At Onset Alcoholism Unknown Father Diagnosis Age At Onset Arthritis Unknown Skin cancer Unknown Alcoholism Unknown Brother Diagnosis Age At Onset Alcoholism Unknown Sister Diagnosis Age At Onset Alcoholism Unknown Social History Social History Element Codes Description Effective Dates Marital status Unknown 11/01/2015 Employment Unknown Currently employed [employer] 11/01/[address]: 295516955 Never smoker 11/01/[address]: 559558574 Never drinks alcohol 11/01/2015 Allergies, Adverse Reactions, [...] Fill Instructions ibuprofen 800 mg tablet RxNorm: 889325 1 Tablet(s) PO TID as needed 03/29/2018 04/07/2018 Active tramadol 50 mg tablet RxNorm: 145307 1-2 Tablet(s) PO Q6 PRN 01/2018 No Stop Date Active Lexapro 10 mg tablet RxNorm: 862846 1 Tablet(s) PO QPM 201603/10/2018 Inactive cyclobenzaprine 5 mg tablet RxNorm: 040614 1/2 - 1 Tablet(s) PO TID as needed muscle spasms 11/01/2015 11/05/2015 Inactive prednisone 20 mg tablet RxNorm: 468485 2 Tablet(s) PO daily 05/201511/05/2015 Inactive Toprol XL 50 mg tablet,extended release RxNorm: 005853 1 Tablet(s) PO daily No Start Date Active Aspirin Low Dose 81 mg tablet,delayed release RxNorm: 647775 1 Tablet(s) PO daily No Start Date Active ibuprofen 800 mg tablet RxNorm: 630210 1 Tablet(s) PO as needed No Start Date 03/28/2018 Inactive oxycodone-acetaminophen 5 mg-325 mg tablet RxNorm: 3155850 Tablet(s) PO as needed No Start Date 03/28/2018 Inactive Cymbalta 20 mg capsule,delayed release RxNorm: 016910 1 Capsule(s) PO daily No Start Date 01/06/2017 Inactive oxycodone-acetaminophen 5 mg-325 mg tablet RxNorm: 7359192 Tablet(s) PO as needed No Start Date [...] 29.3 pg 04/01/2016 Cbc With Differential Ord2 [place]% 10.3 % 04/01/2016 Cbc With Differential Ord2 [...] 2.58 K/ul 04/01/2016 Cbc With Differential Ord2 [place] ABS# 0.7 K/ul 04/01/2016 Cbc With Differential Ord2 Eos ABS# 0.2 K/ul 04/01/2016 Cbc With Differential Ord2 Baso ABS# 0.0 K/ul 04/01/2016 Tsh Ord6 hTSH II 2.06 uIU/mL 04/01/2016 Comp Metabolic Yig991 NA 140 mEq/L 04/01/2016 Comp Metabolic Jqv552 K 4.7 mEq/L 04/01/2016 Comp Metabolic Sdx912 CL 105 mEq/L 04/01/2016 Comp Metabolic Vyv980 CO2 29.0 mEq/L 04/01/2016 Comp Metabolic Kyl365 ANION GAP 11 04/01/2016 Comp Metabolic Wbq841 GLUCOSE 99 mg/dL 04/01/2016 Comp Metabolic Wig829 Creat 1.1 mg/dL 04/01/2016 Comp Metabolic Ecw014 eGFR 76 ml/min/1.73m2 04/01/2016 Comp Metabolic Jph684 BUN 17 mg/dL 04/01/2016 Comp Metabolic Snj969 B/C Ratio 15.3 Ratio 04/01/2016 Comp Metabolic Min555 CALCIUM 9.5 mg/dL 04/01/2016 Comp Metabolic Dgi352 ALK PHOS 73 U/L 04/01/2016 Comp Metabolic Kie727 AST(SGOT) 35 U/L 04/01/2016 Comp Metabolic Rmb591 ALT(SGPT) 74 U/L 04/01/2016 Comp Metabolic Siw536 BILI T 0.6 mg/dL 04/01/2016 Comp Metabolic Zlo255 ALBUMIN 4.3 g/dL 04/01/2016 Comp Metabolic Apr694 TPRO 6.5 g/dL 04/01/2016 Comp Metabolic Tfk347 GLOB 2.2 g/dL 04/01/2016 Comp Metabolic Eyw585 A/G Ratio 1.9 Ratio 04/01/2016 Comp Metabolic Fit401 Osmo 281 mOsmo 04/01/2016 Review of Systems [...] Code : 8480-6 BMI: 29.7 Code : 69368-6 Heart Rate 1 : 67 bpm Height: 6' SpO2: 97% Weight: 219 lbs 03/11/2018 Blood Pressure 1: 138/90 Code : 8480-6 BMI: 28.8 Code : 11908-3 Heart Rate 1 : 68 bpm Height: 6' SpO2: 92% Weight: 212 lbs 01/07/2017 Blood Pressure 1: 134/82 Code : 8480-6 BMI: 29.3 Code : 40010-2 Heart Rate 1 : 78 bpm Height: 6' SpO2: 98% Weight: 216 lbs 09/03/2016 Blood Pressure 1: 145/88 Code : 8480-6 BMI: 29.0 Code : 28186-1 Heart Rate 1 : 84 bpm Height: 6' SpO2: 97% Weight: 214 lbs 11/12/2015 Blood Pressure 1: 133/88 Code : 8480-6 BMI: 28.1 Code : 71104-0 Heart Rate 1 : 67 bpm Height: 6' SpO2: 97% Weight: 207 lbs 11/01/2015 Blood Pressure 1: 150/90 Code : 8480-6 Blood Pressure 1: 138/78 Code: 8480-6 BMI: 27.5 Code: 49842-6 Heart Rate 1: 73 bpm Height: 6' [...] data Encounters Encounter Performer Location Codes Date ([id number]) 79055 EST. PATIENT, LEVEL III Diagnosis: Pain in left shoulder[ICD10: M25.512] Diagnosis: Other chest pain[ICD10: R07.89] [facility] CPT-4: 40372 03/29/2018 ([id number]) PREV VISIT EST AGE 40-64 Diagnosis: Encounter for general adult medical examination with abnormal findings[ICD10: Z00.01] [facility] CPT-4: 26541 03/11/2018 ([id number]) 22949 EST. PATIENT, LEVEL III Diagnosis: Low back pain[ICD10: M54.5] Diagnosis: Generalized anxiety disorder[ICD10: F41.1] [facility] MD, [facility] CPT-4: 81508 01/07/2017 39041 EST. PATIENT, LEVEL III Diagnosis: Other chest pain[ICD10: R07.89] Diagnosis: Pleurodynia[ICD10: R07.81] Noemi Goldman MD, [facility] CPT-4 : 82421 09/03/2016 ([id number]) 66747 EST. PATIENT, LEVEL III Diagnosis: Low back pain[ICD10: M54.5] Diagnosis: Other intervertebral disc displacement, lumbar region[ICD10: M51.26] [facility], [facility] CPT-4: 70267 11/12/2015 ([id number]) OFFICE VISIT, NEW - LEVEL 4 Diagnosis: Low back pain[ICD10: M54.5] Diagnosis: Other muscle spasm[ICD10: M62.838] Diagnosis: Localized enlarged lymph nodes[ICD10: R59.0] Diagnosis: Other insomnia[ICD10: G47.09] [facility] MD, [facility] CPT-4 : 60277 11/01/2015 Plan of Care Planned Activity Notes Codes Status Date Visit Plan: Left shoulder pain -chronic -patient has had multiple surgeries -not interested in PT at this time-recommend anti inflammatories as directed- rest -discussed PT vs imaging if symptoms persist. Patient verbalized understanding Chest pain -cardiac work up negative including cath -patient to see anode builder tomorrow-suspect pain is radiating from shoulder-continue to [...] exercise 03/11/2018 [facility]ment[facility] [phone] [phone] [place] ([facility] min) Complex 03/11/2018 Patient Education: Patient Medication Summary Completed 03/11/2018 Care Plan: Referral Order SNOMED-CT : 586394067 Pending 03/11/2018 Visit Plan: Chronic back pain-follow [...] medications. 01/07/2017 App[facility]ment: [facility] [phone] [phone] ([facility] min) Complex 01/07/2017 Patient Education: Patient Medication Summary Completed 01/07/2017 Visit Plan: Right rib pain - will give order for x-ray - The pt is to use prn antiinflammatories to manage acute pain. The patient is to call the office if the pain is worsening or does not improve. 09/03/2016 App[facility]ment: [facility] [phone] [phone] ([facility]) Complex 09/03/2016 Patient Education: Patient [...] days 11/12/2015 [facility] [phone] [phone] [place] (15 min) Moderate 11/12/2015 Patient Education: Patient Medication Summary Completed 11/12/2015 Patient Education: Obesity Completed 11/12/2015 Care Plan: Referral Order SNOMED-CT : 358366412 Pending 11/12/2015 Visit Plan: Insomnia - Pt [...] up negative including cath -patient to see anode builder tomorrow-suspect pain is radiating from shoulder-continue to [...]
--- OUTSIDE RECORDS SUMMARY | 2018-04-18 12:20 | XMS REPORT | Continuity of Care Document ---
Author Author [facility] Organization [facility] Address Unknown Phone Unavailable Allergies Active Description Code Type Severity Reaction Onset Reported/Identified Relationship to Patient Clinical Status Yes NKANo Known Allergies NKA Miscellaneous Allergy Unknown N/A 03/28/2018 Yes No Known Drug Allergies [id number] Drug Allergy Unknown N/A 04/12/2018 Medications There is no data. 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 02/12/2012 Ot 550.91 RECUR UNILAT INGUIN DAVID 02/12/2012 Ot V04.81 ND FOR PROPHYLACTIC VACCIN AND INOCULATI 04/29/2012 Ot 465.9 ACUTE URI NOS 04/29/2012 Ot 786.50 CHEST PAIN NOS 04/29/2012 Ot 786.52 PAINFUL RESPIRATION 03/14/2013 GUCCI RIVERA, HENRRY Rodas Ot 592.1 CALCULUS OF URETER 03/14/2013 HENRRY [...] 789.04 ABDOMINAL PAIN, LEFT LOWER QUADRANT 08/12/2017 TRISHA SHIRLEY MD Ot 592.9 URINARY CALCULUS NOS 08/12/2017 NEVILLE RIVERA, ANDREW Hodge Ot 723.4 BRACHIAL NEURITIS NOS 08/12/2017 NEVILLE RIVERA, ANDREW Hodge Ot 723.4 BRACHIAL NEURITIS NOS 08/12/2017 NEVILLE RIVERA, ANDREW P Ot M54.16 RADICULOPATHY, LUMBAR REGION 08/12/2017 MYA THAYER APRN Ot R07.81 PLEURODYNIA 08/12/2017 CATHY HORNE DOI Ot R07.9 CHEST PAIN, UNSPECIFIED 08/12/2017 Ot 789.04 ABDOMINAL PAIN, LEFT LOWER QUADRANT 08/12/2017 FERN RIVERA, TRISHA Rodas Ot 592.9 URINARY CALCULUS NOS 08/12/2017 NEVILLE RIVERA, ANDREW P Ot 723.4 BRACHIAL NEURITIS NOS 08/12/2017 NEVILLE RIVERA, ANDREW P Ot 723.4 BRACHIAL NEURITIS NOS 08/12/2017 NEVILLE RIVERA, ANDREW P Ot M54.16 RADICULOPATHY, LUMBAR REGION 08/12/2017 MYA THAYER APRN Ot R07.81 PLEURODYNIA 08/12/2017 CATHY HORNE DOI Ot R07.9 CHEST PAIN, UNSPECIFIED 08/12/2017 Ot 789.04 ABDOMINAL PAIN, LEFT LOWER QUADRANT 08/12/2017 FERN RIVERA, TRISHA A Ot 592.9 URINARY CALCULUS NOS 08/12/2017 NEVILLE RIVERA, ANDREW P Ot 723.4 BRACHIAL NEURITIS NOS 08/12/2017 NEVILLE RIVERA, ANDREW P Ot 723.4 BRACHIAL NEURITIS NOS 08/12/2017 NEVILLE RIVERA, ANDREW P Ot M54.16 RADICULOPATHY, LUMBAR REGION 08/12/2017 MYA THAYER ART COORDINATOR Ot R07.81 PLEURODYNIA 08/12/2017 COLEEN REDDY ROMULO Ot R07.9 CHEST PAIN, UNSPECIFIED 08/12/2017 Ot 789.04 ABDOMINAL PAIN, LEFT LOWER QUADRANT 08/12/2017 FERN RIVERA, TRISHA A Ot 592.9 URINARY CALCULUS NOS 08/12/2017 NEVILLE RIVERA, ANDREW P Ot 723.4 BRACHIAL NEURITIS NOS 08/12/2017 NEVILLE RIVERA, ANDREW P Ot 723.4 BRACHIAL NEURITIS NOS 08/12/2017 NEVILLE RIVERA, ANDREW P Ot M54.16 RADICULOPATHY, LUMBAR REGION 08/12/2017 MYA THAYER APRN Ot R07.81 PLEURODYNIA 08/12/2017 HORNE DO, ROMULO Ot R07.9 CHEST PAIN, UNSPECIFIED 01/11/2018 FERN RIVERA, TRISHA A Ot 592.9 URINARY CALCULUS NOS 01/11/2018 NEVILLE RIVERA, ANDREW Hodge Ot 723.4 BRACHIAL NEURITIS NOS 01/11/2018 ANDREW LOZADA MD Ot 723.4 BRACHIAL NEURITIS NOS 01/11/2018 NEVILLE RIVERA, ANDREW Hodge Ot M54.16 RADICULOPATHY, LUMBAR REGION 01/11/2018 MYA THAYER APRN Ot R07.81 PLEURODYNIA 01/11/2018 COLEEN REDDY ROMULO Ot R07.9 CHEST PAIN, UNSPECIFIED 03/22/2018 ANGEL RIVERA FACC, ALI FACP CCDS Ot R06.02 SHORTNESS OF BREATH 03/22/2018 ANGEL RIVERA FACC, ALI FACP CCDS Ot R07.89 OTHER CHEST PAIN 03/22/2018 ANGEL RIVERA FACC, ALI FACP CCDS Ot Z87.891 PERSONAL HISTORY OF NICOTINE DEPENDENCE 03/23/2018 ANGEL RIVERA FACC, ALI FACP CCDS Ot R06.02 SHORTNESS OF BREATH 03/23/2018 ANGEL RIVERA FACC, ALI FACP CCDS Ot R07.89 OTHER CHEST PAIN 03/23/2018 ANGEL RIVERA FACC, ALI FACP CCDS Ot Z87.891 PERSONAL HISTORY OF NICOTINE DEPENDENCE 03/27/2018 DERIK WARD MD Ot G43.909 MIGRAINE, UNSP, NOT INTRACTABLE, WITHOUT 03/27/2018 DERIK WARD MD Ot R07.89 OTHER CHEST PAIN 03/27/2018 DERIK WARD MD Ot 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 Results Test Result Range Automated blood complete blood count (hemogram) panel - 03/22/18 10:09 Blood leukocytes automated count (number/volume) 5.9 10*3/uL 4.3-11.0 Blood erythrocytes automated count (number/volume) 5.77 10*6/uL 4.35-5.85 Venous blood hemoglobin measurement (mass/volume) 16.6 g/dL 13.3-17.7 Blood hematocrit (volume fraction) 49 % 40-54 Automated erythrocyte mean corpuscular volume 85 [foz_us] 80-99 Automated erythrocyte mean corpuscular hemoglobin (mass per erythrocyte) 29 pg 25-34 Automated erythrocyte mean corpuscular hemoglobin concentration measurement ( mass/volume) 34 g/dL 32-36 Automated erythrocyte distribution width ratio 12.5 % 10.0-14.5 Automated blood platelet count (count/volume) 271 10*3/uL 130-400 Automated blood platelet mean volume measurement 10.8 [foz_us] 7.4-10.4 PT panel in platelet poor plasma by coagulation assay - 03/22/18 10:09 Prothrombin time (PT) in platelet poor plasma by coagulation assay 12.6 s 12.2-14.7 INR in platelet poor plasma or blood by coagulation assay 1.0 0.8-1.4 Activated partial thromboplastin time (aPTT) in platelet poor plasma bycoagulation assay - 03/22/18 10:09 Activated partial thromboplastin time (aPTT) in platelet poor plasma bycoagulation assay 28 s 24-35 Comprehensive metabolic panel - 03/22/18 10:09 Serum or plasma sodium measurement (moles/volume) 140 mmol/L 135-145 Serum or plasma potassium measurement (moles/volume) 4.3 mmol/L 3.6-5.0 Serum or plasma chloride measurement (moles/volume) 105 mmol/L 98-107 Carbon dioxide 27 mmol/L 21-32 Serum or plasma anion gap determination (moles/volume) 8 mmol/L 5-14 Serum or plasma urea nitrogen measurement (mass/volume) 11 mg/dL 7-18 Serum or plasma creatinine measurement (mass/volume) 1.10 mg/dL 0.60-1.30 Serum or plasma urea nitrogen/creatinine mass ratio 10 NRG Serum or plasma creatinine measurement with calculation of estimated glomerular filtration rate > NRG Serum or plasma glucose measurement (mass/volume) 96 mg/dL 70-105 Serum or plasma calcium measurement (mass/volume) 9.6 mg/dL 8.5-10.1 Serum or plasma total bilirubin measurement (mass/volume) 1.1 mg/dL 0.1-1.0 Serum or plasma alkaline phosphatase measurement (enzymatic activity/volume) 81 U/L 40-136 Serum or plasma aspartate aminotransferase measurement (enzymatic activity/ volume) 30 U/L 5-34 Serum or plasma alanine aminotransferase measurement (enzymatic activity/volume ) 46 U/L 0-55 Serum or plasma protein measurement (mass/volume) 7.4 g/dL 6.4-8.2 Serum or plasma albumin measurement (mass/volume) 4.7 g/dL 3.2-4.5 Lipid 1996 panel - 03/22/18 10:09 Serum or plasma triglyceride measurement (mass/volume) 82 mg/dL <150 Serum or plasma cholesterol measurement (mass/volume) 199 mg/dL < 200 Serum or plasma cholesterol in HDL measurement (mass/volume) 51 mg/ dL 40-60 Cholesterol in LDL [mass/volume] in serum or plasma by direct assay 141 mg/dL 1-129 Serum or plasma cholesterol in VLDL measurement (mass/volume) 16 mg/ dL 5-40 Methicillin resistant Staphylococcus aureus (MRSA) screening culture - 10:09 Methicillin resistant Staphylococcus aureus (MRSA) screening culture NEG NRG Complete blood count (CBC) with automated white blood cell (WBC) differential - 03/27/18 20:27 Blood leukocytes automated count (number/volume) 7.0 10*3/uL 4.3-11.0 Blood erythrocytes automated count (number/volume) 5.06 10*6/uL 4.35-5.85 Venous blood hemoglobin measurement (mass/volume) 14.7 g/dL 13.3-17.7 Blood hematocrit (volume fraction) 43 % 40-54 Automated erythrocyte mean corpuscular volume 85 [foz_us] 80-99 Automated erythrocyte mean corpuscular hemoglobin (mass per erythrocyte) 29 pg 25-34 Automated erythrocyte mean corpuscular hemoglobin concentration measurement ( mass/volume) 34 g/dL 32-36 Automated erythrocyte distribution width ratio 12.5 % 10.0-14.5 Automated blood platelet count (count/volume) 269 10*3/uL 130-400 Automated blood platelet mean volume measurement 10.8 [foz_us] 7.4-10.4 Automated blood neutrophils/100 leukocytes 49 % 42-75 Automated blood lymphocytes/100 leukocytes 40 % 12-44 Blood monocytes/100 leukocytes 8 % 0-12 Automated blood eosinophils/100 leukocytes 3 % 0-10 Automated blood basophils/100 leukocytes 1 % 0-10 Blood neutrophils automated count (number/volume) 3.4 10*3 1.8-7.8 Blood lymphocytes automated count (number/volume) 2.8 10*3 1.0-4.0 Blood monocytes automated count (number/volume) 0.6 10*3 0.0-1.0 Automated eosinophil count 0.2 10*3/uL 0.0-0.3 Automated blood basophil count (count/volume) 0.0 10*3/uL 0.0-0.1 Comprehensive metabolic panel - 03/27/18 20:27 Serum or plasma sodium measurement (moles/volume) 139 mmol/L 135-145 Serum or plasma potassium measurement (moles/volume) 5.0 mmol/L 3.6-5.0 Serum or plasma chloride measurement (moles/volume) 106 mmol/L 98-107 Carbon dioxide 21 mmol/L 21-32 Serum or plasma anion gap determination (moles/volume) 12 mmol/L 5-14 Serum or plasma urea nitrogen measurement (mass/volume) 20 mg/dL 7-18 Serum or plasma creatinine measurement (mass/volume) 1.23 mg/dL 0.60-1.30 Serum or plasma urea nitrogen/creatinine mass ratio 16 NRG Serum or plasma creatinine measurement with calculation of estimated glomerular filtration rate > NRG Serum or plasma glucose measurement (mass/volume) 129 mg/dL 70-105 Serum or plasma calcium measurement (mass/volume) 9.2 mg/dL 8.5-10.1 Serum or plasma total bilirubin measurement (mass/volume) 0.5 mg/dL 0.1-1.0 Serum or plasma alkaline phosphatase measurement (enzymatic activity/volume) 91 U/L 40-136 Serum or plasma aspartate aminotransferase measurement (enzymatic activity/ volume) 54 U/L 5-34 Serum or plasma alanine aminotransferase measurement (enzymatic activity/volume ) 108 U/L 0-55 Serum or plasma protein measurement (mass/volume) 7.1 g/dL 6.4-8.2 Serum or plasma albumin measurement (mass/volume) 4.1 g/dL 3.2-4.5 CALCIUM CORRECTED 9.1 mg/dL 8.5-10.1 Magnesium - 03/27/18 20:27 Magnesium 2.6 mg/dL 1.8-2.4 Serum or plasma troponin i.cardiac measurement (mass/volume) - 03/27/18 20:27 Serum or plasma troponin i.cardiac measurement (mass/volume) < ng/ mL <0.30 Serum or plasma lithium measurement (moles/volume) - 03/27/18 20:27 BNP level < pg/mL <100.0 Myoglobin, serum - 03/27/18 20:27 Myoglobin, serum 53.8 ng/mL 10.0-92.0 Encounters ACCT No. Visit Date/Time Discharge Status Pt. Type Provider Facility Loc./Unit Complaint [id number] 04/12/2018 08:23:00 04/12/2018 14:29:00 DIS Outpatient SRAVAN MAGDALENO MD [facility] PREOP EGD [id number] 04/06/2018 16:53:00 04/06/2018 23:59:59 CLS Outpatient TANVIR ORTIZ MD, FACC, FACP CCDS [facility] RAD CHEST DISCOMFORT,SOB,HYPERTENSION [id number] 03/30/2018 14:23:00 03/30/2018 23:59:59 CLS Preadmit TANVIR ORTIZ MD, FACC, FACP CCDS [facility] CARD CHEST DISCOMFORT,SOB,HYPERTENSION [id number] 03/27/2018 20:08:00 03/27/2018 21:48:00 DIS Emergency DERIK WARD MD [facility] ER HAD HEART CATH TUES AND HAVING CHEST PAIN [id number] 03/22/2018 09:46:00 03/22/2018 16:40:00 DIS Outpatient ANGEL RIVERA FACAnita, TANVIR CALHOUN CCDS [facility] CATH ANGINA,SOB, DIZZINESS,PALIPITATIONS [id number] 04/09/2017 06:41:00 04/09/2017 23:59:59 CLS Outpatient ROMULO HORNE DO [facility] CARD CHEST PAIN [id number] 09/04/2016 08:22:00 09/04/2016 23:59:59 CLS Outpatient MYA THAYER APRN [facility] RAD RIB/CHEST PAIN [id number] 06/18/2015 11:57:00 06/18/2015 23:59:59 CLS Outpatient ANDREW LOZADA MD [facility] RAD LUMBAR RADICULOPATHY [id number] 10/20/2014 13:42:00 10/20/2014 15:27:00 DIS Emergency LEENA SEYMOUR MD [facility] ER ABD AND LOWER BACK PAIN [id number] 04/09/2014 16:06:00 04/09/2014 23:59:59 CLS Outpatient ANDREW LOZADA MD [facility] RAD L C5 RADICULOPATHY [id number] 02/28/2014 10:52:00 02/28/2014 23:59:59 CLS Outpatient ANDREW LOZADA MD [facility] RAD L C5 RADICULAPATHY [id number] 03/27/2013 13:47:00 03/27/2013 23:59:59 CLS Outpatient TRISHA SHIRLEY MD [facility] LAB STONE [id number] 03/21/2013 05:54:00 03/21/2013 10:15:00 DIS Outpatient TRISHA SHIRLEY MD [facility] SDC LEFT STONE [id number] 03/13/2013 22:51:00 03/14/2013 00:29:00 DIS Emergency GUCCI RIVERA, HENRRY Rodas [facility] ER KIDNEY STONES [id number] 10/06/2018 10:15:00 PEN Preadmit SHERLY AGUILAR APRN [facility] RAD ABN CT SCAN OF LUNG,SOB,LUNG NODULE [id number] 05/11/2018 09:45:00 PEN Preadmit SHERLY AGUILAR APRN [facility] RT SUSPECTED SLEEP APNEA,SOB,LUNG NODULE [id number] 04/18/2018 14:15:00 PEN Preadmit SHARLA RIVERA, SRAVAN Larsen [facility] ENDO DYSPHAGIA/EPIGASTRIC PAIN [id number] 04/29/2012 12:01:00 Document Registration [id number] 04/13/2012 08:42:00 Document Registration [id number] 02/11/2012 05:32:00 Document Registration [id number] 02/08/2012 12:04:00 Document Registration [id number] 03/08/2014 15:08:08 03/08/2014 15:08:09 DIS Outpatient [id number] 03/11/2017 09:56:11 03/11/2017 23:59:59 CLS Outpatient
[2018-04-18] MEDS ORDERED: NS IV 500 ML 500 ML ONE (12:22)
[2018-04-18 12:30] VITALS: BP 130/84
[2018-04-18] MEDS ORDERED: NS IV 500 ML 500 ML IV PRN (12:35)
[2018-04-18] MEDS ORDERED: HURRICAINE EXT TUBE (BENZOCAINE) XX PRN (12:45)
[2018-04-18] MEDS ORDERED: fentaNYL INJECTION 100 MCG/2 ML AMP IVP ONE (12:45)
[2018-04-18] MEDS ORDERED: MIDAZOLAM 2 MG/2 ML (VERSED) VIAL IVP ONE (12:45)
--- NOTE | 2018-04-18 13:20 | Conscious Sedation/ASA ---
Conscious Sedation Pre-Proced Time 13:20 ASA Score 1 For ASA 3 and 4: Consider anesthesia and medical clearance. Also, for patients with a history of failed moderate sedation consider anesthesia. Airway Lungs Heart ASA score ASA 1: a normal healthy patient ASA 2: a patient with a mild systemic disease (mid diabetes, controlled hypertension, obesity ASA 3: a patient with a severe systemic disease that limits activity (angina , COPD, prior Myocardial infarction) ASA 4: a patient with an incapacitating disease that is a constant threat to life (CHF, renal failure) ASA 5: a moribund patient not expected to survive 24 hrs. (ruptured aneurysm) ASA 6: a declared brain patient whose organs are being harvested. For emergent operations, add the letter E after the classification Mallampati Classification Grade 1 Sedation Plan Discussed options with patient/fam The patient is an appropriate candidate to undergo the planned procedure, sedation, and anesthesia. The patient immediately re-assessed prior to indication. SRAVAN MAGDALENO MD Apr 18, 2018 13:20
--- NOTE | 2018-04-18 13:20 | History & Physicial ---
History of Present Illness History of Present Illness Reason for visit/HPI to undergo an upper endoscopy regarding substernal discomfort. Cardiac evaluation negative Date of Admission 04/18/18 Date Seen by a Provider: Apr 18, 2018 Time Seen by a Provider: 13:19 I consulted on this patient on 04/18/18 13:19 Attending Physician Sravan Vasquez MD Admitting Physician Irma Goldman MD Consult Allergies and Home Medications Allergies Coded Allergies: No Known Drug Allergies (Unverified , 04/12/18) Home Medications No Active Prescriptions or Reported Meds Patient Home Medication List Home Medication List Reviewed: Yes Past Fghoszb-Tdxaca-Yjhlah Hx Patient Social History Marrital Status: Employed/Student: employed Alcohol Use: Denies Use Recreational Drug Use: No Smoking Status: Never a Smoker Recent Foreign Travel: No Contact w/other who traveled: No Recent Hopitalizations: Yes Recent Infectious Disease Expo: No Immunizations Up To Date Tetanus Booster (TDap): Unknown Date of Pneumonia Vaccine: Mar 21, 2008 Date of Influenza Vaccine: Mar 03, 2012 Seasonal Allergies Seasonal Allergies: Yes Surgeries Yes (hernia repair, CYSTO, L URETEROSCOPY, LITHOTRIPSY, LEFT COLLAR BONE) Gallbladder, Tonsillectomy Respiratory No Cardiovascular No Neurological Yes Headaches /Migraines Reproductive System Hx Reproductive Disorders: No Sexually Transmitted Disease: No HIV/AIDS: No Genitourinary Yes Kidney Stones Gastrointestinal No Musculoskeletal Yes Chronic Back Pain Endocrine History of Endocrine Disorders: No HEENT History of HEENT Disorders: No Loss of Vision: Denies Hearing Impairment: Denies Cancer No Psychosocial History of Psychiatric Problem: No Integumentary History of Skin or Integumenta: No Blood Transfusions History of Blood Disorders: No Adverse Reaction to a Blood Tr: No (N/A) Review of Systems Constitutional: no symptoms reported EENTM: no symptoms reported Respiratory: no symptoms reported Cardiovascular: no symptoms reported Gastrointestinal: see HPI Genitourinary: no symptoms reported Musculoskeletal: no symptoms reported Skin: no symptoms reported Psychiatric/Neurological: No Symptoms Reported Physical Exam Vital Signs Vital Signs - First Documented 04/18/18 12:30 Temp 98.3 Pulse 63 Resp 18 B/P (MAP) 130/84 (99) Pulse Ox 96 O2 Delivery Room Air Capillary Refill : Height, Weight, BMI Height: 6'0.00" Weight: 215lbs. 0.0oz. [id number]; 29.2 BMI Method:Stated General Appearance: No Apparent Distress Respiratory: Lungs Clear Cardiovascular: Regular Rate, Rhythm Gastrointestinal: Non Tender, Soft Extremity: Normal Inspection Neurologic/Psychiatric: Alert, Oriented x3 Skin: Warm/Dry Assessment/Plan Assessment and Plan gentleman with substernal discomfort. For upper endoscopy Admission Diagnosis Admission Status: Other (Outpt Proc) SRAVAN VASQUEZ MD Apr 18, 2018 13:20
[2018-04-18] MEDS ORDERED: HURRICAINE EXT TUBE (BENZOCAINE) ONE (14:02)
[2018-04-18] MEDS ORDERED: MIDAZOLAM 2 MG/2 ML (VERSED) VIAL ONE ×4 (14:02)
[2018-04-18] MEDS ORDERED: fentaNYL INJECTION 100 MCG/2 ML AMP ONE (14:02)
--- NOTE | 2018-04-18 14:25 | Endo Procedure Record ---
Endo Procedure Report Date of Procedure Last Colonoscopy: No Apr 18, 2018 Surgeon (s) SRAVAN MAGDALENO MD Post Procedure/Op Diagnosis grade 1 esophagitis Antral and duodenal erosions Procedure Performed EGD with antral biopsy for H. pylori Description of Procedure Anesthesia Type: Conscious Sedation Specimen(s) collected/removed antral mucosa Description of the Procedure Indication for the procedure: This gentleman came in for an upper endoscopy to evaluate substernal pain. Cardiac evaluation including catheterization turned out to be negative. Informed consent was obtained after reviewing the procedure in detail. Description of the procedure: He was placed in left lateral decubitus position and his vital signs were monitored. Conscious sedation was achieved using Versed and fentanyl. The flexible gastroscope was introduced down the esophagus , past the stomach, into the proximal duodenum. Findings: Esophagus: Grade 1 esophagitis. Stomach: A few, shallow erosions were found at the antrum. Biopsy for H. pylori was obtained. Duodenum: A total of 2 shallow erosions were found along the first part. There was no edgar ulceration. He tolerated the procedure well and was taken back to the nursing area in a stable condition. Impression: Substernal pain. Mild esophagitis. Gastric and duodenal erosions. Helicobacter status pending. Copy Copies To 1: THELMA EGAN MD, XAVIER M MD Apr 18, 2018 14:25
--- NOTE | 2018-04-18 14:26 | Discharge Inst-Simple/Standard ---
Discharge Inst-Standard Discharge Medications New, Converted or Re-Newed RX: Other Patient Instructions/Follow Up Plan of Care/Instructions/FU: please call for Protonix 40 daily for 30 days with 2 refills. Follow-up with his primary. To avoid nonsteroidals Activity as Tolerated: Yes Discharge Diet: No Restrictions SRAVAN MAGDALENO MD Apr 18, 2018 14:26
[2018-04-18 14:45] VITALS: BP 113/66
[2018-04-18 15:15] VITALS: BP 114/82
[2018-04-18 16:23] VITALS: BP 114/82
== END 2018-04-18 16:00 | disposition home or self-care (01) ==
LOC: ENDO 12:13
PROVIDERS: ATTEND Surgery
DX: K20.9 Esophagitis, unspecified (principal); K26.9 Duodenal ulcer, unspecified as acute or chronic, without hemorrhage or perforation; K25.9 Gastric ulcer, unspecified as acute or chronic, without hemorrhage or perforation
CPT/HCPCS: 88305

== ENCOUNTER 2018-04-27 09:00 | Outpatient (CLI) | payer BC | END 2018-04-27 09:15 | disposition home or self-care (01) | LOC: SLEEP 09:00 | PROVIDERS: ATTEND Nurse Practitioner Family | DX: G47.10 Hypersomnia, unspecified (principal); R06.02 Shortness of breath; R91.8 Other nonspecific abnormal finding of lung field; R91.1 Solitary pulmonary nodule ==

== ENCOUNTER → 2018-05-11 | Outpatient (CLI) | payer BC ==
[~2018-05-11] MED LIST changes: +RT-ALBUTEROL SULF 2.5 MG/3 ML PRE-MIX VIAL INH ONE
== END ==
LOC: RT 09:24
PROVIDERS: ATTEND Nurse Practitioner Family
DX: R06.02 Shortness of breath (principal); G47.10 Hypersomnia, unspecified; R91.8 Other nonspecific abnormal finding of lung field; R91.1 Solitary pulmonary nodule
CPT/HCPCS: 94060; 94726; 94729

== ENCOUNTER 2018-09-01 14:50 | Outpatient (CLI) | payer BC ==
[~2018-09-01] VITALS: Ht 182.9 cm; Wt 97.5 kg
[~2018-09-01 14:50] MED LIST changes: -RT-ALBUTEROL SULF 2.5 MG/3 ML PRE-MIX VIAL INH ONE
== END 2018-09-01 15:03 | disposition home or self-care (01) ==
LOC: PREOP 14:50
PROVIDERS: ATTEND Surgery
DX: Z01.818 Encounter for other preprocedural examination (principal)

== ENCOUNTER 2018-09-02 08:42 | Day surgery (SDC) | payer BC ==
[2018-09-02] VITALS (12 sets, daily range): BP systolic 113–137; BP diastolic 61–90
[~2018-09-02] VITALS: Ht 182.9 cm; Wt 97.5 kg
--- OUTSIDE RECORDS SUMMARY | 2018-09-02 08:47 | XMS REPORT | CCD ---
Author Author Noemi Mercado Organization Irma Goldman MD, [facility] Address [address] [place] [address] Phone Care Team Providers Care Outdoor Fitness Trainer Name Role Phone PP Unavailable CCM Unavailable Summary Purpose Interface Exchange Insurance Providers Payer name Policy type / Coverage type Covered alliance party ID Effective Begin Date Effective End Date Blue Cross Blue Shield [facility] Blue Cross/Blue Shield [id number] Unknown Unknown Family history Mother Diagnosis Age At Onset Alcoholism Unknown Father Diagnosis Age At Onset Arthritis Unknown Skin cancer Unknown Alcoholism Unknown Brother Diagnosis Age At Onset Alcoholism Unknown Sister Diagnosis Age At Onset Alcoholism Unknown Social History Social History Element Codes Description Effective Dates Marital status Unknown 11/01/2015 Employment Unknown Currently employed [employer] 11/01/[address]: 360888645 Never smoker 11/01/[address]: 790846734 Never drinks alcohol 11/01/2015 Allergies, Adverse Reactions, Alerts Substance Reaction Codes Entered Date Inactivated Date Status * NO KNOWN DRUG ALLERGIES Unknown 11/01/2015 No Inactive Date Active Past Medical History Illness Codes Condition Status Onset Date Resolved Date Localized enlarged lymph nodes ICD-9: 785.6 ICD-10: R59.0 Active 10/31/2015 Unknown Pain in left shoulder ICD-9: 719.41 ICD-10: M25.512 Active 03/29/2018 Unknown Acute recurrent maxillary sinusitis ICD-9: 461.0 ICD-10: J01.01 Active 05/05/2018 Unknown Cough ICD-9: 786.2 ICD-10: R05 Active 05/05/2018 Unknown Gastro-esophageal reflux disease with esophagitis ICD-9: 530.11 ICD-10: K21.0 Active 04/22/2018 Unknown Other chest pain ICD-9 : 786.59 ICD-10: R07.89 Active 09/03/2016 Unknown Encounter for general adult medical examination with abnormal findings ICD-9: V70.0 ICD-10: Z00.01 Active 03/11/2018 Unknown Generalized anxiety disorder ICD-9: 300.02 ICD-10: F41.1 Active 01/07/2017 Unknown Low back pain ICD-9: 724.2 ICD-10: M54.5 Active 11/11/2015 Unknown Pleurodynia ICD-9: 786.50 ICD-10: R07.81 Active 09/03/2016 Unknown Other intervertebral disc displacement, 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 Active 11/11/2015 Unknown Other insomnia ICD-9: 327.09 ICD-10: G47.09 Active 10/31/2015 Unknown Other muscle spasm ICD -9: 728.85 ICD-10: M62.838 Active 10/31/2015 Unknown Problems Condition Codes Effective Dates Condition Status Localized enlarged lymph nodes ICD-9: 785.6 ICD-10: R59.0 10/31/2015 Active Pain in left shoulder ICD-9: 719.41 ICD-10: M25.512 03/29/2018 Active Acute recurrent maxillary sinusitis ICD-9: 461.0 ICD-10: J01.01 05/05/2018 Active Cough ICD-9: 786.2 ICD-10: R05 05/05/2018 Active Gastro-esophageal reflux disease with esophagitis ICD-9: 530.11 ICD-10: K21.0 04/22/2018 Active Other chest pain ICD-9 : 786.59 ICD-10: R07.89 09/03/2016 Active Encounter for general adult medical examination with abnormal findings ICD-9: V70.0 ICD-10: Z00.01 03/11/2018 Active Generalized anxiety disorder ICD-9: 300.02 ICD-10: F41.1 01/07/2017 Active Low back pain ICD-9: 724.2 ICD-10: M54.5 11/11/2015 Active Pleurodynia ICD-9: 786.50 ICD-10: R07.81 09/03/2016 Active Other intervertebral disc displacement, 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 11/11/2015 Active Other insomnia ICD-9: 327.09 ICD-10: G47.09 10/31/2015 Active Other muscle spasm ICD -9: 728.85 ICD-10: M62.838 10/31/2015 Active Medications Medication Codes Instructions Start Date Stop Date Status Fill Instructions cefdinir 300 mg capsule RxNorm: 680953 1 Capsule(s) PO BID 07/201805/11/2018 Inactive Zithromax Z-Brian 250 mg tablet RxNorm: 265363 1 Tablet(s) PO UD 04/27/2018 04/26/2018 Inactive Zithromax Z-Brian 250 mg tablet RxNorm: 060085 1 Tablet(s) PO UD 04/27/2018 05/01/2018 Inactive Voltaren 1 % topical gel RxNorm: 066148 4 Gram(s) TOP QID 04/2205/21/2018 Inactive Protonix 40 mg tablet,delayed release RxNorm: 092010 1 Tablet(s) PO daily 04/22/2018 08/28/2018 Inactive ibuprofen 800 mg tablet RxNorm: 852438 1 Tablet(s) PO TID as needed 03/29/2018 04/21/2018 Inactive tramadol 50 mg tablet RxNorm: 150320 1-2 Tablet(s) PO Q6 PRN 01/2018 No Stop Date Active Lexapro 10 mg tablet RxNorm: 818226 1 Tablet(s) PO QPM 201603/10/2018 Inactive cyclobenzaprine 5 mg tablet RxNorm: 029900 1/2 - 1 Tablet(s) PO TID as needed muscle spasms 11/01/2015 11/05/2015 Inactive prednisone 20 mg tablet RxNorm: 320087 2 Tablet(s) PO daily 05/201511/05/2015 Inactive ibuprofen 800 mg tablet RxNorm: 877320 1 Tablet(s) PO as needed No Start Date 03/28/2018 Inactive oxycodone-acetaminophen 5 mg-325 mg tablet RxNorm: 5644845 Tablet(s) PO as needed No Start Date 03/28/2018 Inactive Toprol XL 50 mg tablet,extended release RxNorm: 094208 1 Tablet(s) PO daily No Start Date 04/21/2018 Inactive Aspirin Low Dose 81 mg tablet,delayed release RxNorm: 129824 1 Tablet(s) PO daily No Start Date 04/21/2018 Inactive Cymbalta 20 mg capsule,delayed release RxNorm: 146713 1 Capsule(s) PO daily No Start Date 01/06/2017 Inactive oxycodone-acetaminophen 5 mg-325 mg tablet RxNorm: 9345478 Tablet(s) PO as needed No Start Date 11/01/2015 Inactive Medication Administered No Medication Administered data Immunizations No Immunization data Assessments Condition Codes Effective Dates Localized enlarged lymph nodes ICD-10: R59.0 ICD-9: 785.6 08/29/2018 Pain in left shoulder ICD-10: M25.512 ICD-9: 719.41 05/30/2018 Acute recurrent maxillary sinusitis ICD-10: J01.01 ICD-9: 461.0 05/05/2018 Cough ICD-10: R05 ICD-9: 786.2 05/05/2018 Gastro-esophageal reflux disease with esophagitis ICD-10: K21.0 ICD-9: 530.11 04/22/2018 Other chest pain ICD-10: R07.89 ICD-9: 786.59 03/29/2018 Encounter for general adult medical examination with abnormal findings ICD-10: Z00.01 ICD-9: V70.0 03/11/2018 Generalized anxiety disorder ICD-10: F41.1 ICD-9: 300.02 01/07/2017 Low back pain ICD-10: M54.5 ICD-9: 724.2 01/07/2017 Pleurodynia ICD-10: R07.81 ICD-9: 786.50 09/03/2016 Other intervertebral disc displacement, lumbar region ICD-10 : M51.26 ICD-9: 722.10 11/12/2015 Other muscle spasm ICD-10: M62.838 ICD-9: 728.85 11/01/2015 Other insomnia ICD-10: G47.09 ICD-9: 327.09 11/01/2015 Reason For Visit Reason For Visit Effective Dates Notes cyst 08/29/2018 shoulder pain 05/30/2018 cough 05/05/2018 gastroesophageal reflux 04/22/2018 Hospital Follow Up 03/29/2018 well man exam [...] 16.0 g/dl 04/01/2016 Cbc With Differential Ord2 HCT 47.3 % 04/01/2016 Cbc With Differential Ord2 Neut% 48.9 % 04/01/2016 Cbc With Differential Ord2 MCV 86.5 fl 04/01/2016 Cbc With Differential Ord2 Lymph% 37.6 % 04/01/2016 Cbc With Differential Ord2 MCH 29.3 pg 04/01/2016 Cbc With Differential Ord2 Boyle% 10.3 % 04/01/2016 Cbc With Differential Ord2 [...] 2.58 K/ul 04/01/2016 Cbc With Differential Ord2 Boyle ABS# 0.7 K/ul 04/01/2016 Cbc With Differential Ord2 Eos ABS# 0.2 K/ul 04/01/2016 Cbc With Differential Ord2 Baso ABS# 0.0 K/ul 04/01/2016 Tsh Ord6 hTSH II 2.06 uIU/mL 04/01/2016 Comp Metabolic Jcm857 NA 140 mEq/L 04/01/2016 Comp Metabolic Oju987 K 4.7 mEq/L 04/01/2016 Comp Metabolic Shl356 CL 105 mEq/L 04/01/2016 Comp Metabolic Hkv812 CO2 29.0 mEq/L 04/01/2016 Comp Metabolic Mov098 ANION GAP 11 04/01/2016 Comp Metabolic Dkr292 GLUCOSE 99 mg/dL 04/01/2016 Comp Metabolic Jxr872 Creat 1.1 mg/dL 04/01/2016 Comp Metabolic Mpb780 eGFR 76 ml/min/1.73m2 04/01/2016 Comp Metabolic Hnn455 BUN 17 mg/dL 04/01/2016 Comp Metabolic Mua729 B/C Ratio 15.3 Ratio 04/01/2016 Comp Metabolic Zir517 CALCIUM 9.5 mg/dL 04/01/2016 Comp Metabolic Lyq354 ALK PHOS 73 U/L 04/01/2016 Comp Metabolic Uom781 AST(SGOT) 35 U/L 04/01/2016 Comp Metabolic Vow942 ALT(SGPT) 74 U/L 04/01/2016 Comp Metabolic Fxu273 BILI T 0.6 mg/dL 04/01/2016 Comp Metabolic Zsq373 ALBUMIN 4.3 g/dL 04/01/2016 Comp Metabolic Ryg117 TPRO 6.5 g/dL 04/01/2016 Comp Metabolic Iyv665 GLOB 2.2 g/dL 04/01/2016 Comp Metabolic Hqm446 A/G Ratio 1.9 Ratio 04/01/2016 Comp Metabolic Nzt636 Osmo 281 mOsmo 04/01/2016 Review of Systems System Result Effective Dates Constitutional No recent illness 2018 Constitutional No anorexia 08/29/2018 Constitutional No night sweats 2018 Constitutional No chills 08/29/2018 Constitutional No diaphoresis 08/29/2018 Constitutional No fatigue 08/29/2018 Constitutional No fever 08/29/2018 Constitutional No insomnia 08/29/2018 Constitutional No malaise 08/29/2018 Constitutional No weight loss 08/29/2018 Constitutional No weight gain 08/29/2018 Eyes No blindness 08/29/2018 Ears/Nose/Throat/Neck No nasal allergies 08/29/2018 Ears/Nose/Throat/Neck No nasal discharge 08/29/2018 Respiratory No chest congestion 2018 Respiratory No dyspnea 08/29/2018 Gastrointestinal No abdominal pain 2018 Gastrointestinal No constipation 2018 Gastrointestinal No diarrhea 08/29/2018 Genitourinary/Nephrology No dysuria 08/29 Dermatologic No rash 08/29/2018 Neurologic No alteration of consciousness 08/29/2018 Neurologic No mental status change 2018 Psychiatric No drug abuse 08/29/2018 Hematologic/Lymphatic lymph node enlargement/mass 08/29/2018 Musculoskeletal joint complaint 2018 Endocrine No dry or coarse skin 2018 Cardiovascular No chest pain/pressure Constitutional No recent illness 2018 Constitutional No anorexia 05/30/2018 Constitutional No night sweats 2018 Constitutional No chills 05/30/2018 Constitutional No diaphoresis 05/30/2018 Constitutional No fatigue 05/30/2018 Constitutional No fever 05/30/2018 Constitutional No insomnia 05/30/2018 Constitutional No malaise 05/30/2018 Constitutional No weight loss 05/30/2018 Constitutional No weight gain 05/30/2018 Musculoskeletal shoulder pain 05/30/2018 Dermatologic No sores 05/30/2018 Dermatologic No rash 05/30/2018 Constitutional recent illness 05/05/2018 Constitutional No anorexia 05/05/2018 Constitutional No night sweats 2018 Constitutional No chills 05/05/2018 Constitutional No diaphoresis 05/05/2018 Constitutional No fatigue 05/05/2018 Constitutional No fever 05/05/2018 Constitutional No insomnia 05/05/2018 Constitutional No malaise 05/05/2018 Constitutional No weight loss 05/05/2018 Constitutional No weight gain 05/05/2018 Eyes No eye discharge 05/05/2018 Eyes No eye erythema 05/05/2018 Ears/Nose/Throat/Neck headache 2018 Ears/Nose/Throat/Neck nasal allergies 07/2018 Ears/Nose/Throat/Neck nasal discharge 07/2018 Ears/Nose/Throat/Neck sinus congestion Ears/Nose/Throat/Neck No otalgia 2018 Cardiovascular No chest pain/pressure 07/2018 Respiratory cough 05/05/2018 Respiratory productive sputum 05/05/2018 Gastrointestinal No diarrhea 05/05/2018 Gastrointestinal No constipation 2018 Dermatologic No sores 05/05/2018 Dermatologic No rash 05/05/2018 Constitutional No recent illness 2017 Constitutional No anorexia 04/22/2018 Constitutional No night sweats 2017 Constitutional No chills 04/22/2018 Constitutional No diaphoresis 04/22/2018 Constitutional fatigue 04/22/2018 Constitutional No fever 04/22/2018 Constitutional insomnia 04/22/2018 Constitutional No malaise 04/22/2018 Constitutional No weight loss 04/22/2018 Constitutional No weight gain 04/22/2018 Eyes No blindness 04/22/2018 Ears/Nose/Throat/Neck No nasal allergies 04/22/2018 Ears/Nose/Throat/Neck No nasal discharge 04/22/2018 Cardiovascular No chest pain/pressure Cardiovascular No dyspnea 04/22/2018 Respiratory No chest congestion 2017 Respiratory No dyspnea 04/22/2018 Gastrointestinal No abdominal pain 2017 Gastrointestinal No constipation 2017 Gastrointestinal No diarrhea 04/22/2018 Genitourinary/Nephrology No dysuria 04/22 Musculoskeletal back pain 04/22/2018 Musculoskeletal shoulder pain 04/22/2018 Dermatologic No rash 04/22/2018 Neurologic No alteration of consciousness 04/22/2018 Neurologic No mental status change 2017 Psychiatric No drug abuse 04/22/2018 Gastrointestinal gastroesophageal reflux 04/22/2018 Constitutional No recent illness 2017 Constitutional No [...] 1994 Constitutional general appearance Overall: well developed 08/29/2018 None Full Exam - General 1994 Constitutional general appearance Overall: in no acute distress 08/29/2018 None Full Exam - General 1994 Constitutional general appearance Overall: well nourished 08/29/2018 None Full Exam - General 1994 Eyes conjunctiva /eyelids Overall: conjunctiva clear 08/29/2018 None Full Exam - General 1994 Eyes conjunctiva /eyelids Overall: cornea clear 08/29/2018 None Full Exam - General 1994 Eyes conjunctiva /eyelids Overall: eyelids normal 08/29/2018 None Full Exam - General 1994 Ears/Nose/Throat otoscopic exam Overall: external auditory canals clear 08/29/2018 None Full Exam - General 1994 Ears/Nose/Throat otoscopic exam Overall: tympanic membranes clear 08/29/2018 None Full Exam - General 1994 Ears/Nose/Throat lips/teeth/gingiva Overall: benign lips 08/29/2018 None Full Exam - General 1994 Ears/Nose/Throat lips/teeth/gingiva Overall: normal dentition 08/29/2018 None Full Exam - General 1994 Ears/Nose/Throat oral cavity/pharynx/larynx Overall: oral mucosa clear 08/29/2018 None Full Exam - General 1994 Ears/Nose/Throat oral cavity/pharynx/larynx Overall: oropharyngeal mucosa clear 08/29/2018 None Full Exam - General 1994 Ears/Nose/Throat oral cavity/pharynx/larynx Overall: no masses 08/29/2018 None Full Exam - General 1994 Respiratory auscultation Overall: breath sounds clear bilaterally 08/29/2018 None Full Exam - General 1994 Respiratory respiratory effort/rhythm Overall: no retractions 08/29/2018 None Full Exam - General 1994 Respiratory respiratory effort/rhythm Overall: normal rate 08/29/2018 None Full Exam - General 1994 Cardiovascular extremities Overall: no clubbing 08/29/2018 None Full Exam - General 1994 Cardiovascular auscultation of heart Overall: regular rate 08/29/2018 None Full Exam - General 1994 Cardiovascular auscultation of heart Overall: normal heart sounds 08/29/2018 None Full Exam - General 1994 Abdomen abdominal exam Overall: no tenderness 08/29/2018 None Full Exam - General 1994 Musculoskeletal spine, ribs and pelvis Overall: spine benign 08/29/2018 None Full Exam - General 1994 Musculoskeletal head and neck Overall: head atraumatic 08/29/2018 None Full Exam - General 1994 Integument inspection of skin Overall: no rash, lesions 08/29/2018 None Full Exam - General 1994 Neurologic cranial nerves Overall: crainial nerves 2 - 12 grossly intact 08/29/2018 None Full Exam - General 1994 Psychiatric orientation/consciousness Overall: oriented to person, place and time 08/29/2018 None Full Exam - General 1994 Psychiatric mood and affect Overall: normal mood and affect 08/29/2018 None Full Exam - General 1994 Psychiatric appearance Overall: well-groomed, good eye contact 08/29/2018 None Full Exam - Cardiology Lymphatic axilla/ arm nodes Right axillary: tender 08/29/2018 None Full Exam - Cardiology Lymphatic axilla/ arm nodes Right axillary: number of palpable nodes: 2 right chest wall 08/29/2018 None Full Exam - Cardiology Lymphatic inguinal nodes Overall: inguinal non- tender, not enlarged 08/29/2018 None Full Exam - Cardiology Abdomen abdominal exam Overall: normal bowel sounds 08/29/2018 small palpable lymph x1 left lower costal margin Full Exam - General 1994 Constitutional general appearance Overall: well developed 05/30/2018 None Full Exam - General 1994 Constitutional general appearance Overall: in no acute distress 05/30/2018 None Full Exam - General 1994 Constitutional general appearance Overall: well nourished 05/30/2018 None Full Exam - General 1994 Eyes conjunctiva /eyelids Overall: conjunctiva clear 05/30/2018 None Full Exam - General 1994 Eyes conjunctiva /eyelids Overall: cornea clear 05/30/2018 None Full Exam - General 1994 Eyes conjunctiva /eyelids Overall: eyelids normal 05/30/2018 None Full Exam - General 1994 Ears/Nose/Throat otoscopic exam Overall: external auditory canals clear 05/30/2018 None Full Exam - General 1994 Ears/Nose/Throat otoscopic exam Overall: tympanic membranes clear 05/30/2018 None Full Exam - General 1994 Ears/Nose/Throat lips/teeth/gingiva Overall: benign lips 05/30/2018 None Full Exam - General 1994 Ears/Nose/Throat lips/teeth/gingiva Overall: normal dentition 05/30/2018 None Full Exam - General 1994 Ears/Nose/Throat oral cavity/pharynx/larynx Overall: oral mucosa clear 05/30/2018 None Full Exam - General 1994 Ears/Nose/Throat oral cavity/pharynx/larynx Overall: oropharyngeal mucosa clear 05/30/2018 None Full Exam - General 1994 Ears/Nose/Throat oral cavity/pharynx/larynx Overall: no masses 05/30/2018 None Full Exam - General 1994 Respiratory auscultation Overall: breath sounds clear bilaterally 05/30/2018 None Full Exam - General 1994 Respiratory respiratory effort/rhythm Overall: no retractions 05/30/2018 None Full Exam - General 1994 Respiratory respiratory effort/rhythm Overall: normal rate 05/30/2018 None Full Exam - General 1994 Cardiovascular extremities Overall: no clubbing 05/30/2018 None Full Exam - General 1994 Cardiovascular auscultation of heart Overall: regular rate 05/30/2018 None Full Exam - General 1994 Cardiovascular auscultation of heart Overall: normal heart sounds 05/30/2018 None Full Exam - General 1994 Abdomen abdominal exam Overall: no tenderness 05/30/2018 None Full Exam - General 1994 Abdomen abdominal exam Overall: normal bowel sounds 05/30/2018 None Full Exam - General 1994 Musculoskeletal upper extremity Palpation - shoulder: pain with resisted abduction 05/30/2018 None Full Exam - General 1994 Musculoskeletal upper extremity Palpation - shoulder: pain with resisted biceps flexion 05/30/2018 None Full Exam - General 1994 Musculoskeletal upper extremity Palpation - shoulder: pain with resisted internal rotation 05/30/2018 None Full Exam - General 1994 Musculoskeletal upper extremity Palpation - shoulder: pain with resisted external rotation 05/30/2018 None Full Exam - General 1994 Musculoskeletal spine, ribs and pelvis Overall: spine benign 05/30/2018 None Full Exam - General 1994 Musculoskeletal head and neck Overall: head atraumatic 05/30/2018 None Full Exam - General 1994 Integument inspection of skin Overall: no rash, lesions 05/30/2018 None Full Exam - General 1994 Neurologic cranial nerves Overall: crainial nerves 2 - 12 grossly intact 05/30/2018 None Full Exam - General 1994 Psychiatric orientation/consciousness Overall: oriented to person, place and time 05/30/2018 None Full Exam - General 1994 Psychiatric mood and affect Overall: normal mood and affect 05/30/2018 None Full Exam - General 1994 Psychiatric appearance Overall: well-groomed, good eye contact 05/30/2018 None Full Exam - ENT Constitutional general appearance Overall: well nourished 05/05/2018 None Full Exam - ENT Constitutional general appearance Overall: well developed 05/05/2018 None Full Exam - ENT Constitutional general appearance Overall: in no acute distress 05/05/2018 None Full Exam - ENT Neurologic orientation Overall: oriented to person, place and time 05/05/2018 None Full Exam - ENT Integument inspection of skin Overall: no rash, lesions 05/05/2018 None Full Exam - ENT Lymphatic palpation of lymph nodes Overall: posterior cervical chain benign 05/05/2018 None Full Exam - ENT Lymphatic palpation of lymph nodes Overall: anterior cervical chain benign 05/05/2018 None Full Exam - ENT Cardiovascular auscultation of heart Overall: regular rate 05/05/2018 None Full Exam - ENT Cardiovascular auscultation of heart Overall: normal heart sounds 05/05/2018 None Full Exam - ENT Respiratory inspection Overall: no retractions 05/05/2018 None Full Exam - ENT Respiratory inspection Overall: normal rate 07/2018 None Full Exam - ENT Respiratory auscultation Overall: breath sounds clear bilaterally 05/05/2018 None Full Exam - ENT Face and Head palpation Right maxillary sinus: tender 05/05/2018 None Full Exam - ENT Face and Head palpation Left maxillary sinus: tender 05/05/2018 None Full Exam - ENT Ears/Nose/Throat otoscopic exam Left tympanic membrane: not visualized 05/05/2018 None Full Exam - ENT Ears/Nose/Throat otoscopic exam Right external auditory canal: partial cerumen occlusion 05/05/2018 None Full Exam - ENT Ears/Nose/Throat otoscopic exam Left external auditory canal: complete cerumen impaction 05/05/2018 None Full Exam - ENT Ears/Nose/Throat otoscopic exam Right tympanic membrane: intact 05/05/2018 None Full Exam - ENT Ears/Nose/Throat oropharynx Overall: oral mucosa clear 05/05/2018 None Full Exam - General 1994 Constitutional general appearance Overall: well developed 04/22/2018 None Full Exam - General 1994 Constitutional general appearance Overall: in no acute distress 04/22/2018 None Full Exam - General 1994 Constitutional general appearance Overall: well nourished 04/22/2018 None Full Exam - General 1994 Eyes conjunctiva /eyelids Overall: conjunctiva clear 04/22/2018 None Full Exam - General 1994 Eyes conjunctiva /eyelids Overall: cornea clear 04/22/2018 None Full Exam - General 1994 Eyes conjunctiva /eyelids Overall: eyelids normal 04/22/2018 None Full Exam - General 1994 Ears/Nose/Throat otoscopic exam Overall: external auditory canals clear 04/22/2018 None Full Exam - General 1994 Ears/Nose/Throat otoscopic exam Overall: tympanic membranes clear 04/22/2018 None Full Exam - General 1994 Ears/Nose/Throat lips/teeth/gingiva Overall: benign lips 04/22/2018 None Full Exam - General 1994 Ears/Nose/Throat lips/teeth/gingiva Overall: normal dentition 04/22/2018 None Full Exam - General 1994 Ears/Nose/Throat oral cavity/pharynx/larynx Overall: oral mucosa clear 04/22/2018 None Full Exam - General 1994 Ears/Nose/Throat oral cavity/pharynx/larynx Overall: oropharyngeal mucosa clear 04/22/2018 None Full Exam - General 1994 Ears/Nose/Throat oral cavity/pharynx/larynx Overall: no masses 04/22/2018 None Full Exam - General 1994 Respiratory auscultation Overall: breath sounds clear bilaterally 04/22/2018 None Full Exam - General 1994 Respiratory respiratory effort/rhythm Overall: no retractions 04/22/2018 None Full Exam - General 1994 Respiratory respiratory effort/rhythm Overall: normal rate 04/22/2018 None Full Exam - General 1994 Cardiovascular extremities Overall: no clubbing 04/22/2018 None Full Exam - General 1994 Cardiovascular auscultation of heart Overall: regular rate 04/22/2018 None Full Exam - General 1994 Cardiovascular auscultation of heart Overall: normal heart sounds 04/22/2018 None Full Exam - General 1994 Abdomen abdominal exam Overall: no tenderness 04/22/2018 None Full Exam - General 1994 Abdomen abdominal exam Overall: normal bowel sounds 04/22/2018 None Full Exam - General 1994 Musculoskeletal spine, ribs and pelvis Overall: spine benign 04/22/2018 None Full Exam - General 1994 Musculoskeletal head and neck Overall: head atraumatic 04/22/2018 None Full Exam - General 1994 Integument inspection of skin Overall: no rash, lesions 04/22/2018 None Full Exam - General 1994 Neurologic cranial nerves Overall: crainial nerves 2 - 12 grossly intact 04/22/2018 None Full Exam - General 1994 Psychiatric orientation/consciousness Overall: oriented to person, place and time 04/22/2018 None Full Exam - General 1994 Psychiatric mood and affect Overall: normal mood and affect 04/22/2018 None Full Exam - General 1994 Psychiatric appearance Overall: well-groomed, good eye contact 04/22/2018 None Full Exam - General 1994 Constitutional [...] normal 03/11/2018 None Full Exam - General 1995 Ears/Nose/Throat otoscopic exam Overall: tympanic membranes clear [...] No Procedures data Vital Signs Date Vital 08/29/2018 Blood Pressure 1: 140/80 Code : 8480-6 BMI: 30.2 Code : 20765-6 Heart Rate 1 : 69 bpm Height: 6' Weight: 223 lbs 05/30/2018 Blood Pressure 1: 140/80 Code : 8480-6 BMI: 30.2 Code : 17874-2 Height: 6' Weight: 223 lbs 05/05/2018 Blood Pressure 1: 120/80 Code : 8480-6 BMI: 30.2 Code : 24966-7 Heart Rate 1 : 62 bpm Height: 6' SpO2: 95% Weight: 223 lbs 04/22/2018 Blood Pressure 1: 136/80 Code : 8480-6 BMI: 29.4 Code : 73640-6 Heart Rate 1 : 84 bpm Height: 6' SpO2: 97% Weight: 217 lbs 03/29/2018 Blood Pressure 1: 118/76 Code : 8480-6 BMI: 29.7 Code : 84521-9 Heart Rate 1 : 67 bpm Height: 6' SpO2: 97% Weight: 219 lbs 03/11/2018 Blood Pressure 1: 138/90 Code : 8480-6 BMI: 28.8 Code : 08196-9 Heart Rate 1 : 68 bpm Height: 6' SpO2: 92% Weight: 212 lbs 01/07/2017 Blood Pressure 1: 134/82 Code : 8480-6 BMI: 29.3 Code : 49759-8 Heart Rate 1 : 78 bpm Height: 6' SpO2: 98% Weight: 216 lbs 09/03/2016 Blood Pressure 1: 145/88 Code : 8480-6 BMI: 29.0 Code : 02030-0 Heart Rate 1 : 84 bpm Height: 6' SpO2: 97% Weight: 214 lbs 11/12/2015 Blood Pressure 1: 133/88 Code : 8480-6 BMI: 28.1 Code : 46565-4 Heart Rate 1 : 67 bpm Height: 6' SpO2: 97% Weight: 207 lbs 11/01/2015 Blood Pressure 1: 150/90 Code : 8480-6 Blood Pressure 1: 138/78 Code: 8480-6 BMI: 27.5 Code: 83606-6 Heart Rate 1: 73 bpm Height: 6' SpO2: 98% Weight: 203 lbs Functional Status No Functional Status data History of Present Illness Symptom Name Status Result Effective Date Notes Location on the right arm 08/29/2018 axilla area Quality acute 2018 None Onset and Resolution sudden in onset 08/29/2018 None Onset of Symptom 3 days ago 08/29/2018 None Pertinent Findings Denies ulceration 08/29/2018 None Pertinent Findings pain 08/29/2018 None Location on the left shoulder 05/30/2018 None Quality constant None Onset and Resolution ongoing 05/30/2018 None Onset of Symptom _ years ago 05/30/2018 None Exacerbating Factors exertion 05/30/2018 None Exacerbating Factors pulling 05/30/2018 None Exacerbating Factors throwing 05/30/2018 None Pertinent Findings Denies cough 05/30/2018 None Pertinent Findings loss of strength 05/30/2018 None Limitation on Activities moderately limits activities 05/30/2018 None Frequency of Episodes increasing 05/30/2018 None Alleviating Factors rest 05/30/2018 None Quality acute 2018 None Quality intermittent 05/05/2018 None Quality productive None Pertinent Findings Denies chills 05/05/2018 None Pertinent Findings Denies fever 05/05/2018 None Pertinent Findings nasal congestion 05/05/2018 None Pertinent Findings sputum production 05/05/2018 None Pertinent Findings Denies post nasal drip 05/05/2018 None Onset of Symptom 1+ weeks ago 05/05/2018 None Onset and Resolution ongoing 05/05/2018 None Frequency of Episodes daily 05/05/2018 None Limitation on Activities does not limit activities 05/05/2018 None Triggers no known associated factors 05/05/2018 None _ Other: _ 2017 None Quality acute 2017 None Quality chronic 04/22 None Onset and Resolution improved during the day 04/22/2018 None Severity moderate None Severity mild 2017 None Frequency of Episodes decreasing 04/22/2018 None Diet solids 2017 None Diet includes spicy foods 04/22/2018 None Diet includes caffeine 04/22/2018 None Diet includes mint None Diet includes chocolate 04/22/2018 None Alleviating Factors proton pump inhibitor 04/22/2018 None Hospital Follow Up _ Other: chest pain [...] data Encounters Encounter Performer Location Codes Date ([id number]) 47001 EST. PATIENT, LEVEL III Diagnosis: Localized enlarged lymph nodes[ICD10: R59.0] [facility] CPT-4: 52092 08/29/2018 ([id number]) 54178 EST. PATIENT, LEVEL III Diagnosis: Pain in left shoulder[ICD10: M25.512] [facility] CPT-4: 34604 05/30/2018 ([id number]) 70471 EST. PATIENT, LEVEL III Diagnosis: Cough[ICD10: R05] Diagnosis: Acute recurrent maxillary sinusitis[ICD10: J01.01] [facility] CPT-4: 55561 05/05/2018 ([id number]) 76159 EST. PATIENT, LEVEL III Diagnosis: Gastro-esophageal reflux disease with esophagitis[ICD10: K21.0] Diagnosis: Pain in left shoulder[ICD10: M25.512] [facility] CPT-4: 66703 04/22/2018 ([id number]) 92116 EST. PATIENT, LEVEL III Diagnosis: Pain in left shoulder[ICD10: M25.512] Diagnosis: Other chest pain[ICD10: R07.89] [facility] CPT-4: 82232 03/29/2018 ([id number]) PREV VISIT EST AGE 40-64 Diagnosis: Encounter for general adult medical examination with abnormal findings[ICD10: Z00.01] [facility] CPT-4: 51508 03/11/2018 ([id number]) 08912 EST. PATIENT, LEVEL III Diagnosis: Low back pain[ICD10: M54.5] Diagnosis: Generalized anxiety disorder[ICD10: F41.1] [facility] CPT-4: 75336 01/07/2017 75190 EST. PATIENT, LEVEL III Diagnosis: Other chest pain[ICD10: R07.89] Diagnosis: Pleurodynia[ICD10: R07.81] [facility] CPT-4 : 43922 09/03/2016 ([id number]) 87072 EST. PATIENT, LEVEL III Diagnosis: Low back pain[ICD10: M54.5] Diagnosis: Other intervertebral disc displacement, lumbar region[ICD10: M51.26] [facility] CPT-4: 92472 11/12/2015 ([id number]) OFFICE VISIT, NEW - LEVEL 4 Diagnosis: Low back pain[ICD10: M54.5] Diagnosis: Other muscle spasm[ICD10: M62.838] Diagnosis: Localized enlarged lymph nodes[ICD10: R59.0] Diagnosis: Other insomnia[ICD10: G47.09] [facility] CPT-4 : 46985 11/01/2015 Plan of Care Planned Activity Notes Codes Status Date Visit Plan: Enlarged lymph node-check labs today -right chest wall -refer to Dr Lopez for biopsy of node 08/29/2018 Patient Education: Patient Medication Summary Completed 08/29/2018 Care Plan: Comp Metabolic Pending 08/29/2018 Care Plan: Cbc With Differential Pending 08/29/2018 Referral: [facility] Referral Completed 06/07/2018 Visit Plan: Left shoulder pain-history of multiple surgeries-worsening -unable to tolerated NSAIDS due to GI upset -recommend patient see Dr Rosales for evaluation 05/30/2018 Appointment: Meagan Ritchie WPtel: [phone] (30 min) Complex 05/30/2018 Patient Education: Patient Medication Summary Completed 05/30/2018 Care Plan: Referral Order SNOMED-CT : 140008766 Pending 05/30/2018 Visit Plan: Sinusitis - Pt has acute infection - pain in face, maxillary region, Pt informed to use decongestant, RX given to patient, sinus rinses also recommended. Call if symptoms do not show improvement. 05/05/2018 Appointment: Meagan Ritchie WPtel: [phone] (30 min) Complex 05/05/2018 Patient Education: Patient Medication Summary Completed 05/05/2018 Visit Plan: Esophageal Reflux - the patient has been counseled against excessive intake of caffeine, spicy foods, peppermint, and cinnamon - all of which can exacerbate esophageal reflux. The patient is to take medications as prescribed and call the office if the symptoms are not improving. Left shoulder pain-rx for voltaren gel 04/22/2018 Appointment: Meagan Ritchie WPtel: [phone] [phone] (15 min) Moderate 04/22/2018 Patient Education: Patient Medication Summary Completed 04/22/2018 Visit Plan: Left shoulder pain -chronic -patient has had multiple surgeries -not interested in PT at this time-recommend anti inflammatories as directed- rest -discussed PT vs imaging if symptoms persist. Patient verbalized understanding Chest pain -cardiac work up negative including cath -patient to see nanny babysitter tomorrow-suspect pain is radiating from shoulder-continue to monitor 03/29/2018 Appointment: Meagan Ritchie WPtel: [address] [place], [place] [phone] (30 min) Complex 03/29/2018 Patient Education: Patient Medication Summary Completed [...] -regular exercise 03/11/2018 Appointment: Meagan Ritchie WPtel: [address] [place], [place] [phone] (30 min) Complex 03/11/2018 Patient Education: Patient Medication Summary Completed 03/11/2018 Care Plan: Referral Order SNOMED-CT : 052155303 Pending 03/11/2018 Visit Plan: Chronic back pain-follow [...] above medications. 01/07/2017 Appointment: Meagan Ritchie WPtel: [phone] (30 min) Complex 01/07/2017 Patient Education: Patient Medication Summary Completed 01/07/2017 Visit Plan: Right rib pain - will give order for x-ray - The pt is to use prn antiinflammatories to manage acute pain. The patient is to call the office if the pain is worsening or does not improve. 09/03/2016 Appointment: [phone] [facility] [place] (30 min) Complex 09/03/2016 Patient Education: [...] 7 days 11/12/2015 [facility]ment[phone] [place] (15 min) Moderate 11/12/2015 Patient Education: Patient Medication Summary Completed 11/12/2015 Patient Education: Obesity Completed 11/12/2015 Care Plan: Referral Order SNOMED-CT : 515656923 Pending 11/12/2015 Visit Plan: Insomnia - Pt [...] going to call and reschedule. Completed Referral: [facility] Referral Appointment Requested Referral: Melita Mendez Referral Appointment Requested Instructions Comment CHECK LABS TODAY REFER TO DR LOPEZ FOR BIOPSY OF LYMPH NODE RIGHT CHEST . Enlarged lymph node-check labs today -right chest wall -refer to Dr Lopez for biopsy of node . Right rib pain - will give [...] up negative including cath -patient to see nanny babysitter tomorrow-suspect pain is radiating from shoulder-continue to [...] Hyperlipidemia -recommend low fat diet -regular exercise TYLENOL UP TO THREE TIMES PER DAY NEEDED TRAMADOL FOR BREAKTHROUGH PAIN REFER TO DR ROSALES FOR LEFT SHOULDER PAIN . Left shoulder pain-history of multiple surgeries-worsening -unable to tolerated NSAIDS due to GI upset -recommend patient see Dr Rosales for evaluation DR LAWRENCE FOR SKIN CHECK . Esophageal Reflux - the patient has been counseled against excessive intake of caffeine, spicy foods, peppermint, and cinnamon - all of which can exacerbate esophageal reflux. The patient is to take medications as prescribed and call the office if the symptoms are not improving. Left shoulder pain-rx for voltaren gel TENS unit to back - referral to [...] benefits of treatment with the above medications. . Sinusitis - Pt has acute infection - pain in face, maxillary region, Pt informed to use decongestant, RX given to patient, sinus rinses also recommended. Call if symptoms do not show improvement.
--- OUTSIDE RECORDS SUMMARY | 2018-09-02 08:47 | XMS REPORT | CCD ---
Author Author Noemi Mercado Organization Irma Goldman MD, [facility] Address [address] [place] [address] Phone Care Team Providers Care Science Manager Name Role Phone PP Unavailable CCM Unavailable Summary Purpose Interface Exchange Insurance Providers Payer name Policy type / Coverage type Covered green party ID Effective Begin Date Effective End Date Blue Cross Blue Shield [facility] Blue Cross/Blue Shield [id number] Unknown Unknown Family history Mother Diagnosis Age At Onset Alcoholism Unknown Father Diagnosis Age At Onset Arthritis Unknown Skin cancer Unknown Alcoholism Unknown Brother Diagnosis Age At Onset Alcoholism Unknown Sister Diagnosis Age At Onset Alcoholism Unknown Social History Social History Element Codes Description Effective Dates Marital status Unknown 11/01/2015 Employment Unknown Currently employed [employer] 11/01/[address]: 687111924 Never smoker 11/01/[address]: 388114577 Never drinks alcohol 11/01/2015 Allergies, Adverse Reactions, [...] Fill Instructions cefdinir 300 mg capsule RxNorm: 583120 1 Capsule(s) PO BID 07/201805/11/2018 Inactive Zithromax Z-Brian 250 mg tablet RxNorm: 877978 1 Tablet(s) PO UD 04/27/2018 04/26/2018 Inactive Zithromax Z-Brian 250 mg tablet RxNorm: 577981 1 Tablet(s) PO UD 04/27/2018 05/01/2018 Inactive Voltaren 1 % topical gel RxNorm: 833265 4 Gram(s) TOP QID 04/2205/21/2018 Inactive Protonix 40 mg tablet,delayed release RxNorm: 271901 1 Tablet(s) PO daily 04/22/2018 08/28/2018 Inactive ibuprofen 800 mg tablet RxNorm: 796761 1 Tablet(s) PO TID as needed 03/29/2018 04/21/2018 Inactive tramadol 50 mg tablet RxNorm: 602105 1-2 Tablet(s) PO Q6 PRN 01/2018 No Stop Date Active Lexapro 10 mg tablet RxNorm: 334120 1 Tablet(s) PO QPM 201603/10/2018 Inactive cyclobenzaprine 5 mg tablet RxNorm: 174470 1/2 - 1 Tablet(s) PO TID as needed muscle spasms 11/01/2015 11/05/2015 Inactive prednisone 20 mg tablet RxNorm: 108974 2 Tablet(s) PO daily 05/201511/05/2015 Inactive ibuprofen 800 mg tablet RxNorm: 183390 1 Tablet(s) PO as needed No Start Date 03/28/2018 Inactive oxycodone-acetaminophen 5 mg-325 mg tablet RxNorm: 0464741 Tablet(s) PO as needed No Start Date 03/28/2018 Inactive Toprol XL 50 mg tablet,extended release RxNorm: 159009 1 Tablet(s) PO daily No Start Date 04/21/2018 Inactive Aspirin Low Dose 81 mg tablet,delayed release RxNorm: 058694 1 Tablet(s) PO daily No Start Date 04/21/2018 Inactive Cymbalta 20 mg capsule,delayed release RxNorm: 856886 1 Capsule(s) PO daily No Start Date 01/06/2017 Inactive oxycodone-acetaminophen 5 mg-325 mg tablet RxNorm: 3073081 Tablet(s) PO as needed No Start Date [...] Observation Code Item Item Code Result Date Cbc With Differential Ord2 WBC 6.37 K/ul 08/29/2018 Cbc With Differential Ord2 RBC 5.50 M/ul 08/29/2018 Cbc With Differential Ord2 HGB 15.8 g/dl 08/29/2018 Cbc With Differential Ord2 HCT 47.5 % 08/29/2018 Cbc With Differential Ord2 Neut% 45.0 % 08/29/2018 Cbc With Differential Ord2 MCV 86.4 fl 08/29/2018 Cbc With Differential Ord2 Lymph% 41.8 % 08/29/2018 Cbc With Differential Ord2 MCH 28.7 pg 08/29/2018 Cbc With Differential Ord2 Wilkes% 9.9 % 08/29/2018 Cbc With Differential Ord2 MCHC 33.3 pg 08/29/2018 Cbc With Differential Ord2 Eos% 2.5 % 08/29/2018 Cbc With Differential Ord2 PLT 266 K/ul 08/29/2018 Cbc With Differential Ord2 Baso% 0.8 % 08/29/2018 Cbc With Differential Ord2 RDW 12.6 % 08/29/2018 Cbc With Differential Ord2 Neut ABS# 2.87 K/ul 08/29/2018 Cbc With Differential Ord2 Lymph ABS# 2.66 K/ul 08/29/2018 Cbc With Differential Ord2 Wilkes ABS# 0.6 K/ul 08/29/2018 Cbc With Differential Ord2 Eos ABS# 0.2 K/ul 08/29/2018 Cbc With Differential Ord2 Baso ABS# 0.1 K/ul 08/29/2018 Lipid Ord30 CHOL 186 mg/dL 04/01/2016 Lipid [...] 29.3 pg 04/01/2016 Cbc With Differential Ord2 Wilkes% 10.3 % 04/01/2016 Cbc With Differential Ord2 [...] 2.58 K/ul 04/01/2016 Cbc With Differential Ord2 Wilkes ABS# 0.7 K/ul 04/01/2016 Cbc With Differential Ord2 Eos ABS# 0.2 K/ul 04/01/2016 Cbc With Differential Ord2 Baso ABS# 0.0 K/ul 04/01/2016 Tsh Ord6 hTSH II 2.06 uIU/mL 04/01/2016 Comp Metabolic Kag918 NA 140 mEq/L 04/01/2016 Comp Metabolic Dwb357 K 4.7 mEq/L 04/01/2016 Comp Metabolic Wya454 CL 105 mEq/L 04/01/2016 Comp Metabolic Rmd896 CO2 29.0 mEq/L 04/01/2016 Comp Metabolic Wdb810 ANION GAP 11 04/01/2016 Comp Metabolic Cqy185 GLUCOSE 99 mg/dL 04/01/2016 Comp Metabolic Ktg370 Creat 1.1 mg/dL 04/01/2016 Comp Metabolic Hsv793 eGFR 76 ml/min/1.73m2 04/01/2016 Comp Metabolic Zni899 BUN 17 mg/dL 04/01/2016 Comp Metabolic Xrh821 B/C Ratio 15.3 Ratio 04/01/2016 Comp Metabolic Yet488 CALCIUM 9.5 mg/dL 04/01/2016 Comp Metabolic Npo158 ALK PHOS 73 U/L 04/01/2016 Comp Metabolic Dzc073 AST(SGOT) 35 U/L 04/01/2016 Comp Metabolic Bsz305 ALT(SGPT) 74 U/L 04/01/2016 Comp Metabolic Eao970 BILI T 0.6 mg/dL 04/01/2016 Comp Metabolic Wtl762 ALBUMIN 4.3 g/dL 04/01/2016 Comp Metabolic Mhz156 TPRO 6.5 g/dL 04/01/2016 Comp Metabolic Sjo590 GLOB 2.2 g/dL 04/01/2016 Comp Metabolic Zxm494 A/G Ratio 1.9 Ratio 04/01/2016 Comp Metabolic Mic149 Osmo 281 mOsmo 04/01/2016 Review of Systems [...] clear 05/30/2018 None Full Exam - General 1995 Ears/Nose/Throat [...] Code : 8480-6 BMI: 30.2 Code : 64721-4 Heart Rate 1 : 69 bpm Height: 6' Weight: 223 lbs 05/30/2018 Blood Pressure 1: 140/80 Code : 8480-6 BMI: 30.2 Code : 27074-4 Height: 6' Weight: 223 lbs 05/05/2018 Blood Pressure 1: 120/80 Code : 8480-6 BMI: 30.2 Code : 60874-4 Heart Rate 1 : 62 bpm Height: 6' SpO2: 95% Weight: 223 lbs 04/22/2018 Blood Pressure 1: 136/80 Code : 8480-6 BMI: 29.4 Code : 27645-5 Heart Rate 1 : 84 bpm Height: 6' SpO2: 97% Weight: 217 lbs 03/29/2018 Blood Pressure 1: 118/76 Code : 8480-6 BMI: 29.7 Code : 17319-6 Heart Rate 1 : 67 bpm Height: 6' SpO2: 97% Weight: 219 lbs 03/11/2018 Blood Pressure 1: 138/90 Code : 8480-6 BMI: 28.8 Code : 84424-0 Heart Rate 1 : 68 bpm Height: 6' SpO2: 92% Weight: 212 lbs 01/07/2017 Blood Pressure 1: 134/82 Code : 8480-6 BMI: 29.3 Code : 32458-2 Heart Rate 1 : 78 bpm Height: 6' SpO2: 98% Weight: 216 lbs 09/03/2016 Blood Pressure 1: 145/88 Code : 8480-6 BMI: 29.0 Code : 87725-6 Heart Rate 1 : 84 bpm Height: 6' SpO2: 97% Weight: 214 lbs 11/12/2015 Blood Pressure 1: 133/88 Code : 8480-6 BMI: 28.1 Code : 27148-2 Heart Rate 1 : 67 bpm Height: 6' SpO2: 97% Weight: 207 lbs 11/01/2015 Blood Pressure 1: 150/90 Code : 8480-6 Blood Pressure 1: 138/78 Code: 8480-6 BMI: 27.5 Code: 84107-0 Heart Rate 1: 73 bpm Height: 6' [...] data Encounters Encounter Performer Location Codes Date ([id number]) 26765 EST. PATIENT, LEVEL III Diagnosis: Localized enlarged lymph nodes[ICD10: R59.0] Irma Goldman MD, [facility] CPT-4: 90590 08/29/2018 ([id number]) 24558 EST. PATIENT, LEVEL III Diagnosis: Pain in left shoulder[ICD10: M25.512] Meagan Goldman MD, [facility] CPT-4: 52158 05/30/2018 [id number]) 28288 EST. PATIENT, LEVEL III Diagnosis: Cough[ICD10: R05] Diagnosis: Acute recurrent maxillary sinusitis[ICD10: J01.01] Meagan Goldman MD, [facility] CPT-4: 60955 05/05/2018 [id number]) 39352 EST. PATIENT, LEVEL III Diagnosis: Gastro-esophageal reflux disease with esophagitis[ICD10: K21.0] Diagnosis: Pain in left shoulder[ICD10: M25.512] [facility] CPT-4: 01924 04/22/2018 48309 92842 EST. PATIENT, LEVEL III Diagnosis: Pain in left shoulder[ICD10: M25.512] Diagnosis: Other chest pain[ICD10: R07.89] [facility] CPT-4: 57673 03/29/2018 ([id number]) PREV VISIT EST AGE 40-64 Diagnosis: Encounter for general adult medical examination with abnormal findings[ICD10: Z00.01] [facility] CPT-4: 54387 03/11/2018 ([id number]) 55188 EST. PATIENT, LEVEL III Diagnosis: Low back pain[ICD10: M54.5] Diagnosis: Generalized anxiety disorder[ICD10: F41.1] [facility] CPT-4: 45009 01/07/2017 09130 EST. PATIENT, LEVEL III Diagnosis: Other chest pain[ICD10: R07.89] Diagnosis: Pleurodynia[ICD10: R07.81] [facility] CPT-4 : 60263 09/03/2016 ([id number]) 77671 EST. PATIENT, LEVEL III Diagnosis: Low back pain[ICD10: M54.5] Diagnosis: Other intervertebral disc displacement, lumbar region[ICD10: M51.26] Irma Goldman MD, [facility] CPT-4: 98138 11/12/2015 ([id number]) OFFICE VISIT, NEW - LEVEL 4 Diagnosis: Low back pain[ICD10: M54.5] Diagnosis: Other muscle spasm[ICD10: M62.838] Diagnosis: Localized enlarged lymph nodes[ICD10: R59.0] Diagnosis: Other insomnia[ICD10: G47.09] Noemi Goldman MD, [facility] CPT-4 : 31899 11/01/2015 Plan of Care Planned Activity Notes Codes Status Date Visit Plan: Enlarged lymph node-check labs today -right chest wall -refer to Dr Lopez for biopsy of node 08/29/2018 Visit Plan: Enlarged lymph node-check labs today -right chest wall -refer to Dr Lopez for biopsy of node ADDENDUM: Doctor's eval of the patient - I, Dr. Goldman, personally evaluated the patient with the nurse practitioner. I have reviewed the patient's chart, I have reviewed the patient' s past medical history, problem list, medication list, and personal history. I agree with the documentation by the nurse practitioner in the HPI, physical exam , and the assessment and plan. 08/29/2018 Patient Education: Patient Medication Summary Completed 08/29/2018 Care Plan: Comp Metabolic Pending 08/29/2018 Referral: [facility] Referral Completed 06/07/2018 Visit Plan: Left shoulder pain-history of multiple surgeries-worsening -unable to tolerated NSAIDS due to GI upset -recommend patient see Dr Rosales for evaluation 05/30/2018 Appointment: Meagan Ritchie WPtel: [phone] [phone] (30 min) Complex 05/30/2018 Patient Education: Patient Medication Summary Completed 05/30/2018 Care Plan: Referral Order SNOMED-CT : 261946927 Pending 05/30/2018 Visit Plan: Sinusitis - Pt has acute infection - pain in face, maxillary region, Pt informed to use decongestant, RX given to patient, sinus rinses also recommended. Call if symptoms do not show improvement. 05/05/2018 Appointment: Meagan Ritchie WPtel: [phone] [phone] (30 min) Complex 05/05/2018 Patient Education: [...] gel 04/22/2018 Appointment: Meagan Ritchie WPtel: [phone] [phone] (15 min) Moderate 04/22/2018 Patient Education: Patient Medication Summary Completed 04/22/2018 Visit Plan: Left shoulder pain -chronic -patient has had multiple surgeries -not interested in PT at this time-recommend anti inflammatories as directed- rest -discussed PT vs imaging if symptoms persist. Patient verbalized understanding Chest pain -cardiac work up negative including cath -patient to see inspector scales tomorrow-suspect pain is radiating from shoulder-continue to monitor 03/29/2018 Appointment: Meagan Ritchie WPtel: [phone] [phone] [place] (30 min) Complex 03/29/2018 Patient Education: Patient [...] -regular exercise 03/11/2018 Appointment: Meagan Ritchie WPtel: [phone] (30 min) Complex 03/11/2018 Patient Education: Patient Medication Summary Completed 03/11/2018 Care Plan: Referral Order SNOMED-CT : 549218672 Pending 03/11/2018 Visit Plan: Chronic back pain-follow [...] above medications. 01/07/2017 Appointment: Meagan Ritchie WPtel: [phone] (30 min) Complex 01/07/2017 Patient Education: Patient Medication Summary Completed 01/07/2017 Visit Plan: Right rib pain - will give order for x-ray - The pt is to use prn antiinflammatories to manage acute pain. The patient is to call the office if the pain is worsening or does not improve. 09/03/2016 Appointment: Noemi Mercado WPtel[facility] (30 min) Complex 09/03/2016 Patient Education: [...] days 11/12/2015 [facility]ment: [phone] [facility] [place] (15 min) Moderate 11/12/2015 Patient Education: Patient Medication Summary Completed 11/12/2015 Patient Education: Obesity Completed 11/12/2015 Care Plan: Referral Order SNOMED-CT : 993327719 Pending 11/12/2015 Visit Plan: Insomnia - Pt [...] Dr Lopez for biopsy of node . Enlarged lymph node-check labs today -right chest wall - refer to Dr Lopez for biopsy of node ADDENDUM: Doctor's eval of the patient - I, Dr. Goldman, personally evaluated the patient with the nurse practitioner. I have reviewed the patient's chart, I have reviewed the patient's past medical history, problem list, medication list, and personal history. I agree with the documentation by the nurse practitioner in the HPI, physical exam, and the assessment and plan. . Right rib pain - will give [...] up negative including cath -patient to see inspector scales tomorrow-suspect pain is radiating from shoulder-continue to [...]
--- OUTSIDE RECORDS SUMMARY | 2018-09-02 08:48 | XMS REPORT | CCD ---
Author Author Noemi Mercado Organization [facility] Address [address] [place] [address] Phone Care Team Providers Care Automobile Brakes Bonder Name Role Phone PP Unavailable CCM Unavailable Summary Purpose Interface Exchange Insurance Providers Payer name Policy type / Coverage type Covered republican ID Effective Begin Date Effective End Date Blue Cross Blue Shield [facility] Blue Cross/Blue Shield [id number] Unknown Unknown Family history Mother Diagnosis Age At Onset Alcoholism Unknown Father Diagnosis Age At Onset Arthritis Unknown Skin cancer Unknown Alcoholism Unknown Brother Diagnosis Age At Onset Alcoholism Unknown Sister Diagnosis Age At Onset Alcoholism Unknown Social History Social History Element Codes Description Effective Dates Marital status Unknown 11/01/2015 Employment Unknown Currently employed [employer] 11/01/[address]: 373188095 Never smoker 11/01/[address]: 472029592 Never drinks alcohol 11/01/2015 Allergies, Adverse Reactions, Alerts Substance Reaction Codes Entered Date Inactivated Date Status * NO KNOWN DRUG ALLERGIES Unknown 11/01/2015 No Inactive Date Active Past Medical History Illness Codes Condition Status Onset Date Resolved Date Pain in left shoulder ICD-9: 719.41 ICD-10: [...] Problems Condition Codes Effective Dates Condition Status Pain in left shoulder ICD-9: 719.41 ICD-10: [...] Fill Instructions cefdinir 300 mg capsule RxNorm: 036696 1 Capsule(s) PO BID 07/201805/11/2018 Inactive Zithromax Z-Brian 250 mg tablet RxNorm: 579438 1 Tablet(s) PO UD 04/27/2018 04/26/2018 Inactive Zithromax Z-Brian 250 mg tablet RxNorm: 281503 1 Tablet(s) PO UD 04/27/2018 05/01/2018 Inactive Protonix 40 mg tablet,delayed release RxNorm: 879562 1 Tablet(s) PO daily 04/22/2018 No Stop Date Active Voltaren 1 % topical gel RxNorm: 792033 4 Gram(s) TOP QID 04/2205/21/2018 Inactive ibuprofen 800 mg tablet RxNorm: 278945 1 Tablet(s) PO TID as needed 03/29/2018 04/21/2018 Inactive tramadol 50 mg tablet RxNorm: 769629 1-2 Tablet(s) PO Q6 PRN 01/2018 No Stop Date Active Lexapro 10 mg tablet RxNorm: 473746 1 Tablet(s) PO QPM 201603/10/2018 Inactive cyclobenzaprine 5 mg tablet RxNorm: 487644 1/2 - 1 Tablet(s) PO TID as needed muscle spasms 11/01/2015 11/05/2015 Inactive prednisone 20 mg tablet RxNorm: 287276 2 Tablet(s) PO daily 05/201511/05/2015 Inactive ibuprofen 800 mg tablet RxNorm: 112958 1 Tablet(s) PO as needed No Start Date 03/28/2018 Inactive oxycodone-acetaminophen 5 mg-325 mg tablet RxNorm: 7264205 Tablet(s) PO as needed No Start Date 03/28/2018 Inactive Toprol XL 50 mg tablet,extended release RxNorm: 408050 1 Tablet(s) PO daily No Start Date 04/21/2018 Inactive Aspirin Low Dose 81 mg tablet,delayed release RxNorm: 703890 1 Tablet(s) PO daily No Start Date 04/21/2018 Inactive Cymbalta 20 mg capsule,delayed release RxNorm: 998856 1 Capsule(s) PO daily No Start Date 01/06/2017 Inactive oxycodone-acetaminophen 5 mg-325 mg tablet RxNorm: 4521179 Tablet(s) PO as needed No Start Date 11/01/2015 Inactive Medication Administered No Medication Administered data Immunizations No Immunization data Assessments Condition Codes Effective Dates Pain in left shoulder ICD-10: M25.512 ICD-9: [...] Visit Reason For Visit Effective Dates Notes shoulder pain 05/30/2018 cough 05/05/2018 gastroesophageal reflux [...] 29.3 pg 04/01/2016 Cbc With Differential Ord2 [place]% 10.3 % 04/01/2016 Cbc With Differential Ord2 [...] 2.58 K/ul 04/01/2016 Cbc With Differential Ord2 [place] ABS# 0.7 K/ul 04/01/2016 Cbc With Differential Ord2 Eos ABS# 0.2 K/ul 04/01/2016 Cbc With Differential Ord2 Baso ABS# 0.0 K/ul 04/01/2016 Tsh Ord6 hTSH II 2.06 uIU/mL 04/01/2016 Comp Metabolic Lnl071 NA 140 mEq/L 04/01/2016 Comp Metabolic Uqt060 K 4.7 mEq/L 04/01/2016 Comp Metabolic Dgj513 CL 105 mEq/L 04/01/2016 Comp Metabolic Xwm588 CO2 29.0 mEq/L 04/01/2016 Comp Metabolic Fjj725 ANION GAP 11 04/01/2016 Comp Metabolic Nnw318 GLUCOSE 99 mg/dL 04/01/2016 Comp Metabolic Tfx481 Creat 1.1 mg/dL 04/01/2016 Comp Metabolic Yig430 eGFR 76 ml/min/1.73m2 04/01/2016 Comp Metabolic Aze578 BUN 17 mg/dL 04/01/2016 Comp Metabolic Gtp888 B/C Ratio 15.3 Ratio 04/01/2016 Comp Metabolic Env644 CALCIUM 9.5 mg/dL 04/01/2016 Comp Metabolic Gok528 ALK PHOS 73 U/L 04/01/2016 Comp Metabolic Lyj405 AST(SGOT) 35 U/L 04/01/2016 Comp Metabolic Coi871 ALT(SGPT) 74 U/L 04/01/2016 Comp Metabolic Agy614 BILI T 0.6 mg/dL 04/01/2016 Comp Metabolic Sjb208 ALBUMIN 4.3 g/dL 04/01/2016 Comp Metabolic Rhy252 TPRO 6.5 g/dL 04/01/2016 Comp Metabolic Tpw999 GLOB 2.2 g/dL 04/01/2016 Comp Metabolic Iqh061 A/G Ratio 1.9 Ratio 04/01/2016 Comp Metabolic Zku692 Osmo 281 mOsmo 04/01/2016 Review of Systems [...] lips 05/30/2018 None Full Exam - General 1995 Ears/Nose/Throat lips/teeth/gingiva Overall: normal dentition 05/30/2018 None [...] No Procedures data Vital Signs Date Vital 05/30/2018 Blood Pressure 1: 140/80 Code : 8480-6 BMI: 30.2 Code : 91419-8 Height: 6' Weight: 223 lbs 05/05/2018 Blood Pressure 1: 120/80 Code : 8480-6 BMI: 30.2 Code : 63432-6 Heart Rate 1 : 62 bpm Height: 6' SpO2: 95% Weight: 223 lbs 04/22/2018 Blood Pressure 1: 136/80 Code : 8480-6 BMI: 29.4 Code : 84476-3 Heart Rate 1 : 84 bpm Height: 6' SpO2: 97% Weight: 217 lbs 03/29/2018 Blood Pressure 1: 118/76 Code : 8480-6 BMI: 29.7 Code : 06295-9 Heart Rate 1 : 67 bpm Height: 6' SpO2: 97% Weight: 219 lbs 03/11/2018 Blood Pressure 1: 138/90 Code : 8480-6 BMI: 28.8 Code : 21253-1 Heart Rate 1 : 68 bpm Height: 6' SpO2: 92% Weight: 212 lbs 01/07/2017 Blood Pressure 1: 134/82 Code : 8480-6 BMI: 29.3 Code : 26083-4 Heart Rate 1 : 78 bpm Height: 6' SpO2: 98% Weight: 216 lbs 09/03/2016 Blood Pressure 1: 145/88 Code : 8480-6 BMI: 29.0 Code : 93089-8 Heart Rate 1 : 84 bpm Height: 6' SpO2: 97% Weight: 214 lbs 11/12/2015 Blood Pressure 1: 133/88 Code : 8480-6 BMI: 28.1 Code : 19176-7 Heart Rate 1 : 67 bpm Height: 6' SpO2: 97% Weight: 207 lbs 11/01/2015 Blood Pressure 1: 150/90 Code : 8480-6 Blood Pressure 1: 138/78 Code: 8480-6 BMI: 27.5 Code: 17425-8 Heart Rate 1: 73 bpm Height: 6' SpO2: 98% Weight: 203 lbs Functional Status No Functional Status data History of Present Illness Symptom Name Status Result Effective Date Notes Location on the left shoulder 05/30/2018 None [...] data Encounters Encounter Performer Location Codes Date ([id number]) 91056 EST. PATIENT, LEVEL III Diagnosis: Pain in left shoulder[ICD10: M25.512] Meagan Goldman MD, [facility] CPT-4: 01783 05/30/2018 ([id number]) 24165 EST. PATIENT, LEVEL III Diagnosis: Cough[ICD10: R05] Diagnosis: Acute recurrent maxillary sinusitis[ICD10: J01.01] Meagan Goldman MD, [facility] CPT-4: 38997 05/05/2018 ([id number]) 69613 EST. PATIENT, LEVEL III Diagnosis: Gastro-esophageal reflux disease with esophagitis[ICD10: K21.0] Diagnosis: Pain in left shoulder[ICD10: M25.512] Meagan Goldman MD, [facility] CPT-4: 67204 04/22/2018 ([id number]) 69191 EST. PATIENT, LEVEL III Diagnosis: Pain in left shoulder[ICD10: M25.512] Diagnosis: Other chest pain[ICD10: R07.89] [facility] CPT-4: 53955 03/29/2018 ([id number]) PREV VISIT EST AGE 40-64 Diagnosis: Encounter for general adult medical examination with abnormal findings[ICD10: Z00.01] [facility] CPT-4: 38227 03/11/2018 ([id number]) 14019 EST. PATIENT, LEVEL III Diagnosis: Low back pain[ICD10: M54.5] Diagnosis: Generalized anxiety disorder[ICD10: F41.1] [facility] CPT-4: 68939 01/07/2017 48414 EST. PATIENT, LEVEL III Diagnosis: Other chest pain[ICD10: R07.89] Diagnosis: Pleurodynia[ICD10: R07.81] [facility] CPT-4 : 96731 09/03/2016 ([id number]) 90697 EST. PATIENT, LEVEL III Diagnosis: Low back pain[ICD10: M54.5] Diagnosis: Other intervertebral disc displacement, lumbar region[ICD10: M51.26] [facility] CPT-4: 13472 11/12/2015 ([id number]) OFFICE VISIT, NEW - LEVEL 4 Diagnosis: Low back pain[ICD10: M54.5] Diagnosis: Other muscle spasm[ICD10: M62.838] Diagnosis: Localized enlarged lymph nodes[ICD10: R59.0] Diagnosis: Other insomnia[ICD10: G47.09] [facility] CPT-4 : 19251 11/01/2015 Plan of Care Planned Activity Notes Codes Status Date Visit Plan: Left shoulder pain-history of multiple surgeries-worsening -unable to tolerated NSAIDS due to GI upset -recommend patient see Dr Rosales for evaluation 05/30/2018 Patient Education: Patient Medication Summary Completed 05/30/2018 Care Plan: Referral Order SNOMED-CT : 628137812 Pending 05/30/2018 Visit Plan: Sinusitis - Pt has acute infection - pain in face, maxillary region, Pt informed to use decongestant, RX given to patient, sinus rinses also recommended. Call if symptoms do not show improvement. 05/05/2018 Appointment: Meagan Ritchie WPtel: [address] [place], [place] [phone] (30 min) Complex 05/05/2018 Patient Education: Patient [...] voltaren gel 04/22/2018 Appointment: Meagan Ritchie WPtel: [phone] (15 min) Moderate 04/22/2018 Patient Education: Patient Medication Summary Completed 04/22/2018 Visit Plan: Left shoulder pain -chronic -patient has had multiple surgeries -not interested in PT at this time-recommend anti inflammatories as directed- rest -discussed PT vs imaging if symptoms persist. Patient verbalized understanding Chest pain -cardiac work up negative including cath -patient to see lean specialist tomorrow-suspect pain is radiating from shoulder-continue to monitor 03/29/2018 Appointment: Meagan Ritchie WPtel: [phone] (30 min) Complex 03/29/2018 Patient Education: Patient [...] -regular exercise 03/11/2018 Appointment: Meagan Ritchie WPtel: [phone] (30 min) Complex 03/11/2018 Patient Education: Patient Medication Summary Completed 03/11/2018 Care Plan: Referral Order SNOMED-CT : 321906190 Pending 03/11/2018 Visit Plan: Chronic back pain-follow [...] above medications. 01/07/2017 Appointment: Meagan Ritchie WPtel: [phone] [place] (30 min) Complex 01/07/2017 Patient Education: Patient Medication Summary Completed 01/07/2017 Visit Plan: Right rib pain - will give order for x-ray - The pt is to use prn antiinflammatories to manage acute pain. The patient is to call the office if the pain is worsening or does not improve. 09/03/2016 Appointment: Noemi Mercado WPtel: [address] [facility] [place] (30 min) Complex 09/03/2016 Patient Education: [...] days 11/12/2015 Appointment: Ir[facility] WPtel: [facility] [place] (15 min) Moderate 11/12/2015 Patient Education: Patient Medication Summary Completed 11/12/2015 Patient Education: Obesity Completed 11/12/2015 Care Plan: Referral Order SNOMED-CT : 806671646 Pending 11/12/2015 Visit Plan: Insomnia - Pt [...] going to call and reschedule. Completed Referral: [facility] Referral Appointment Requested Referral: Melita Mendez [...] up negative including cath -patient to see lean specialist tomorrow-suspect pain is radiating from shoulder-continue to [...]
--- OUTSIDE RECORDS SUMMARY | 2018-09-02 08:49 | XMS REPORT | CCD ---
Author Author Noemi Mercado Organization [facility], [facility] Address [address] [place] [address] Phone Care Team Providers Care Sorting Machine Operator Name Role Phone PP Unavailable CCM Unavailable Summary Purpose Interface Exchange Insurance Providers Payer name Policy type / Coverage type Covered democrat ID Effective Begin Date Effective End Date Blue Cross Blue Shield [facility] Blue Cross/Blue Shield [id number] Unknown Unknown Family history Mother Diagnosis Age At Onset Alcoholism Unknown Father Diagnosis Age At Onset Arthritis Unknown Skin cancer Unknown Alcoholism Unknown Brother Diagnosis Age At Onset Alcoholism Unknown Sister Diagnosis Age At Onset Alcoholism Unknown Social History Social History Element Codes Description Effective Dates Marital status Unknown 11/01/2015 Employment Unknown Currently employed [employer] 11/01/[address]: 598176463 Never smoker 11/01/[address]: 271069938 Never drinks alcohol 11/01/2015 Allergies, Adverse Reactions, [...] Fill Instructions cefdinir 300 mg capsule RxNorm: 093599 1 Capsule(s) PO BID 07/201805/11/2018 Inactive Zithromax Z-Brian 250 mg tablet RxNorm: 246039 1 Tablet(s) PO UD 04/27/2018 04/26/2018 Inactive Zithromax Z-Brian 250 mg tablet RxNorm: 903532 1 Tablet(s) PO UD 04/27/2018 05/01/2018 Inactive Protonix 40 mg tablet,delayed release RxNorm: 333918 1 Tablet(s) PO daily 04/22/2018 No Stop Date Active Voltaren 1 % topical gel RxNorm: 716855 4 Gram(s) TOP QID 04/2205/21/2018 Inactive ibuprofen 800 mg tablet RxNorm: 089372 1 Tablet(s) PO TID as needed 03/29/2018 04/21/2018 Inactive tramadol 50 mg tablet RxNorm: 847688 1-2 Tablet(s) PO Q6 PRN 01/2018 No Stop Date Active Lexapro 10 mg tablet RxNorm: 609101 1 Tablet(s) PO QPM 201603/10/2018 Inactive cyclobenzaprine 5 mg tablet RxNorm: 806091 1/2 - 1 Tablet(s) PO TID as needed muscle spasms 11/01/2015 11/05/2015 Inactive prednisone 20 mg tablet RxNorm: 762699 2 Tablet(s) PO daily 05/201511/05/2015 Inactive ibuprofen 800 mg tablet RxNorm: 623516 1 Tablet(s) PO as needed No Start Date 03/28/2018 Inactive oxycodone-acetaminophen 5 mg-325 mg tablet RxNorm: 3177974 Tablet(s) PO as needed No Start Date 03/28/2018 Inactive Toprol XL 50 mg tablet,extended release RxNorm: 963482 1 Tablet(s) PO daily No Start Date 04/21/2018 Inactive Aspirin Low Dose 81 mg tablet,delayed release RxNorm: 380447 1 Tablet(s) PO daily No Start Date 04/21/2018 Inactive Cymbalta 20 mg capsule,delayed release RxNorm: 861196 1 Capsule(s) PO daily No Start Date 01/06/2017 Inactive oxycodone-acetaminophen 5 mg-325 mg tablet RxNorm: 0503121 Tablet(s) PO as needed No Start Date [...] 29.3 pg 04/01/2016 Cbc With Differential Ord2 [place]% 10.3 % 04/01/2016 Cbc With Differential Ord2 [...] 2.58 K/ul 04/01/2016 Cbc With Differential Ord2 [place] ABS# 0.7 K/ul 04/01/2016 Cbc With Differential Ord2 Eos ABS# 0.2 K/ul 04/01/2016 Cbc With Differential Ord2 Baso ABS# 0.0 K/ul 04/01/2016 Tsh Ord6 hTSH II 2.06 uIU/mL 04/01/2016 Comp Metabolic Pwp183 NA 140 mEq/L 04/01/2016 Comp Metabolic Ynm708 K 4.7 mEq/L 04/01/2016 Comp Metabolic Oih147 CL 105 mEq/L 04/01/2016 Comp Metabolic Neq024 CO2 29.0 mEq/L 04/01/2016 Comp Metabolic Upp678 ANION GAP 11 04/01/2016 Comp Metabolic Ria653 GLUCOSE 99 mg/dL 04/01/2016 Comp Metabolic Dlg140 Creat 1.1 mg/dL 04/01/2016 Comp Metabolic Yff913 eGFR 76 ml/min/1.73m2 04/01/2016 Comp Metabolic Sld813 BUN 17 mg/dL 04/01/2016 Comp Metabolic Hyh223 B/C Ratio 15.3 Ratio 04/01/2016 Comp Metabolic Zqq549 CALCIUM 9.5 mg/dL 04/01/2016 Comp Metabolic Tya360 ALK PHOS 73 U/L 04/01/2016 Comp Metabolic Nyh353 AST(SGOT) 35 U/L 04/01/2016 Comp Metabolic Kor629 ALT(SGPT) 74 U/L 04/01/2016 Comp Metabolic Yzk826 BILI T 0.6 mg/dL 04/01/2016 Comp Metabolic Tmj248 ALBUMIN 4.3 g/dL 04/01/2016 Comp Metabolic Tlx266 TPRO 6.5 g/dL 04/01/2016 Comp Metabolic Apo525 GLOB 2.2 g/dL 04/01/2016 Comp Metabolic Rrw366 A/G Ratio 1.9 Ratio 04/01/2016 Comp Metabolic Dtf767 Osmo 281 mOsmo 04/01/2016 Review of Systems [...] Code : 8480-6 BMI: 30.2 Code : 81463-2 Height: 6' Weight: 223 lbs 05/05/2018 Blood Pressure 1: 120/80 Code : 8480-6 BMI: 30.2 Code : 60452-6 Heart Rate 1 : 62 bpm Height: 6' SpO2: 95% Weight: 223 lbs 04/22/2018 Blood Pressure 1: 136/80 Code : 8480-6 BMI: 29.4 Code : 99725-3 Heart Rate 1 : 84 bpm Height: 6' SpO2: 97% Weight: 217 lbs 03/29/2018 Blood Pressure 1: 118/76 Code : 8480-6 BMI: 29.7 Code : 64573-1 Heart Rate 1 : 67 bpm Height: 6' SpO2: 97% Weight: 219 lbs 03/11/2018 Blood Pressure 1: 138/90 Code : 8480-6 BMI: 28.8 Code : 78170-3 Heart Rate 1 : 68 bpm Height: 6' SpO2: 92% Weight: 212 lbs 01/07/2017 Blood Pressure 1: 134/82 Code : 8480-6 BMI: 29.3 Code : 42490-6 Heart Rate 1 : 78 bpm Height: 6' SpO2: 98% Weight: 216 lbs 09/03/2016 Blood Pressure 1: 145/88 Code : 8480-6 BMI: 29.0 Code : 60901-5 Heart Rate 1 : 84 bpm Height: 6' SpO2: 97% Weight: 214 lbs 11/12/2015 Blood Pressure 1: 133/88 Code : 8480-6 BMI: 28.1 Code : 35922-9 Heart Rate 1 : 67 bpm Height: 6' SpO2: 97% Weight: 207 lbs 11/01/2015 Blood Pressure 1: 150/90 Code : 8480-6 Blood Pressure 1: 138/78 Code: 8480-6 BMI: 27.5 Code: 25992-3 Heart Rate 1: 73 bpm Height: 6' [...] data Encounters Encounter Performer Location Codes Date ([id number]) 97116 EST. PATIENT, LEVEL III Diagnosis: Pain in left shoulder[ICD10: M25.512] Meagan Goldman MD, [facility] CPT-4: 32303 05/30/2018 ([id number]) 43365 EST. PATIENT, LEVEL III Diagnosis: Cough[ICD10: R05] Diagnosis: Acute recurrent maxillary sinusitis[ICD10: J01.01] Meagan Goldman MD, [facility] CPT-4: 48247 05/05/2018 ([id number]) 38067 EST. PATIENT, LEVEL III Diagnosis: Gastro-esophageal reflux disease with esophagitis[ICD10: K21.0] Diagnosis: Pain in left shoulder[ICD10: M25.512] Meagan Goldman MD, [facility] CPT-4: 83758 04/22/2018 ([id number]) 24914 EST. PATIENT, LEVEL III Diagnosis: Pain in left shoulder[ICD10: M25.512] Diagnosis: Other chest pain[ICD10: R07.89] [facility] CPT-4: 57041 03/29/2018 ([id number]) PREV VISIT EST AGE 40-64 Diagnosis: Encounter for general adult medical examination with abnormal findings[ICD10: Z00.01] [facility] CPT-4: 69289 03/11/2018 ([id number]) 48124 EST. PATIENT, LEVEL III Diagnosis: Low back pain[ICD10: M54.5] Diagnosis: Generalized anxiety disorder[ICD10: F41.1] [facility] CPT-4: 38559 01/07/2017 79183 EST. PATIENT, LEVEL III Diagnosis: Other chest pain[ICD10: R07.89] Diagnosis: Pleurodynia[ICD10: R07.81] [facility] CPT-4 : 79069 09/03/2016 ([id number]) 08479 EST. PATIENT, LEVEL III Diagnosis: Low back pain[ICD10: M54.5] Diagnosis: Other intervertebral disc displacement, lumbar region[ICD10: M51.26] [facility] CPT-4: 39788 11/12/2015 ([id number]) OFFICE VISIT, NEW - LEVEL 4 Diagnosis: Low back pain[ICD10: M54.5] Diagnosis: Other muscle spasm[ICD10: M62.838] Diagnosis: Localized enlarged lymph nodes[ICD10: R59.0] Diagnosis: Other insomnia[ICD10: G47.09] [facility] CPT-4 : 39707 11/01/2015 Plan of Care Planned Activity Notes Codes Status Date Visit Plan: Left shoulder pain-history of multiple surgeries-worsening -unable to tolerated NSAIDS due to GI upset -recommend patient see Dr Rosales for evaluation 05/30/2018 Patient Education: Patient Medication Summary Completed 05/30/2018 Care Plan: Referral Order SNOMED-CT : 986681751 Pending 05/30/2018 Visit Plan: Sinusitis - Pt has acute infection - pain in face, maxillary region, Pt informed to use decongestant, RX given to patient, sinus rinses also recommended. Call if symptoms do not show improvement. 05/05/2018 Appointment: Meagan Ritchie WPtel: [address] [place], [place] [phone] (30 min) Complex 05/05/2018 Patient Education: Patient [...] voltaren gel 04/22/2018 Appointment: Meagan Ritchie WPtel: [phone] (15 min) Moderate 04/22/2018 Patient Education: Patient Medication Summary Completed 04/22/2018 Visit Plan: Left shoulder pain -chronic -patient has had multiple surgeries -not interested in PT at this time-recommend anti inflammatories as directed- rest -discussed PT vs imaging if symptoms persist. Patient verbalized understanding Chest pain -cardiac work up negative including cath -patient to see transit mechanic tomorrow-suspect pain is radiating from shoulder-continue to monitor 03/29/2018 Appointment: Meagan Ritchie WPtel: [phone] (30 min) Complex 03/29/2018 Patient Education: Patient [...] -regular exercise 03/11/2018 Appointment: Meagan Ritchie WPtel: [phone] (30 min) Complex 03/11/2018 Patient Education: Patient Medication Summary Completed 03/11/2018 Care Plan: Referral Order SNOMED-CT : 587051457 Pending 03/11/2018 Visit Plan: Chronic back pain-follow [...] above medications. 01/07/2017 Appointment: Meagan Ritchie WPtel: [phone] [place] (30 min) Complex 01/07/2017 Patient Education: Patient Medication Summary Completed 01/07/2017 Visit Plan: Right rib pain - will give order for x-ray - The pt is to use prn antiinflammatories to manage acute pain. The patient is to call the office if the pain is worsening or does not improve. 09/03/2016 Appointment: Noemi Mercado WPtel: [address] [facility] [place] (30 min) Complex 09/03/2016 [...] 7 days 11/12/2015 Appointment: Irma Goldman WPtel: [facility] [place] (15 min) Moderate 11/12/2015 Patient Education: Patient Medication Summary Completed 11/12/2015 Patient Education: Obesity Completed 11/12/2015 Care Plan: Referral Order SNOMED-CT : 653619253 Pending 11/12/2015 Visit Plan: Insomnia - Pt [...] up negative including cath -patient to see transit mechanic tomorrow-suspect pain is radiating from shoulder-continue to [...]
--- OUTSIDE RECORDS SUMMARY | 2018-09-02 08:50 | XMS REPORT | CCD ---
Author Author Noemi Mercado Organization [facility] Address [address] [place] [address] Phone Care Team Providers Care Respiratory Therapy Director Name Role Phone PP Unavailable CCM Unavailable Summary Purpose Interface Exchange Insurance Providers Payer name Policy type / Coverage type Covered constitution party ID Effective Begin Date Effective End Date Blue Cross Blue Shield [facility] Blue Cross/Blue Shield [id number] Unknown Unknown Family history Mother Diagnosis Age At Onset Alcoholism Unknown Father Diagnosis Age At Onset Arthritis Unknown Skin cancer Unknown Alcoholism Unknown Brother Diagnosis Age At Onset Alcoholism Unknown Sister Diagnosis Age At Onset Alcoholism Unknown Social History Social History Element Codes Description Effective Dates Marital status Unknown 11/01/2015 Employment Unknown Currently employed [employer] 11/01/[address]: 587946268 Never smoker 11/01/[address]: 395222395 Never drinks alcohol 11/01/2015 Allergies, Adverse Reactions, Alerts Substance Reaction Codes Entered Date Inactivated Date Status * NO KNOWN DRUG ALLERGIES Unknown 11/01/2015 No Inactive Date Active Past Medical History Illness Codes Condition Status Onset Date Resolved Date Acute recurrent maxillary sinusitis ICD-9: 461.0 ICD-10: J01.01 Active 05/05/2018 Unknown Cough ICD-9: 786.2 ICD-10: R05 Active 05/05/2018 Unknown Gastro-esophageal reflux disease with esophagitis ICD-9: 530.11 ICD-10: K21.0 Active 04/22/2018 Unknown Pain in left shoulder ICD-9: 719.41 ICD-10: M25.512 Active 03/29/2018 Unknown Other chest pain ICD-9 : 786.59 [...] Problems Condition Codes Effective Dates Condition Status Acute recurrent maxillary sinusitis ICD-9: 461.0 ICD-10: J01.01 05/05/2018 Active Cough ICD-9: 786.2 ICD-10: R05 05/05/2018 Active Gastro-esophageal reflux disease with esophagitis ICD-9: 530.11 ICD-10: K21.0 04/22/2018 Active Pain in left shoulder ICD-9: 719.41 ICD-10: M25.512 03/29/2018 Active Other chest pain ICD-9 : 786.59 [...] Fill Instructions cefdinir 300 mg capsule RxNorm: 062306 1 Capsule(s) PO BID 07/201805/11/2018 Active Zithromax Z-Brian 250 mg tablet RxNorm: 763208 1 Tablet(s) PO UD 04/27/2018 04/26/2018 Inactive Zithromax Z-Brian 250 mg tablet RxNorm: 366986 1 Tablet(s) PO UD 04/27/2018 05/01/2018 Inactive Voltaren 1 % topical gel RxNorm: 670819 4 Gram(s) TOP QID 04/2205/21/2018 Active Protonix 40 mg tablet,delayed release RxNorm: 531393 1 Tablet(s) PO daily 04/22/2018 No Stop Date Active ibuprofen 800 mg tablet RxNorm: 633935 1 Tablet(s) PO TID as needed 03/29/2018 04/21/2018 Inactive tramadol 50 mg tablet RxNorm: 518859 1-2 Tablet(s) PO Q6 PRN 01/2018 No Stop Date Active Lexapro 10 mg tablet RxNorm: 173731 1 Tablet(s) PO QPM 201603/10/2018 Inactive cyclobenzaprine 5 mg tablet RxNorm: 916297 1/2 - 1 Tablet(s) PO TID as needed muscle spasms 11/01/2015 11/05/2015 Inactive prednisone 20 mg tablet RxNorm: 641118 2 Tablet(s) PO daily 05/201511/05/2015 Inactive ibuprofen 800 mg tablet RxNorm: 135323 1 Tablet(s) PO as needed No Start Date 03/28/2018 Inactive oxycodone-acetaminophen 5 mg-325 mg tablet RxNorm: 3899427 Tablet(s) PO as needed No Start Date 03/28/2018 Inactive Toprol XL 50 mg tablet,extended release RxNorm: 216467 1 Tablet(s) PO daily No Start Date 04/21/2018 Inactive Aspirin Low Dose 81 mg tablet,delayed release RxNorm: 026646 1 Tablet(s) PO daily No Start Date 04/21/2018 Inactive Cymbalta 20 mg capsule,delayed release RxNorm: 086961 1 Capsule(s) PO daily No Start Date 01/06/2017 Inactive oxycodone-acetaminophen 5 mg-325 mg tablet RxNorm: 1221369 Tablet(s) PO as needed No Start Date 11/01/2015 Inactive Medication Administered No Medication Administered data Immunizations No Immunization data Assessments Condition Codes Effective Dates Acute recurrent maxillary sinusitis ICD-10: J01.01 ICD-9: 461.0 05/05/2018 Cough ICD-10: R05 ICD-9: 786.2 05/05/2018 Gastro-esophageal reflux disease with esophagitis ICD-10: K21.0 ICD-9: 530.11 04/22/2018 Pain in left shoulder ICD-10: M25.512 ICD-9: 719.41 04/22/2018 Other chest pain ICD-10: R07.89 ICD-9: [...] Visit Reason For Visit Effective Dates Notes cough 05/05/2018 gastroesophageal reflux 04/22/2018 Hospital Follow [...] 29.3 pg 04/01/2016 Cbc With Differential Ord2 [place]% 10.3 % 04/01/2016 Cbc With Differential Ord2 [...] 2.58 K/ul 04/01/2016 Cbc With Differential Ord2 [place] ABS# 0.7 K/ul 04/01/2016 Cbc With Differential Ord2 [place] ABS# 0.2 K/ul 04/01/2016 Cbc With Differential Ord2 Baso ABS# 0.0 K/ul 04/01/2016 Tsh Ord6 hTSH II 2.06 uIU/mL 04/01/2016 Comp Metabolic Fzs720 NA 140 mEq/L 04/01/2016 Comp Metabolic Fdp800 K 4.7 mEq/L 04/01/2016 Comp Metabolic Jhf723 CL 105 mEq/L 04/01/2016 Comp Metabolic Cjt133 CO2 29.0 mEq/L 04/01/2016 Comp Metabolic Avn570 ANION GAP 11 04/01/2016 Comp Metabolic Rpp494 GLUCOSE 99 mg/dL 04/01/2016 Comp Metabolic Bdz560 Creat 1.1 mg/dL 04/01/2016 Comp Metabolic Ylo460 eGFR 76 ml/min/1.73m2 04/01/2016 Comp Metabolic Tid395 BUN 17 mg/dL 04/01/2016 Comp Metabolic Ifk869 B/C Ratio 15.3 Ratio 04/01/2016 Comp Metabolic Eea529 CALCIUM 9.5 mg/dL 04/01/2016 Comp Metabolic Drj476 ALK PHOS 73 U/L 04/01/2016 Comp Metabolic Fau479 AST(SGOT) 35 U/L 04/01/2016 Comp Metabolic Xgg786 ALT(SGPT) 74 U/L 04/01/2016 Comp Metabolic Oev971 BILI T 0.6 mg/dL 04/01/2016 Comp Metabolic Wti489 ALBUMIN 4.3 g/dL 04/01/2016 Comp Metabolic Lqw060 TPRO 6.5 g/dL 04/01/2016 Comp Metabolic Hfm891 GLOB 2.2 g/dL 04/01/2016 Comp Metabolic Nbt800 A/G Ratio 1.9 Ratio 04/01/2016 Comp Metabolic Nni904 Osmo 281 mOsmo 04/01/2016 Review of Systems System Result Effective Dates Constitutional recent illness 05/05/2018 Constitutional No anorexia [...] Result Effective Dates Notes Full Exam - ENT Constitutional general appearance [...] No Procedures data Vital Signs Date Vital 05/05/2018 Blood Pressure 1: 120/80 Code : 8480-6 BMI: 30.2 Code : 00786-8 Heart Rate 1 : 62 bpm Height: 6' SpO2: 95% Weight: 223 lbs 04/22/2018 Blood Pressure 1: 136/80 Code : 8480-6 BMI: 29.4 Code : 54357-9 Heart Rate 1 : 84 bpm Height: 6' SpO2: 97% Weight: 217 lbs 03/29/2018 Blood Pressure 1: 118/76 Code : 8480-6 BMI: 29.7 Code : 96204-1 Heart Rate 1 : 67 bpm Height: 6' SpO2: 97% Weight: 219 lbs 03/11/2018 Blood Pressure 1: 138/90 Code : 8480-6 BMI: 28.8 Code : 68263-7 Heart Rate 1 : 68 bpm Height: 6' SpO2: 92% Weight: 212 lbs 01/07/2017 Blood Pressure 1: 134/82 Code : 8480-6 BMI: 29.3 Code : 85415-9 Heart Rate 1 : 78 bpm Height: 6' SpO2: 98% Weight: 216 lbs 09/03/2016 Blood Pressure 1: 145/88 Code : 8480-6 BMI: 29.0 Code : 88623-1 Heart Rate 1 : 84 bpm Height: 6' SpO2: 97% Weight: 214 lbs 11/12/2015 Blood Pressure 1: 133/88 Code : 8480-6 BMI: 28.1 Code : 87644-2 Heart Rate 1 : 67 bpm Height: 6' SpO2: 97% Weight: 207 lbs 11/01/2015 Blood Pressure 1: 150/90 Code : 8480-6 Blood Pressure 1: 138/78 Code: 8480-6 BMI: 27.5 Code: 64196-3 Heart Rate 1: 73 bpm Height: 6' SpO2: 98% Weight: 203 lbs Functional Status No Functional Status data History of Present Illness Symptom Name Status Result Effective Date Notes Quality acute 2018 None Quality intermittent 05/05/2018 [...] data Encounters Encounter Performer Location Codes Date ([id number]) 02983 EST. PATIENT, LEVEL III Diagnosis: Cough[ICD10: R05] Diagnosis: Acute recurrent maxillary sinusitis[ICD10: J01.01] Meagan Goldman MD, [facility] CPT-4: 01458 05/05/2018 ([id number]) 06791 EST. PATIENT, LEVEL III Diagnosis: Gastro-esophageal reflux disease with esophagitis[ICD10: K21.0] Diagnosis: Pain in left shoulder[ICD10: M25.512] [facility] CPT-4: 01866 04/22/2018 ([id number]) 88023 EST. PATIENT, LEVEL III Diagnosis: Pain in left shoulder[ICD10: M25.512] Diagnosis: Other chest pain[ICD10: R07.89] [facility] CPT-4: 82066 03/29/2018 ([id number]) PREV VISIT EST AGE 40-64 Diagnosis: Encounter for general adult medical examination with abnormal findings[ICD10: Z00.01] [facility] CPT-4: 16126 03/11/2018 ([id number]) 07659 EST. PATIENT, LEVEL III Diagnosis: Low back pain[ICD10: M54.5] Diagnosis: Generalized anxiety disorder[ICD10: F41.1] [facility] CPT-4: 58065 01/07/2017 [id number] EST. PATIENT, LEVEL III Diagnosis: Other chest pain[ICD10: R07.89] Diagnosis: Pleurodynia[ICD10: R07.81] [facility] CPT-4 : 51596 09/03/2016 ([id number]) 33209 EST. 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 Call if symptoms do not show improvement. 05/05/2018 Appointment: Meagan Ritchie WPtel: [address] [place], [place] [phone] (30 min) Complex 05/05/2018 Patient Education: Patient [...] voltaren gel 04/22/2018 Appointment: Meagan Ritchie WPtel: [address] [place], [place] [phone] (15 min) Moderate 04/22/2018 Patient Education: Patient Medication Summary Completed 04/22/2018 Visit Plan: Left shoulder pain -chronic -patient has had multiple surgeries -not interested in PT at this time-recommend anti inflammatories as directed- rest -discussed PT vs imaging if symptoms persist. Patient verbalized understanding Chest pain -cardiac work up negative including cath -patient to see incident response analyst tomorrow-suspect pain is radiating from shoulder-continue to monitor 03/29/2018 Appointment: Meagan Ritchie WPtel: [address] [place], [place] [phone] (30 min) Complex 03/29/2018 Patient Education: Patient [...] -regular exercise 03/11/2018 Appointment: Meagan Ritchie WPtel: [address] [place], [place] [phone] (30 min) Complex 03/11/2018 Patient Education: Patient Medication Summary Completed 03/11/2018 Care Plan: Referral Order SNOMED-CT : 221301377 Pending 03/11/2018 Visit Plan: Chronic back pain-follow [...] above medications. 01/07/2017 Appointment: Meagan Ritchie WPtel: [address] [place], [place] [phone] (30 min) Complex 01/07/2017 Patient Education: Patient Medication Summary Completed 01/07/2017 Visit Plan: Right rib pain - will give order for x-ray - The pt is to use prn antiinflammatories to manage acute pain. The patient is to call the office if the pain is worsening or does not improve. 09/03/2016 Appointment: [facility] [phone] [facility] [place] (30 min) Complex 09/03/2016 Patient Education: [...] 7 days 11/12/2015 [facility] [phone] [facility] [place] (15 min) Moderate 11/12/2015 Patient Education: Patient Medication Summary Completed 11/12/2015 Patient Education: Obesity Completed 11/12/2015 Care Plan: Referral Order SNOMED-CT : 114509867 Pending 11/12/2015 Visit Plan: Insomnia - Pt [...] up negative including cath -patient to see incident response analyst tomorrow-suspect pain is radiating from shoulder-continue to [...] Hyperlipidemia -recommend low fat diet -regular exercise DR LAWRENCE FOR SKIN CHECK . Esophageal [...]
--- OUTSIDE RECORDS SUMMARY | 2018-09-02 08:51 | XMS REPORT | CCD ---
Author Author Noemi Mercado Organization [facility] Address [address] [place] [address] Phone Care Team Providers Care Machine Wedger Name Role Phone PP Unavailable CCM Unavailable Summary Purpose Interface Exchange Insurance Providers Payer name Policy type / Coverage type Covered democrat ID Effective Begin Date Effective End Date Blue Cross Blue Shield [facility] Blue Cross/Blue Shield [id number] Unknown Unknown Family history Mother Diagnosis Age At Onset Alcoholism Unknown Father Diagnosis Age At Onset Arthritis Unknown Skin cancer Unknown Alcoholism Unknown Brother Diagnosis Age At Onset Alcoholism Unknown Sister Diagnosis Age At Onset Alcoholism Unknown Social History Social History Element Codes Description Effective Dates Marital status Unknown 11/01/2015 Employment Unknown Currently employed [employer] 11/01/[address]: 019394712 Never smoker 11/01/[address]: 086295327 Never drinks alcohol 11/01/2015 Allergies, Adverse Reactions, [...] Fill Instructions cefdinir 300 mg capsule RxNorm: 599170 1 Capsule(s) PO BID 07/201805/11/2018 Active Zithromax Z-Brian 250 mg tablet RxNorm: 869396 1 Tablet(s) PO UD 04/27/2018 04/26/2018 Inactive Zithromax Z-Brian 250 mg tablet RxNorm: 860086 1 Tablet(s) PO UD 04/27/2018 05/01/2018 Inactive Voltaren 1 % topical gel RxNorm: 581625 4 Gram(s) TOP QID 04/2205/21/2018 Active Protonix 40 mg tablet,delayed release RxNorm: 897990 1 Tablet(s) PO daily 04/22/2018 No Stop Date Active ibuprofen 800 mg tablet RxNorm: 703251 1 Tablet(s) PO TID as needed 03/29/2018 04/21/2018 Inactive tramadol 50 mg tablet RxNorm: 053609 1-2 Tablet(s) PO Q6 PRN 01/2018 No Stop Date Active Lexapro 10 mg tablet RxNorm: 193836 1 Tablet(s) PO QPM 201603/10/2018 Inactive cyclobenzaprine 5 mg tablet RxNorm: 897814 1/2 - 1 Tablet(s) PO TID as needed muscle spasms 11/01/2015 11/05/2015 Inactive prednisone 20 mg tablet RxNorm: 814731 2 Tablet(s) PO daily 05/201511/05/2015 Inactive ibuprofen 800 mg tablet RxNorm: 578948 1 Tablet(s) PO as needed No Start Date 03/28/2018 Inactive oxycodone-acetaminophen 5 mg-325 mg tablet RxNorm: 3023194 Tablet(s) PO as needed No Start Date 03/28/2018 Inactive Toprol XL 50 mg tablet,extended release RxNorm: 336180 1 Tablet(s) PO daily No Start Date 04/21/2018 Inactive Aspirin Low Dose 81 mg tablet,delayed release RxNorm: 040275 1 Tablet(s) PO daily No Start Date 04/21/2018 Inactive Cymbalta 20 mg capsule,delayed release RxNorm: 988325 1 Capsule(s) PO daily No Start Date 01/06/2017 Inactive oxycodone-acetaminophen 5 mg-325 mg tablet RxNorm: 1502916 Tablet(s) PO as needed No Start Date [...] 29.3 pg 04/01/2016 Cbc With Differential Ord2 [place]% 10.3 % 04/01/2016 Cbc With Differential Ord2 [...] 2.58 K/ul 04/01/2016 Cbc With Differential Ord2 [place] ABS# 0.7 K/ul 04/01/2016 Cbc With Differential Ord2 Eos ABS# 0.2 K/ul 04/01/2016 Cbc With Differential Ord2 Baso ABS# 0.0 K/ul 04/01/2016 Tsh Ord6 hTSH II 2.06 uIU/mL 04/01/2016 Comp Metabolic Rdx997 NA 140 mEq/L 04/01/2016 Comp Metabolic Mmg315 K 4.7 mEq/L 04/01/2016 Comp Metabolic Vjz486 CL 105 mEq/L 04/01/2016 Comp Metabolic Wju708 CO2 29.0 mEq/L 04/01/2016 Comp Metabolic Ndb563 ANION GAP 11 04/01/2016 Comp Metabolic Bbf176 GLUCOSE 99 mg/dL 04/01/2016 Comp Metabolic Tna863 Creat 1.1 mg/dL 04/01/2016 Comp Metabolic Tex868 eGFR 76 ml/min/1.73m2 04/01/2016 Comp Metabolic Bdd438 BUN 17 mg/dL 04/01/2016 Comp Metabolic Sfr475 B/C Ratio 15.3 Ratio 04/01/2016 Comp Metabolic Sjj874 CALCIUM 9.5 mg/dL 04/01/2016 Comp Metabolic Vix869 ALK PHOS 73 U/L 04/01/2016 Comp Metabolic Can992 AST(SGOT) 35 U/L 04/01/2016 Comp Metabolic Oyb750 ALT(SGPT) 74 U/L 04/01/2016 Comp Metabolic Kks956 BILI T 0.6 mg/dL 04/01/2016 Comp Metabolic Zpb137 ALBUMIN 4.3 g/dL 04/01/2016 Comp Metabolic Hgc862 TPRO 6.5 g/dL 04/01/2016 Comp Metabolic Vca709 GLOB 2.2 g/dL 04/01/2016 Comp Metabolic Kpz090 A/G Ratio 1.9 Ratio 04/01/2016 Comp Metabolic Jes287 Osmo 281 mOsmo 04/01/2016 Review of Systems [...] Code : 8480-6 BMI: 30.2 Code : 44806-7 Heart Rate 1 : 62 bpm Height: 6' SpO2: 95% Weight: 223 lbs 04/22/2018 Blood Pressure 1: 136/80 Code : 8480-6 BMI: 29.4 Code : 52455-0 Heart Rate 1 : 84 bpm Height: 6' SpO2: 97% Weight: 217 lbs 03/29/2018 Blood Pressure 1: 118/76 Code : 8480-6 BMI: 29.7 Code : 15908-5 Heart Rate 1 : 67 bpm Height: 6' SpO2: 97% Weight: 219 lbs 03/11/2018 Blood Pressure 1: 138/90 Code : 8480-6 BMI: 28.8 Code : 60629-4 Heart Rate 1 : 68 bpm Height: 6' SpO2: 92% Weight: 212 lbs 01/07/2017 Blood Pressure 1: 134/82 Code : 8480-6 BMI: 29.3 Code : 69604-8 Heart Rate 1 : 78 bpm Height: 6' SpO2: 98% Weight: 216 lbs 09/03/2016 Blood Pressure 1: 145/88 Code : 8480-6 BMI: 29.0 Code : 98468-8 Heart Rate 1 : 84 bpm Height: 6' SpO2: 97% Weight: 214 lbs 11/12/2015 Blood Pressure 1: 133/88 Code : 8480-6 BMI: 28.1 Code : 29478-0 Heart Rate 1 : 67 bpm Height: 6' SpO2: 97% Weight: 207 lbs 11/01/2015 Blood Pressure 1: 150/90 Code : 8480-6 Blood Pressure 1: 138/78 Code: 8480-6 BMI: 27.5 Code: 64978-4 Heart Rate 1: 73 bpm Height: 6' [...] data Encounters Encounter Performer Location Codes Date ([id number]) 56013 EST. PATIENT, LEVEL III Diagnosis: Cough[ICD10: R05] Diagnosis: Acute recurrent maxillary sinusitis[ICD10: J01.01] Meagan Goldman MD, [facility] CPT-4: 29881 05/05/2018 ([id number]) 11883 EST. PATIENT, LEVEL III Diagnosis: Gastro-esophageal reflux disease with esophagitis[ICD10: K21.0] Diagnosis: Pain in left shoulder[ICD10: M25.512] [facility] CPT-4: 90135 04/22/2018 ([id number]) 01795 EST. PATIENT, LEVEL III Diagnosis: Pain in left shoulder[ICD10: M25.512] Diagnosis: Other chest pain[ICD10: R07.89] [facility] CPT-4: 62787 03/29/2018 ([id number]) PREV VISIT EST AGE 40-64 Diagnosis: Encounter for general adult medical examination with abnormal findings[ICD10: Z00.01] [facility] CPT-4: 19198 03/11/2018 ([id number]) 57718 EST. PATIENT, LEVEL III Diagnosis: Low back pain[ICD10: M54.5] Diagnosis: Generalized anxiety disorder[ICD10: F41.1] [facility] CPT-4: 12631 01/07/2017 12852 EST. PATIENT, LEVEL III Diagnosis: Other chest pain[ICD10: R07.89] Diagnosis: Pleurodynia[ICD10: R07.81] [facility] CPT-4 : 15333 09/03/2016 ([id number]) 13294 EST. 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 Call if symptoms do not show improvement. 05/05/2018 Patient Education: Patient Medication Summary Completed [...] voltaren gel 04/22/2018 Appointment: Meagan Ritchie WPtel: [address] [place], [place] [phone] (15 min) Moderate 04/22/2018 Patient Education: Patient Medication Summary Completed 04/22/2018 Visit Plan: Left shoulder pain -chronic -patient has had multiple surgeries -not interested in PT at this time-recommend anti inflammatories as directed- rest -discussed PT vs imaging if symptoms persist. Patient verbalized understanding Chest pain -cardiac work up negative including cath -patient to see sausage maker tomorrow-suspect pain is radiating from shoulder-continue to monitor 03/29/2018 Appointment: Meagan Ritchie WPtel: [address] [place], [place] [phone] (30 min) Complex 03/29/2018 Patient Education: Patient [...] -regular exercise 03/11/2018 Appointment: Meagan Ritchie WPtel: [address] [place], [place] [phone] (30 min) Complex 03/11/2018 Patient Education: Patient Medication Summary Completed 03/11/2018 Care Plan: Referral Order SNOMED-CT : 540077215 Pending 03/11/2018 Visit Plan: Chronic back pain-follow [...] medications. 01/07/2017 Appointment: Meagan Ritchie WPtel: [phone] (30 min) Complex 01/07/2017 Patient Education: Patient Medication Summary Completed 01/07/2017 Visit Plan: Right rib pain - will give order for x-ray - The pt is to use prn antiinflammatories to manage acute pain. The patient is to call the office if the pain is worsening or does not improve. 09/03/2016 Appointment: [facility] [phone] [facility] [place] (30 min) Complex 09/03/2016 Patient [...] times daily x 7 days 11/12/2015 Appointment: SusiBraedeny WPtel: [phone] [facility] [place] [place] (15 min) Moderate 11/12/2015 Patient Education: Patient Medication Summary Completed 11/12/2015 Patient Education: Obesity Completed 11/12/2015 Care Plan: Referral Order SNOMED-CT : 306916841 Pending 11/12/2015 Visit Plan: Insomnia - Pt [...] up negative including cath -patient to see sausage maker tomorrow-suspect pain is radiating from shoulder-continue to [...]
--- OUTSIDE RECORDS SUMMARY | 2018-09-02 08:52 | XMS REPORT | CCD ---
Author Author Noemi Mercado Organization Irma Goldman MD, [facility] Address [address] [place] [address] Phone Care Team Providers Care Basketball Referee Name Role Phone PP Unavailable CCM Unavailable Summary Purpose Interface Exchange Insurance Providers Payer name Policy type / Coverage type Covered alliance party ID Effective Begin Date Effective End Date Blue Cross Blue Shield [facility] Blue Cross/Blue Shield [id number] Unknown Unknown Family history Mother Diagnosis Age At Onset Alcoholism Unknown Father Diagnosis Age At Onset Arthritis Unknown Skin cancer Unknown Alcoholism Unknown Brother Diagnosis Age At Onset Alcoholism Unknown Sister Diagnosis Age At Onset Alcoholism Unknown Social History Social History Element Codes Description Effective Dates Marital status Unknown 11/01/2015 Employment Unknown Currently employed [employer] 11/01/[address]: 597821540 Never smoker 11/01/[address]: 914328163 Never drinks alcohol 11/01/2015 Allergies, Adverse Reactions, Alerts Substance Reaction Codes Entered Date Inactivated Date Status * NO KNOWN DRUG ALLERGIES Unknown 11/01/2015 No Inactive Date Active Past Medical History Illness Codes Condition Status Onset Date Resolved Date Gastro-esophageal reflux disease with esophagitis ICD-9: 530.11 [...] Problems Condition Codes Effective Dates Condition Status Gastro-esophageal reflux disease with esophagitis ICD-9: 530.11 [...] Start Date Stop Date Status Fill Instructions Zithromax Z-Brian 250 mg tablet RxNorm: 680985 1 Tablet(s) PO UD 04/27/2018 05/01/2018 Active Zithromax Z-Brian 250 mg tablet RxNorm: 241404 1 Tablet(s) PO UD 04/27/2018 04/26/2018 Inactive Voltaren 1 % topical gel RxNorm: 089079 4 Gram(s) TOP QID 04/2205/21/2018 Active Protonix 40 mg tablet,delayed release RxNorm: 884921 1 Tablet(s) PO daily 04/22/2018 No Stop Date Active ibuprofen 800 mg tablet RxNorm: 806080 1 Tablet(s) PO TID as needed 03/29/2018 04/21/2018 Inactive tramadol 50 mg tablet RxNorm: 188008 1-2 Tablet(s) PO Q6 PRN 01/2018 No Stop Date Active Lexapro 10 mg tablet RxNorm: 263183 1 Tablet(s) PO QPM 201603/10/2018 Inactive cyclobenzaprine 5 mg tablet RxNorm: 410193 1/2 - 1 Tablet(s) PO TID as needed muscle spasms 11/01/2015 11/05/2015 Inactive prednisone 20 mg tablet RxNorm: 260808 2 Tablet(s) PO daily 05/201511/05/2015 Inactive ibuprofen 800 mg tablet RxNorm: 571894 1 Tablet(s) PO as needed No Start Date 03/28/2018 Inactive oxycodone-acetaminophen 5 mg-325 mg tablet RxNorm: 8969912 Tablet(s) PO as needed No Start Date 03/28/2018 Inactive Toprol XL 50 mg tablet,extended release RxNorm: 436218 1 Tablet(s) PO daily No Start Date 04/21/2018 Inactive Aspirin Low Dose 81 mg tablet,delayed release RxNorm: 912321 1 Tablet(s) PO daily No Start Date 04/21/2018 Inactive Cymbalta 20 mg capsule,delayed release RxNorm: 892615 1 Capsule(s) PO daily No Start Date 01/06/2017 Inactive oxycodone-acetaminophen 5 mg-325 mg tablet RxNorm: 1049296 Tablet(s) PO as needed No Start Date 11/01/2015 Inactive Medication Administered No Medication Administered data Immunizations No Immunization data Assessments Condition Codes Effective Dates Gastro-esophageal reflux disease with esophagitis ICD-10: K21.0 [...] Visit Reason For Visit Effective Dates Notes gastroesophageal reflux 04/22/2018 Hospital Follow Up 03/29/2018 [...] 29.3 pg 04/01/2016 Cbc With Differential Ord2 [place]% 10.3 % 04/01/2016 Cbc With Differential Ord2 [...] 2.58 K/ul 04/01/2016 Cbc With Differential Ord2 [place] ABS# 0.7 K/ul 04/01/2016 Cbc With Differential Ord2 Eos ABS# 0.2 K/ul 04/01/2016 Cbc With Differential Ord2 Baso ABS# 0.0 K/ul 04/01/2016 Tsh Ord6 hTSH II 2.06 uIU/mL 04/01/2016 Comp Metabolic Mtf961 NA 140 mEq/L 04/01/2016 Comp Metabolic Nxs269 K 4.7 mEq/L 04/01/2016 Comp Metabolic Ugb900 CL 105 mEq/L 04/01/2016 Comp Metabolic Fdk367 CO2 29.0 mEq/L 04/01/2016 Comp Metabolic Wmk054 ANION GAP 11 04/01/2016 Comp Metabolic Fdy119 GLUCOSE 99 mg/dL 04/01/2016 Comp Metabolic Nxp401 Creat 1.1 mg/dL 04/01/2016 Comp Metabolic Yek096 eGFR 76 ml/min/1.73m2 04/01/2016 Comp Metabolic Rjp939 BUN 17 mg/dL 04/01/2016 Comp Metabolic Cqo388 B/C Ratio 15.3 Ratio 04/01/2016 Comp Metabolic Nyj887 CALCIUM 9.5 mg/dL 04/01/2016 Comp Metabolic Iek806 ALK PHOS 73 U/L 04/01/2016 Comp Metabolic Sbt004 AST(SGOT) 35 U/L 04/01/2016 Comp Metabolic Gza525 ALT(SGPT) 74 U/L 04/01/2016 Comp Metabolic Nae798 BILI T 0.6 mg/dL 04/01/2016 Comp Metabolic Bti991 ALBUMIN 4.3 g/dL 04/01/2016 Comp Metabolic Zlz563 TPRO 6.5 g/dL 04/01/2016 Comp Metabolic Rxd801 GLOB 2.2 g/dL 04/01/2016 Comp Metabolic Mat766 A/G Ratio 1.9 Ratio 04/01/2016 Comp Metabolic Nsx912 Osmo 281 mOsmo 04/01/2016 Review of Systems [...] No Procedures data Vital Signs Date Vital 04/22/2018 Blood Pressure 1: 136/80 Code : 8480-6 BMI: 29.4 Code : 27049-1 Heart Rate 1 : 84 bpm Height: 6' SpO2: 97% Weight: 217 lbs 03/29/2018 Blood Pressure 1: 118/76 Code : 8480-6 BMI: 29.7 Code : 82056-1 Heart Rate 1 : 67 bpm Height: 6' SpO2: 97% Weight: 219 lbs 03/11/2018 Blood Pressure 1: 138/90 Code : 8480-6 BMI: 28.8 Code : 14147-3 Heart Rate 1 : 68 bpm Height: 6' SpO2: 92% Weight: 212 lbs 01/07/2017 Blood Pressure 1: 134/82 Code : 8480-6 BMI: 29.3 Code : 34936-3 Heart Rate 1 : 78 bpm Height: 6' SpO2: 98% Weight: 216 lbs 09/03/2016 Blood Pressure 1: 145/88 Code : 8480-6 BMI: 29.0 Code : 94917-6 Heart Rate 1 : 84 bpm Height: 6' SpO2: 97% Weight: 214 lbs 11/12/2015 Blood Pressure 1: 133/88 Code : 8480-6 BMI: 28.1 Code : 46231-0 Heart Rate 1 : 67 bpm Height: 6' SpO2: 97% Weight: 207 lbs 11/01/2015 Blood Pressure 1: 150/90 Code : 8480-6 Blood Pressure 1: 138/78 Code: 8480-6 BMI: 27.5 Code: 97497-5 Heart Rate 1: 73 bpm Height: 6' SpO2: 98% Weight: 203 lbs Functional Status No Functional Status data History of Present Illness Symptom Name Status Result Effective Date Notes _ Other: _ 2017 None Quality acute [...] data Encounters Encounter Performer Location Codes Date ( 79430 EST. PATIENT, LEVEL III Diagnosis: Gastro-esophageal reflux disease with esophagitis[ICD10: K21.0] Diagnosis: Pain in left shoulder[ICD10: M25.512] Meagan Goldman MD, [facility] CPT-4: 42378 04/22/2018 ([id number]) 73177 EST. PATIENT, LEVEL III Diagnosis: Pain in left shoulder[ICD10: M25.512] Diagnosis: Other chest pain[ICD10: R07.89] [facility] CPT-4: 54009 03/29/2018 ([id number]) PREV VISIT EST AGE 40-64 Diagnosis: Encounter for general adult medical examination with abnormal findings[ICD10: Z00.01] Meagan Goldman MD, [facility] CPT-4: 82943 03/11/2018 ([id number]) 85460 EST. PATIENT, LEVEL III Diagnosis: Low back pain[ICD10: M54.5] Diagnosis: Generalized anxiety disorder[ICD10: F41.1] [facility] CPT-4: 35231 01/07/2017 86602 EST. PATIENT, LEVEL III Diagnosis: Other chest pain[ICD10: R07.89] Diagnosis: Pleurodynia[ICD10: R07.81] [facility] CPT-4 : 47543 09/03/2016 ([id number]) 52033 EST. PATIENT, LEVEL III Diagnosis: Low back pain[ICD10: M54.5] Diagnosis: Other intervertebral disc displacement, lumbar region[ICD10: M51.26] [facility] CPT-4: 75051 11/12/2015 ([id number]) OFFICE VISIT, NEW - LEVEL 4 Diagnosis: Low back pain[ICD10: M54.5] Diagnosis: Other muscle spasm[ICD10: M62.838] Diagnosis: Localized enlarged lymph nodes[ICD10: R59.0] Diagnosis: Other insomnia[ICD10: G47.09] [facility] CPT-4 : 67234 11/01/2015 Plan of Care Planned Activity Notes Codes Status Date Visit Plan: Esophageal Reflux - the patient has been counseled against excessive intake of caffeine, spicy foods, peppermint, and cinnamon - all of which can exacerbate esophageal reflux. The patient is to take medications as prescribed and call the office if the symptoms are not improving. Left shoulder pain-rx for voltaren gel 04/22/2018 Appointment: Meagan Ritchie WPtel: [phone] (15 min) Moderate 04/22/2018 Patient Education: Patient Medication Summary Completed 04/22/2018 Visit Plan: Left shoulder pain -chronic -patient has had multiple surgeries -not interested in PT at this time-recommend anti inflammatories as directed- rest -discussed PT vs imaging if symptoms persist. Patient verbalized understanding Chest pain -cardiac work up negative including cath -patient to see mailing specialist tomorrow-suspect pain is radiating from shoulder-continue to monitor 03/29/2018 Appointment: [facility] Ritchie [facility]Ptel[facility] [phone] [phone] (30 min) Complex 03/29/2018 Patient Education: Patient [...] -regular exercise 03/11/2018 Appointment: Meagan Ritchie WPtel: [facility]5 [phone] (30 min) Complex 03/11/2018 Patient Education: Patient Medication Summary Completed 03/11/2018 Care Plan: Referral Order SNOMED-CT : [id number] Pending 03/11/2018 Visit Plan: Chronic back pain-follow [...] above medications. 01/07/2017 Appointment: Meagan Ritchie WPtel: [phone] [place] (30 min) Complex 01/07/2017 Patient Education: Patient Medication Summary Completed 01/07/2017 Visit Plan: Right rib pain - will give order for x-ray - The pt is to use prn antiinflammatories to manage acute pain. The patient is to call the office if the pain is worsening or does not improve. 09/03/2016 Appointment: Noemi Mercado WPtel: [facility] (30 min) Complex 09/03/2016 Patient Education: Patient [...] days 11/12/2015 [facility]ment: [facility] [phone] [facility] [place] (15 min) Moderate 11/12/2015 Patient Education: Patient Medication Summary Completed 11/12/2015 Patient Education: Obesity Completed 11/12/2015 Care Plan: Referral Order SNOMED-CT : 026682732 Pending 11/12/2015 Visit Plan: Insomnia - Pt [...] up negative including cath -patient to see mailing specialist tomorrow-suspect pain is radiating from shoulder-continue [...]
--- OUTSIDE RECORDS SUMMARY | 2018-09-02 08:52 | XMS REPORT | CCD ---
Author Author Noemi Mercado Organization Irma Goldman MD, [facility] Address [address] [place] [address] Phone Care Team Providers Care Chairman Of The Board Name Role Phone PP Unavailable CCM Unavailable Summary Purpose Interface Exchange Insurance Providers Payer name Policy type / Coverage type Covered democrat ID Effective Begin Date Effective End Date Blue Cross Blue Shield [facility] Blue Cross/Blue Shield [id number] Unknown Unknown Family history Mother Diagnosis Age At Onset Alcoholism Unknown Father Diagnosis Age At Onset Arthritis Unknown Skin cancer Unknown Alcoholism Unknown Brother Diagnosis Age At Onset Alcoholism Unknown Sister Diagnosis Age At Onset Alcoholism Unknown Social History Social History Element Codes Description Effective Dates Marital status Unknown 11/01/2015 Employment Unknown Currently employed [employer] 11/01/[address]: 296370282 Never smoker 11/01/[address]: 591055247 Never drinks alcohol 11/01/2015 Allergies, Adverse Reactions, [...] Instructions Zithromax Z-Brian 250 mg tablet RxNorm: 439386 1 Tablet(s) PO UD 04/27/2018 05/01/2018 Active Zithromax Z-Brian 250 mg tablet RxNorm: 205031 1 Tablet(s) PO UD 04/27/2018 04/26/2018 Inactive Voltaren 1 % topical gel RxNorm: 093345 4 Gram(s) TOP QID 04/2205/21/2018 Active Protonix 40 mg tablet,delayed release RxNorm: 774913 1 Tablet(s) PO daily 04/22/2018 No Stop Date Active ibuprofen 800 mg tablet RxNorm: 057648 1 Tablet(s) PO TID as needed 03/29/2018 04/21/2018 Inactive tramadol 50 mg tablet RxNorm: 951097 1-2 Tablet(s) PO Q6 PRN 01/2018 No Stop Date Active Lexapro 10 mg tablet RxNorm: 978786 1 Tablet(s) PO QPM 201603/10/2018 Inactive cyclobenzaprine 5 mg tablet RxNorm: 613772 1/2 - 1 Tablet(s) PO TID as needed muscle spasms 11/01/2015 11/05/2015 Inactive prednisone 20 mg tablet RxNorm: 547474 2 Tablet(s) PO daily 05/201511/05/2015 Inactive ibuprofen 800 mg tablet RxNorm: 415424 1 Tablet(s) PO as needed No Start Date 03/28/2018 Inactive oxycodone-acetaminophen 5 mg-325 mg tablet RxNorm: 3009088 Tablet(s) PO as needed No Start Date 03/28/2018 Inactive Toprol XL 50 mg tablet,extended release RxNorm: 223677 1 Tablet(s) PO daily No Start Date 04/21/2018 Inactive Aspirin Low Dose 81 mg tablet,delayed release RxNorm: 787882 1 Tablet(s) PO daily No Start Date 04/21/2018 Inactive Cymbalta 20 mg capsule,delayed release RxNorm: 990823 1 Capsule(s) PO daily No Start Date 01/06/2017 Inactive oxycodone-acetaminophen 5 mg-325 mg tablet RxNorm: 0041579 Tablet(s) PO as needed No Start Date [...] 29.3 pg 04/01/2016 Cbc With Differential Ord2 [place]% 10.3 % 04/01/2016 Cbc With Differential Ord2 [...] 2.58 K/ul 04/01/2016 Cbc With Differential Ord2 [place] ABS# 0.7 K/ul 04/01/2016 Cbc With Differential Ord2 Eos ABS# 0.2 K/ul 04/01/2016 Cbc With Differential Ord2 Baso ABS# 0.0 K/ul 04/01/2016 Tsh Ord6 hTSH II 2.06 uIU/mL 04/01/2016 Comp Metabolic Efa718 NA 140 mEq/L 04/01/2016 Comp Metabolic Jvk574 K 4.7 mEq/L 04/01/2016 Comp Metabolic Vsg865 CL 105 mEq/L 04/01/2016 Comp Metabolic Syu801 CO2 29.0 mEq/L 04/01/2016 Comp Metabolic Pan441 ANION GAP 11 04/01/2016 Comp Metabolic Laz946 GLUCOSE 99 mg/dL 04/01/2016 Comp Metabolic Yns113 Creat 1.1 mg/dL 04/01/2016 Comp Metabolic Pzw565 eGFR 76 ml/min/1.73m2 04/01/2016 Comp Metabolic Bkc923 BUN 17 mg/dL 04/01/2016 Comp Metabolic Jjm491 B/C Ratio 15.3 Ratio 04/01/2016 Comp Metabolic Vdt638 CALCIUM 9.5 mg/dL 04/01/2016 Comp Metabolic Dbr189 ALK PHOS 73 U/L 04/01/2016 Comp Metabolic Xqs939 AST(SGOT) 35 U/L 04/01/2016 Comp Metabolic Xix935 ALT(SGPT) 74 U/L 04/01/2016 Comp Metabolic Rit471 BILI T 0.6 mg/dL 04/01/2016 Comp Metabolic Yvs842 ALBUMIN 4.3 g/dL 04/01/2016 Comp Metabolic Dsn987 TPRO 6.5 g/dL 04/01/2016 Comp Metabolic Zmr880 GLOB 2.2 g/dL 04/01/2016 Comp Metabolic Ghp237 A/G Ratio 1.9 Ratio 04/01/2016 Comp Metabolic Kfb613 Osmo 281 mOsmo 04/01/2016 Review of Systems [...] Code : 8480-6 BMI: 29.4 Code : 40940-8 Heart Rate 1 : 84 bpm Height: 6' SpO2: 97% Weight: 217 lbs 03/29/2018 Blood Pressure 1: 118/76 Code : 8480-6 BMI: 29.7 Code : 67407-2 Heart Rate 1 : 67 bpm Height: 6' SpO2: 97% Weight: 219 lbs 03/11/2018 Blood Pressure 1: 138/90 Code : 8480-6 BMI: 28.8 Code : 37786-1 Heart Rate 1 : 68 bpm Height: 6' SpO2: 92% Weight: 212 lbs 01/07/2017 Blood Pressure 1: 134/82 Code : 8480-6 BMI: 29.3 Code : 47967-7 Heart Rate 1 : 78 bpm Height: 6' SpO2: 98% Weight: 216 lbs 09/03/2016 Blood Pressure 1: 145/88 Code : 8480-6 BMI: 29.0 Code : 59015-0 Heart Rate 1 : 84 bpm Height: 6' SpO2: 97% Weight: 214 lbs 11/12/2015 Blood Pressure 1: 133/88 Code : 8480-6 BMI: 28.1 Code : 40996-3 Heart Rate 1 : 67 bpm Height: 6' SpO2: 97% Weight: 207 lbs 11/01/2015 Blood Pressure 1: 150/90 Code : 8480-6 Blood Pressure 1: 138/78 Code: 8480-6 BMI: 27.5 Code: 72396-2 Heart Rate 1: 73 bpm Height: 6' [...] Encounters Encounter Performer Location Codes Date ( 89260 EST. PATIENT, LEVEL III Diagnosis: Gastro-esophageal reflux disease with esophagitis[ICD10: K21.0] Diagnosis: Pain in left shoulder[ICD10: M25.512] Meagan Goldman MD, [facility] CPT-4: 24794 04/22/2018 ([id number]) 01658 EST. PATIENT, LEVEL III Diagnosis: Pain in left shoulder[ICD10: M25.512] Diagnosis: Other chest pain[ICD10: R07.89] [facility] CPT-4: 55891 03/29/2018 ([id number]) PREV VISIT EST AGE 40-64 Diagnosis: Encounter for general adult medical examination with abnormal findings[ICD10: Z00.01] Meagan Goldman MD, [facility] CPT-4: 66503 03/11/2018 ([id number]) 68655 EST. PATIENT, LEVEL III Diagnosis: Low back pain[ICD10: M54.5] Diagnosis: Generalized anxiety disorder[ICD10: F41.1] [facility] CPT-4: 46830 01/07/2017 71881 EST. PATIENT, LEVEL III Diagnosis: Other chest pain[ICD10: R07.89] Diagnosis: Pleurodynia[ICD10: R07.81] [facility] CPT-4 : 03421 09/03/2016 ([id number]) 28112 EST. PATIENT, LEVEL III Diagnosis: Low back pain[ICD10: M54.5] Diagnosis: Other intervertebral disc displacement, lumbar region[ICD10: M51.26] [facility] CPT-4: 86818 11/12/2015 ([id number]) OFFICE VISIT, NEW - LEVEL 4 Diagnosis: Low back pain[ICD10: M54.5] Diagnosis: Other muscle spasm[ICD10: M62.838] Diagnosis: Localized enlarged lymph nodes[ICD10: R59.0] Diagnosis: Other insomnia[ICD10: G47.09] [facility] CPT-4 : 56650 11/01/2015 Plan of Care Planned Activity Notes [...] voltaren gel 04/22/2018 Appointment: Meagan Ritchie WPtel[phone] (15 min) Moderate 04/22/2018 Patient Education: Patient Medication Summary Completed 04/22/2018 Visit Plan: Left shoulder pain -chronic -patient has had multiple surgeries -not interested in PT at this time-recommend anti inflammatories as directed- rest -discussed PT vs imaging if symptoms persist. Patient verbalized understanding Chest pain -cardiac work up negative including cath -patient to see medical coordinator pesticide use tomorrow-suspect pain is radiating from shoulder-continue to monitor 03/29/2018 Appointment: [facility]itchie [facility]el[facility] [phone] [phone] (30 min) Complex 03/29/2018 Patient Education: Patient [...] -regular exercise 03/11/2018 Appointment: Meagan Ritchie WPtel: [phone] (30 min) Complex 03/11/2018 Patient Education: Patient Medication Summary Completed 03/11/2018 Care Plan: Referral Order SNOMED-CT : [id number] Pending 03/11/2018 Visit Plan: Chronic back pain-follow [...] above medications. 01/07/2017 Appointment: Meagan Ritchie WPtel: [phone] [place] (30 min) Complex 01/07/2017 Patient Education: Patient Medication Summary Completed 01/07/2017 Visit Plan: Right rib pain - will give order for x-ray - The pt is to use prn antiinflammatories to manage acute pain. The patient is to call the office if the pain is worsening or does not improve. 09/03/2016 Appointment: Noemi Mercado WPtel: [phone] (30 min) Complex 09/03/2016 Patient Education: Patient [...] days 11/12/2015 App[facility]ment: [facility] [phone] [facility] [place] (15 min) Moderate 11/12/2015 Patient Education: Patient Medication Summary Completed 11/12/2015 Patient Education: Obesity Completed 11/12/2015 Care Plan: Referral Order SNOMED-CT : [id number] Pending 11/12/2015 Visit Plan: Insomnia - Pt [...] up negative including cath -patient to see medical coordinator pesticide use tomorrow-suspect pain is radiating from shoulder-continue to [...]
--- OUTSIDE RECORDS SUMMARY | 2018-09-02 08:53 | XMS REPORT | CCD ---
Author Author Noemi Mercado Organization Irma Goldman MD, [facility] Address [address] [place] [address] Phone Care Team Providers Care Asset Recovery Specialist Name Role Phone PP Unavailable CCM Unavailable Summary Purpose Interface Exchange Insurance Providers Payer name Policy type / Coverage type Covered libertarian ID Effective Begin Date Effective End Date Blue Cross Blue Shield [facility] Blue Cross/Blue Shield [id number] Unknown Unknown Family history Mother Diagnosis Age At Onset Alcoholism Unknown Father Diagnosis Age At Onset Arthritis Unknown Skin cancer Unknown Alcoholism Unknown Brother Diagnosis Age At Onset Alcoholism Unknown Sister Diagnosis Age At Onset Alcoholism Unknown Social History Social History Element Codes Description Effective Dates Marital status Unknown 11/01/2015 Employment Unknown Currently employed [employer] 11/01/[address]: 000201058 Never smoker 11/01/[address]: 675100169 Never drinks alcohol 11/01/2015 Allergies, Adverse Reactions, [...] Instructions Zithromax Z-Brian 250 mg tablet RxNorm: 136231 1 Tablet(s) PO UD 04/27/2018 05/01/2018 Active Zithromax Z-Brian 250 mg tablet RxNorm: 737176 1 Tablet(s) PO UD 04/27/2018 04/26/2018 Inactive Voltaren 1 % topical gel RxNorm: 382454 4 Gram(s) TOP QID 04/2205/21/2018 Active Protonix 40 mg tablet,delayed release RxNorm: 153390 1 Tablet(s) PO daily 04/22/2018 No Stop Date Active ibuprofen 800 mg tablet RxNorm: 741578 1 Tablet(s) PO TID as needed 03/29/2018 04/21/2018 Inactive tramadol 50 mg tablet RxNorm: 903615 1-2 Tablet(s) PO Q6 PRN 01/2018 No Stop Date Active Lexapro 10 mg tablet RxNorm: 564075 1 Tablet(s) PO QPM 201603/10/2018 Inactive cyclobenzaprine 5 mg tablet RxNorm: 234239 1/2 - 1 Tablet(s) PO TID as needed muscle spasms 11/01/2015 11/05/2015 Inactive prednisone 20 mg tablet RxNorm: 720512 2 Tablet(s) PO daily 05/201511/05/2015 Inactive ibuprofen 800 mg tablet RxNorm: 918462 1 Tablet(s) PO as needed No Start Date 03/28/2018 Inactive oxycodone-acetaminophen 5 mg-325 mg tablet RxNorm: 1820504 Tablet(s) PO as needed No Start Date 03/28/2018 Inactive Toprol XL 50 mg tablet,extended release RxNorm: 472246 1 Tablet(s) PO daily No Start Date 04/21/2018 Inactive Aspirin Low Dose 81 mg tablet,delayed release RxNorm: 039666 1 Tablet(s) PO daily No Start Date 04/21/2018 Inactive Cymbalta 20 mg capsule,delayed release RxNorm: 592505 1 Capsule(s) PO daily No Start Date 01/06/2017 Inactive oxycodone-acetaminophen 5 mg-325 mg tablet RxNorm: 5637808 Tablet(s) PO as needed No Start Date [...] 29.3 pg 04/01/2016 Cbc With Differential Ord2 [place]% 10.3 % 04/01/2016 Cbc With Differential Ord2 [...] 2.58 K/ul 04/01/2016 Cbc With Differential Ord2 [place] ABS# 0.7 K/ul 04/01/2016 Cbc With Differential Ord2 Eos ABS# 0.2 K/ul 04/01/2016 Cbc With Differential Ord2 Baso ABS# 0.0 K/ul 04/01/2016 Tsh Ord6 hTSH II 2.06 uIU/mL 04/01/2016 Comp Metabolic Zuc319 NA 140 mEq/L 04/01/2016 Comp Metabolic Fny275 K 4.7 mEq/L 04/01/2016 Comp Metabolic Tqm253 CL 105 mEq/L 04/01/2016 Comp Metabolic Ulj315 CO2 29.0 mEq/L 04/01/2016 Comp Metabolic Mxp870 ANION GAP 11 04/01/2016 Comp Metabolic Xcl264 GLUCOSE 99 mg/dL 04/01/2016 Comp Metabolic Izy008 Creat 1.1 mg/dL 04/01/2016 Comp Metabolic Tlz348 eGFR 76 ml/min/1.73m2 04/01/2016 Comp Metabolic Amn787 BUN 17 mg/dL 04/01/2016 Comp Metabolic Baq459 B/C Ratio 15.3 Ratio 04/01/2016 Comp Metabolic Weo069 CALCIUM 9.5 mg/dL 04/01/2016 Comp Metabolic Sun872 ALK PHOS 73 U/L 04/01/2016 Comp Metabolic Wpm469 AST(SGOT) 35 U/L 04/01/2016 Comp Metabolic Yuz764 ALT(SGPT) 74 U/L 04/01/2016 Comp Metabolic Hdl051 BILI T 0.6 mg/dL 04/01/2016 Comp Metabolic Cvw485 ALBUMIN 4.3 g/dL 04/01/2016 Comp Metabolic Oor253 TPRO 6.5 g/dL 04/01/2016 Comp Metabolic Xkf692 GLOB 2.2 g/dL 04/01/2016 Comp Metabolic Fpk970 A/G Ratio 1.9 Ratio 04/01/2016 Comp Metabolic Gqp068 Osmo 281 mOsmo 04/01/2016 Review of Systems [...] Code : 8480-6 BMI: 29.7 Code : 81720-4 Heart Rate 1 : 67 bpm Height: 6' SpO2: 97% Weight: 219 lbs 03/11/2018 Blood Pressure 1: 138/90 Code : 8480-6 BMI: 28.8 Code : 86344-8 Heart Rate 1 : 68 bpm Height: 6' SpO2: 92% Weight: 212 lbs 01/07/2017 Blood Pressure 1: 134/82 Code : 8480-6 BMI: 29.3 Code : 87300-2 Heart Rate 1 : 78 bpm Height: 6' SpO2: 98% Weight: 216 lbs 09/03/2016 Blood Pressure 1: 145/88 Code : 8480-6 BMI: 29.0 Code : 72591-7 Heart Rate 1 : 84 bpm Height: 6' SpO2: 97% Weight: 214 lbs 11/12/2015 Blood Pressure 1: 133/88 Code : 8480-6 BMI: 28.1 Code : 16878-5 Heart Rate 1 : 67 bpm Height: 6' SpO2: 97% Weight: 207 lbs 11/01/2015 Blood Pressure 1: 150/90 Code : 8480-6 Blood Pressure 1: 138/78 Code: 8480-6 BMI: 27.5 Code: 59108-7 Heart Rate 1: 73 bpm Height: 6' [...] Encounters Encounter Performer Location Codes Date ( 69427 EST. PATIENT, LEVEL III Diagnosis: Pain in left shoulder[ICD10: M25.512] Diagnosis: Other chest pain[ICD10: R07.89] [facility] CPT-4: 20261 03/29/2018 ([id number]) PREV VISIT EST AGE 40-64 Diagnosis: Encounter for general adult medical examination with abnormal findings[ICD10: Z00.01] [facility] CPT-4: 52508 03/11/2018 ([id number]) 81696 EST. PATIENT, LEVEL III Diagnosis: Low back pain[ICD10: M54.5] Diagnosis: Generalized anxiety disorder[ICD10: F41.1] [facility] CPT-4: 27065 01/07/2017 17582 EST. PATIENT, LEVEL III Diagnosis: Other chest pain[ICD10: R07.89] Diagnosis: Pleurodynia[ICD10: R07.81] [facility] CPT-4 : 75339 09/03/2016 ([id number]) 28591 EST. PATIENT, LEVEL III Diagnosis: Low back pain[ICD10: M54.5] Diagnosis: Other intervertebral disc displacement, lumbar region[ICD10: M51.26] [facility] CPT-4: 52706 11/12/2015 ([id number]) OFFICE VISIT, NEW - LEVEL 4 Diagnosis: Low back pain[ICD10: M54.5] Diagnosis: Other muscle spasm[ICD10: M62.838] Diagnosis: Localized enlarged lymph nodes[ICD10: R59.0] Diagnosis: Other insomnia[ICD10: G47.09] [facility] CPT-4 : 06245 11/01/2015 Plan of Care Planned Activity Notes Codes Status Date Appointment: Meagan Ritchie WPtel: [address] [place], [place] [phone] (15 min) Moderate 04/22/2018 Visit Plan: Left shoulder pain -chronic -patient has had multiple surgeries -not interested in PT at this time-recommend anti inflammatories as directed- rest -discussed PT vs imaging if symptoms persist. Patient verbalized understanding Chest pain -cardiac work up negative including cath -patient to see lab head tomorrow-suspect pain is radiating from shoulder-continue to monitor 03/29/2018 Appointment: Meagan Ritchie WPtel: [address] [place], [place] [phone] [place] [address] (30 min) Complex 03/29/2018 Patient Education: Patient [...] exercise 03/11/2018 Appointment: Meagan Ritchie WPtel: [address] [place], [place] [phone] (30 min) Complex 03/11/2018 Patient Education: Patient Medication Summary Completed 03/11/2018 Care Plan: Referral Order SNOMED-CT : 457424558 Pending 03/11/2018 Visit Plan: Chronic back pain-follow [...] medications. 01/07/2017 Appointment: Meagan Ritchie WPtel: [phone] (30 min) Complex 01/07/2017 Patient Education: Patient Medication Summary Completed 01/07/2017 Visit Plan: Right rib pain - will give order for x-ray - The pt is to use prn antiinflammatories to manage acute pain. The patient is to call the office if the pain is worsening or does not improve. 09/03/2016 Appointment: [facility] [phone] [facility] (30 min) Complex 09/03/2016 Patient Education: Patient [...] days 11/12/2015 Appointment: [facility]el[facility] [phone] [facility] [place] (15 min) Moderate 11/12/2015 Patient Education: Patient Medication Summary Completed 11/12/2015 Patient Education: Obesity Completed 11/12/2015 Care Plan: Referral Order SNOMED-CT : 898409344 Pending 11/12/2015 Visit Plan: Insomnia - Pt [...] up negative including cath -patient to see lab head tomorrow-suspect pain is radiating from shoulder-continue to [...]
--- OUTSIDE RECORDS SUMMARY | 2018-09-02 08:55 | XMS REPORT | Continuity of Care Document ---
Author Organization Unknown Address Unknown Allergies Active Description Code Type Severity Reaction Onset Reported/Identified Relationship to Patient Clinical Status Yes NKANo Known Allergies NKA Miscellaneous Allergy Unknown N/A 03/28/2018 Yes No Known Drug Allergies [id number] Drug Allergy Unknown N/A 04/12/2018 Medications There [...] Rodas Ot 592.1 CALCULUS OF URETER 03/14/2013 GUCCI RIVERA, HENRRY Rodas Ot 724.2 LUMBAGO 03/21/2013 FERN RIVERA, TRISHA Rodas Ot 592.1 CALCULUS OF URETER 05/02/2014 NEVILLE RIVERA, ANDREW Hodge Ot 723.4 06/01/2014 Ot 214.9 06/01/2014 Ot 550.90 06/01/2014 Ot V72.63 06/01/2014 Ot V74.8 06/01/2014 Ot 789.04 06/01/2014 TRISHA SHIRLEY MD Ot 592.9 06/01/2014 NEVILLE RIVERA, ANDREW Hodge Ot 723.4 06/01/2014 NEVILLE RIVERA, ANDREW Hodge Ot 723.4 10/20/2014 LEENA SEYMOUR MD Ot [...] MYA THAYER APRN Ot R07.81 PLEURODYNIA 08/12/2017 ROMULO HORNE DO Ot R07.9 CHEST PAIN, [...] MYA THAYER APRN Ot R07.81 PLEURODYNIA 08/12/2017 ROMULO HORNE DO Ot R07.9 CHEST PAIN, [...] HORNE DOI Ot R07.9 CHEST PAIN, UNSPECIFIED 01/11/2018 FERN RIVERA, TRISHA A Ot 592.9 URINARY CALCULUS NOS 01/11/2018 NEVILLE RIVERA, ANDREW Hodge Ot 723.4 BRACHIAL NEURITIS NOS 01/11/2018 NEVILLE RIVERA, ANDREW Hodge Ot 723.4 BRACHIAL NEURITIS NOS 01/11/2018 NEVILLE [...] PAIN 03/27/2018 DERIK WARD MD Ot Z79.82 INTERMEDIATE (CURRENT) USE OF ASPIRIN 03/27/2018 DERIK WARD MD Ot Z87.442 PERSONAL HISTORY OF URINARY CALCULI 03/27/2018 DERIK WARD MD Ot Z90.89 ACQUIRED ABSENCE OF OTHER ORGANS 03/27/2018 DERIK WARD MD Ot Z95.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 03/29/2018 EDRIK WARD MD Ot G43.909 MIGRAINE, UNSP, NOT INTRACTABLE, WITHOUT 03/29/2018 DERIK WARD MD Ot R07.89 OTHER CHEST PAIN 03/29/2018 DERIK WARD MD Ot Z79.82 INTERMEDIATE (CURRENT) USE OF ASPIRIN 03/29/2018 ED RIVERA, DERIK Lynn Ot Z87.442 PERSONAL HISTORY OF URINARY CALCULI 03/29/2018 ED RIVERA, DERIK Lynn Ot Z90.89 ACQUIRED ABSENCE OF OTHER ORGANS 03/29/2018 DERIK WARD MD Ot Z95.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 04/07/2018 ANGEL RIVERA FAC, ALI FACP CCDS Ot I10 ESSENTIAL (PRIMARY) HYPERTENSION 04/07/2018 ANGEL RIVERA FAC, ALI FACP CCDS Ot J98.11 ATELECTASIS 04/07/2018 ANGEL RIVERA FAC, ALI FACP CCDS Ot R91.1 SOLITARY PULMONARY NODULE 04/12/2018 SHARLA RIVERA, SRAVAN Larsen Ot Z01.818 ENCOUNTER FOR OTHER PREPROCEDURAL EXAMIN 04/13/2018 SHARLA RIVERA, SRAVAN Larsen Ot Z01.818 ENCOUNTER FOR OTHER PREPROCEDURAL EXAMIN 04/18/2018 SHARLA RIVERA, SRAVAN Larsen Ot Z01.818 ENCOUNTER FOR OTHER PREPROCEDURAL EXAMIN 04/18/2018 SHARLA RIVERA, SRAVAN M Ot K20.9 ESOPHAGITIS, UNSPECIFIED 04/18/2018 SHARLA RIVERA, SRAVAN Larsen Ot K25.9 GASTRIC ULCER, UNSP ACUTE OR CHRONIC, 04/18/2018 SHARLA RIVERA, SRAVAN Larsen Ot K26.9 DUODENAL ULCER, UNSP ACUTE OR CHRONIC 04/21/2018 SHARLA RIVERA, SRAVAN Larsen Ot K20.9 ESOPHAGITIS, UNSPECIFIED 04/21/2018 SHARLA RIVERA, SRAVAN Larsen Ot K25.9 GASTRIC ULCER, UNSP ACUTE OR CHRONIC, 04/21/2018 SHARLA RIVERA, SRAVAN M Ot K26.9 DUODENAL ULCER, UNSP ACUTE OR CHRONIC 04/27/2018 SHERLY AGUILAR PUBLIC HEALTH SANITARIAN TECHNICIAN Ot G47.10 HYPERSOMNIA, UNSPECIFIED 04/27/2018 SHERLY AGUILAR PUBLIC HEALTH SANITARIAN TECHNICIAN Ot R06.02 SHORTNESS OF BREATH 04/27/2018 SHERLY AGUILAR PUBLIC HEALTH SANITARIAN TECHNICIAN Ot R91.1 SOLITARY PULMONARY NODULE 04/27/2018 SHERLY AGUILAR PUBLIC HEALTH SANITARIAN TECHNICIAN Ot R91.8 OTHER NONSPECIFIC ABNORMAL FINDING OF NIK 05/13/2018 SHERLY AGUILAR PUBLIC HEALTH SANITARIAN TECHNICIAN Ot G47.10 HYPERSOMNIA, UNSPECIFIED 05/13/2018 SHERLY AGUILAR PUBLIC HEALTH SANITARIAN TECHNICIAN Ot R06.02 SHORTNESS OF BREATH 05/13/2018 SHERLY AGUILAR PUBLIC HEALTH SANITARIAN TECHNICIAN Ot R91.1 SOLITARY PULMONARY NODULE 05/13/2018 SHERLY AGUILAR PUBLIC HEALTH SANITARIAN TECHNICIAN Ot R91.8 OTHER NONSPECIFIC ABNORMAL FINDING OF NIK 06/15/2018 SHERLY AGUILAR PUBLIC HEALTH SANITARIAN TECHNICIAN Ot G47.10 HYPERSOMNIA, UNSPECIFIED 06/15/2018 SHERLY AGUILAR PUBLIC HEALTH SANITARIAN TECHNICIAN Ot R06.02 SHORTNESS OF BREATH 06/15/2018 SHERLY AGUILAR PUBLIC HEALTH SANITARIAN TECHNICIAN Ot R91.1 SOLITARY PULMONARY NODULE 06/15/2018 SHERLY AGUILAR PUBLIC HEALTH SANITARIAN TECHNICIAN Ot R91.8 OTHER NONSPECIFIC ABNORMAL FINDING OF NIK 07/18/2018 FERN RIVERA, TRISHA A Ot 592.9 URINARY CALCULUS NOS 07/18/2018 NEVILLE RIVERA, ANDREW P Ot 723.4 BRACHIAL NEURITIS NOS 07/18/2018 NEVILLE RIVERA, ANDREW P Ot 723.4 BRACHIAL NEURITIS NOS 07/18/2018 NEVILLE RIVERA, ANDREW P Ot M54.16 RADICULOPATHY, LUMBAR REGION 07/18/2018 MYA THAYER PUBLIC HEALTH SANITARIAN TECHNICIAN Ot R07.81 PLEURODYNIA 07/18/2018 ROMULO HORNE DO Ot R07.9 CHEST PAIN, UNSPECIFIED 07/18/2018 ANGEL RIVERA FACC, ALI FACP CCDS Ot I10 ESSENTIAL (PRIMARY) HYPERTENSION 07/18/2018 ANGEL RIVERA FACC, ALI FACP CCDS Ot J98.11 ATELECTASIS 07/18/2018 ANGEL RIVERA FACC, ALI FACP CCDS Ot R91.1 SOLITARY PULMONARY NODULE 07/18/2018 SHERLY AGUILAR PUBLIC HEALTH SANITARIAN TECHNICIAN Ot G47.10 HYPERSOMNIA, UNSPECIFIED 07/18/2018 SHERLY AGUILAR PUBLIC HEALTH SANITARIAN TECHNICIAN Ot R06.02 SHORTNESS OF BREATH 07/18/2018 SHERLY AGUILAR PUBLIC HEALTH SANITARIAN TECHNICIAN Ot R91.1 SOLITARY PULMONARY NODULE 07/18/2018 SHERLY AGUILAR PUBLIC HEALTH SANITARIAN TECHNICIAN Ot R91.8 OTHER NONSPECIFIC ABNORMAL FINDING OF NIK Procedures There is no data. Results Test [...] Status Pt. Type Provider Facility Loc./Unit Complaint [id number] 05/11/2018 09:24:00 05/11/2018 23:59:59 CLS Outpatient SHERLY AGUILAR APRN [facility] RT SUSPECTED SLEEP APNEA,SOB,LUNG NODULE [id number] 04/27/2018 09:00:00 04/27/2018 09:15:00 DIS Outpatient SHERLY AGUILAR APRN [facility] SLEEP SUSPECTED CARMEN, HYPERSOMNIA [id number] 04/18/2018 12:13:00 04/18/2018 16:00:00 DIS Outpatient SRAVAN MAGDALENO MD [facility] ENDO DYSPHAGIA/ EPIGASTRIC PAIN [id number] 04/12/2018 08:23:00 04/12/2018 14:29:00 DIS Outpatient SRAVAN MAGDALENO MD [facility] PREOP EGD [id number] 04/06/2018 16:53:00 04/06/2018 23:59:59 CLS Outpatient TANVIR ORTIZ MD, FACC, FACP CCDS [facility] RAD CHEST DISCOMFORT,SOB,HYPERTENSION [id number] 03/30/2018 14:23:00 03/30/2018 23:59:59 CLS Preadmit TANVIR ORTIZ MD, FACC, FACP CCDS [facility] CARD CHEST DISCOMFORT,SOB,HYPERTENSION [id number] 03/27/2018 20:08:00 03/27/2018 21:48:00 DIS Emergency DERIK WARD MD [facility] ER HAD HEART CATH TUES AND HAVING CHEST PAIN [id number] 03/22/2018 09:46:00 03/22/2018 16:40:00 DIS Outpatient ANGEL RIVERA FACCTANVIR FACP CCDS [facility] CATH ANGINA,SOB, DIZZINESS,PALIPITATIONS [id number] 04/09/2017 06:41:00 04/09/2017 23:59:59 CLS Outpatient COLEEN REDDY ROMULO [facility] CARD CHEST PAIN [id number] 09/04/2016 08:22:00 09/04/2016 23:59:59 CLS Outpatient MYA THAYER APRN [facility] RAD RIB/CHEST PAIN [id number] 06/18/2015 11:57:00 06/18/2015 23:59:59 CLS Outpatient NADREW LOZADA MD [facility] RAD LUMBAR RADICULOPATHY [id number] 10/20/2014 13:42:00 10/20/2014 15:27:00 DIS Emergency LEENA SEYMOUR MD [facility] ER ABD AND LOWER BACK PAIN [id number] 04/09/2014 16:06:00 04/09/2014 23:59:59 CLS Outpatient ANDREW LOZADA MD [facility] RAD L C5 RADICULOPATHY [id number] 02/28/2014 10:52:00 02/28/2014 23:59:59 CLS Outpatient ANDREW LOZADA MD [facility] RAD L C5 RADICULAPATHY [id number] 03/27/2013 13:47:00 03/27/2013 23:59:59 CLS Outpatient TRISHA SHIRLEY MD [facility] LAB STONE [id number] 03/21/2013 05:54:00 03/21/2013 10:15:00 DIS Outpatient TRISHA SHIRLEY MD [facility] SDC LEFT STONE [id number] 03/13/2013 22:51:00 03/14/2013 00:29:00 DIS Emergency HENRRY DUCKWORTH MD [facility] ER KIDNEY STONES [id number] 10/06/2018 10:15:00 PEN Preadmit SHERLY AGUILAR APRN [facility] RAD ABN CT SCAN OF LUNG,SOB,LUNG NODULE [id number] 04/29/2012 12:01:00 Document Registration [id number] 04/13/2012 08:42:00 Document Registration [id number] 02/11/2012 05:32:00 Document Registration [id number] 02/08/2012 12:04:00 Document Registration [id number] 03/08/2014 15:08:08 03/08/2014 15:08:09 DIS Outpatient [id number] 03/11/2017 09:56:11 03/11/2017 23:59:59 CLS Outpatient
--- NOTE | 2018-09-02 09:11 | Progress Note-Pre Operative ---
Pre-Operative Progress Note H&P Reviewed The H&P was reviewed, patient examined and no changes noted. Date Seen by Provider: September 02, 2018 Time Seen by Provider: 09:10 Date H&P Reviewed: September 02, 2018 Time H&P Reviewed: 09:10 Pre-Operative Diagnosis: lipomas right chest, luq abdomen, right thigh RUFINA LOPEZ DO September 02, 2018 09:11
[2018-09-02] MEDS ORDERED: proPOfol 200 MG/20 ML (DIPRIVAN) VIAL IV ONE ×2 (09:45→10:37)
[2018-09-02] MEDS ORDERED: SEVOFLURANE (ULTANE) 15 ML INHAL SOLN ONE ×3 (09:45→11:09)
[2018-09-02] MEDS ORDERED: LIDOCAINE PF 2% 5 ML (XYLOCAINE) VIAL ONE (09:45)
[2018-09-02] MEDS ORDERED: fentaNYL INJECTION 100 MCG/2 ML AMP ONE ×2 (09:46→11:03)
[2018-09-02] MEDS ORDERED: MIDAZOLAM 2 MG/2 ML (VERSED) VIAL ONE (09:46)
[2018-09-02] MEDS ORDERED: DEXAMETHASONE 10 MG/ML (DECADRON) 1 ML VIAL ONE (09:49)
[2018-09-02] MEDS ORDERED: ONDANSETRON 4 MG/2 ML (SDV) Z0FRAN ONE (09:49)
[2018-09-02] MEDS ORDERED: LIDOCAINE 1% INJ 20 ML 20 ML VIAL ONE (09:52)
[2018-09-02] MEDS ORDERED: BUP/EPI 0.5% 1:200,000 (SENSORCAINE) 30 ML VIAL ONE (09:53)
[2018-09-02] MEDS ORDERED: LACTATED RINGERS 1,000 ML IV PRN (09:56)
[2018-09-02] MEDS ORDERED: ceFAZolin 2 GM IV Premixed 50 ML IV ONE (10:00)
--- NOTE | 2018-09-02 11:29 | Progress Note-Post Operative ---
Post-Operative Progess Note Surgeon (s)/Timber Cruiser (s) Surgeon RUFINA LOPEZ DO Timber Cruiser: NA Pre-Operative Diagnosis lipomas right chest, luq abdomen, right thigh Post-Operative Diagnosis SAME Procedure & Operative Findings Date of Procedure 09/02/18 Procedure Performed/Findings EXCISION OF LIPOMAS Anesthesia Type GEN Estimated Blood Loss Estimated blood loss (mL): MIN Specimens/Packing Specimens Removed LIPOMAS RUFINA LOPEZ DO September 02, 2018 11:29
[2018-09-02] MEDS ORDERED: morphine INJ 10 MG/ML 1ML (SYR OR VIAL) IVP ONE (11:30)
[2018-09-02] MEDS ORDERED: ONDANSETRON 4 MG/2 ML (SDV) Z0FRAN IVP PRN (11:30)
[2018-09-02] MEDS ORDERED: MEPERIDINE (DEMEROL) INJ 50 MG/ML IVP ONE (11:30)
--- NOTE | 2018-09-02 11:34 | Discharge Inst-Simple/Standard ---
Discharge Inst-Standard Discharge Medications New, Converted or Re-Newed RX: RX on Chart Patient Instructions/Follow Up Plan of Care/Instructions/FU: 12-14 DAYS Activity as Tolerated: Yes Discharge Diet: Regular Diet Other Inst to Patient Follow up Appt: Make appointment for 12-14 DAYS Instructions: May shower in 24 hours, no tub bath or soaking. Use incentive spirometer at home as directed. No Smoking Skin/Wound Care: May remove bandages IN 24 HOURS. You have glue over incisions it will fall off on its own. Symptoms to Report: Appetite Changes, Extremity Discoloration, Numbness/Tingling, Swelling Increased , Bleeding Excessive, Eyesight Changes, Pain Increased, Urine Color Change, Constipation(Persistent), Fever over 101 degree F, Pain/Pressure in chest, Urinating Difficulty, Cough Up/Vomit Blood, Heart Beat Irreg/Pounding, Pain/ Pressure in jaw, Vaginal Bleeding Increase, Cramps in feet or legs, Lightheadedness, Pain/Pressure in shoulder, Diarrhea(Persistent), Memory Changes Suddenly, Questions/Concerns, Weight gain consecutive days, Dizziness/ Fainting, Nausea/Vomiting, Shortness of Breath, Weight gain over 2 pounds If questions or concerns contact your physician Or seek help at emergency department. RUFINA LOPEZ DO September 02, 2018 11:34
--- NOTE | 2018-09-02 22:12 | OPERATIVE REPORT ---
DATE OF SERVICE: 09/02/2018 PREOPERATIVE DIAGNOSIS: Lipoma, right chest, left upper quadrant, right thigh. POSTOPERATIVE DIAGNOSIS: Lipoma, right chest, left upper quadrant, right thigh. PROCEDURE: Excision of lipomas of right chest, left upper quadrant and right thigh. SURGEON: Rufina Moreno DO. ANESTHESIA: General. ESTIMATED BLOOD LOSS: Minimal. COMPLICATIONS: None. INDICATIONS: The patient is a 47-year-old male who has lipoma that is causing him some discomfort. He understands risks and benefits of procedures and wished to proceed with procedures. Consent was signed and on the chart. The patient did not wish to do this in the office. DESCRIPTION OF PROCEDURE: The patient was taken to the operating suite, was prepped and draped in sterile fashion. Timeout was performed. Local anesthetic was infiltrated and a 15 blade scalpel was used to make a skin incision over the palpable mass in the right chest. Hemostat was used to dissect down to the subcutaneous tissue and lipoma was encountered and dissected around and was able to be removed in its entirety. Lipoma was in the subcutaneous tissue layer. The wound was then irrigated and suctioned and the skin was then closed using 3-0 Vicryl in a subcuticular fashion and Skin Affix was placed over the incision after it was washed and dried. Left upper quadrant palpable mass was located. A 15 blade scalpel was used to make a skin incision after local anesthetic was infiltrated into the area. Hemostat was used to dissect around it and the lipoma was able to be expressed out of the incision and it was in the subcutaneous tissue plane. This wound was irrigated with copious amounts of irrigation and the skin was then closed using 3-0 Vicryl in a subcuticular fashion. The area was then washed and dried and Skin Affix was placed over the incision. The right thigh then had local anesthetic infiltrated around the lesion. A 15 blade scalpel was used to make a skin incision and the hemostat was used to dissect down through the subcutaneous tissues until the lipoma was encountered and was able to be expressed through the incision and removed in its entirety. Wound was then irrigated. Skin was then closed using 2-0 Prolene in simple interrupted fashion. The patient tolerated the procedure well without any complications. Please see pathology for dimensions of lipomas. He was taken to recovery room in stable condition. Job ID: [id number] DocumentID: [id number] Dictated Date: 09/02/2018 11:39:09 Fisheries Technical Officer Date: 09/02/2018 22:11:08 Dictated By: RUFINA MORENO DO
== END 2018-09-02 13:15 | disposition home or self-care (01) ==
LOC: SDC 08:42
PROVIDERS: ATTEND Surgery
DX: D17.1 Benign lipomatous neoplasm of skin and subcutaneous tissue of trunk (principal); D17.23 Benign lipomatous neoplasm of skin and subcutaneous tissue of right leg; I10 Essential (primary) hypertension; G47.33 Obstructive sleep apnea (adult) (pediatric); Z87.891 Personal history of nicotine dependence
CPT/HCPCS: 87081; 94664

== ENCOUNTER → 2018-12-09 | Outpatient (CLI) | payer BC ==
--- NOTE | 2018-12-09 16:14 | Diagnostic Imaging Report ---
PROCEDURE: CT chest without contrast. TECHNIQUE: Multiple contiguous axial images were obtained through the chest without the use of intravenous contrast. Auto Exposure Controls were utilized during the CT exam to meet ALARA standards for radiation dose reduction. INDICATION: Followup pulmonary nodule. COMPARISON: CT chest from 04/06/2018. FINDINGS: Lungs and airway: No endoluminal nodule within the trachea. No pulmonary mass or consolidation. The 6 mm nodule within the right middle lobe is stable (image 27, series 2). No new pulmonary nodule. Pleura: No pleural effusion or pneumothorax. Heart and mediastinum: Visualized thyroid is normal. No supraclavicular or axillary lymphadenopathy. No mediastinal, hilar or juxtaphrenic lymphadenopathy. Heart is normal in size without pericardial effusion. Normal caliber thoracic aorta. Upper abdomen: Cholecystectomy. No acute abnormality. Musculoskeletal: Normal regional skeleton. IMPRESSION: 1. Right middle lobe 6 mm pulmonary nodule is stable and can be considered benign in etiology given stability and small size. 2. No abnormality that requires additional dedicated followup imaging. Dictated by: Dictated on workstation # [id number]
== END ==
LOC: RAD 15:44
PROVIDERS: ATTEND Nurse Practitioner Family
DX: R91.1 Solitary pulmonary nodule (principal)
CPT/HCPCS: 71250

== ENCOUNTER → 2019-01-03 | Outpatient (CLI) | payer BC ==
--- NOTE | 2019-01-03 12:49 | Diagnostic Imaging Report ---
INDICATION: Pain status post injury. COMPARISON: None. FINDINGS: Three views of the right ribs were obtained. There is no fracture, dislocation, or other acute bony abnormality identified. Visualized portions of the right lung are clear. The surrounding soft tissues appear unremarkable. No radiopaque foreign bodies are seen. IMPRESSION: No healing or displaced right-sided rib fractures. Dictated by: Dictated on workstation # [id number]
== END ==
LOC: RAD 10:04
PROVIDERS: ATTEND Nurse Practitioner Family
DX: R07.81 Pleurodynia (principal); Z98.890 Other specified postprocedural states
CPT/HCPCS: 71100

== ENCOUNTER → 2019-05-11 | Outpatient (CLI) | payer BC ==
[~2019-05-11] MED LIST changes: -TRAM50TA2 PO; +TRM50T PO
--- NOTE | 2019-05-11 08:59 | Diagnostic Imaging Report ---
PROCEDURE: CT abdomen and pelvis without contrast. TECHNIQUE: Multiple contiguous axial images were obtained through the abdomen and pelvis without the use of intravenous contrast. Auto Exposure Controls were utilized during the CT exam to meet ALARA standards for radiation dose reduction. INDICATION: Left flank pain. Correlation is made with prior CT from 03/13/2013. FINDINGS: The lung bases are clear. The liver is unremarkable. No discrete liver mass is identified. Gallbladder is surgically absent. No biliary ductal dilatation is identified. The pancreas and spleen are unremarkable. No adrenal mass is detected. No renal calculi are identified. No ureteral calculi or hydronephrosis is detected. The bladder is decompressed but no calculi are seen. Aorta is non-aneurysmal. No central retroperitoneal or mesenteric lymphadenopathy is seen. The small and large bowel loops are normal caliber. There is no obstruction. Prostate is normal in size. No free fluid or fluid collection is identified. Postoperative changes to the anterior abdominal wall are noted likely from hernia repair. No inflammatory changes are seen. There is no pelvic lymphadenopathy. IMPRESSION: 1. Essentially unremarkable noncontrast CT of the abdomen and pelvis. No urinary tract calculi or obstruction is identified. No acute feature is seen. Dictated by: Dictated on workstation # [id number]
--- NOTE | 2019-05-11 10:07 | Diagnostic Imaging Report ---
INDICATION: Left flank pain. Time of exam 9:09 a.m. FINDINGS: Surgical clips in the gallbladder fossa are noted. No definite radiopaque urinary tract calculi are seen. Postsurgical changes of the lower abdominal wall is noted. There is a calcific density in the right pelvis, likely a phlebolith. The bowel gas pattern is unremarkable. IMPRESSION: No acute abnormality is detected. Dictated by: Dictated on workstation # [id number]
== END ==
LOC: RAD 08:27
PROVIDERS: ATTEND Urology
DX: R10.9 Unspecified abdominal pain (principal); Z90.49 Acquired absence of other specified parts of digestive tract; Z98.890 Other specified postprocedural states; Z87.442 Personal history of urinary calculi
CPT/HCPCS: 74018; 74176

== ENCOUNTER → 2019-12-11 | Outpatient (CLI) | payer BC ==
--- NOTE | 2019-12-11 17:58 | Diagnostic Imaging Report ---
PROCEDURE: CT chest without contrast. TECHNIQUE: Multiple contiguous axial images were obtained through the chest without the use of intravenous contrast. Auto Exposure Controls were utilized during the CT exam to meet ALARA standards for radiation dose reduction. INDICATION: Dyspnea on exertion in patient with known pulmonary nodule. COMPARISON DATE: 12/09/2018. FINDINGS: 0.6 cm nodule in the right middle lobe is again identified. This has remained stable suggesting a benign etiology. There is no evidence of new lung mass. There is calcified granuloma present within the basilar aspect of the right upper lobe. Groundglass densities are seen in the subpleural aspect of both lungs which may represent mild edema or pneumonitis. There is no consolidation or dominant pulmonary mass identified. Noncontrasted images of the mediastinum are unremarkable. There is no significant pleural or pericardial fluid. IMPRESSION: Stable nodules in the right lung likely represent residual from previous granulomatous exposure. There may be slight atelectasis, edema and/or pneumonitis in the subpleural aspect of lungs bilaterally without other evidence of acute abnormality or adverse change. Dictated by: Dictated on workstation # [id number]
== END ==
LOC: RAD 15:52
PROVIDERS: ATTEND Nurse Practitioner Family
DX: R91.8 Other nonspecific abnormal finding of lung field (principal); R06.00 Dyspnea, unspecified
CPT/HCPCS: 71250

== ENCOUNTER → 2020-07-11 | Outpatient (CLI) | payer BC ==
[~2020-07-11] VITALS: Ht 177.8 cm; Wt 104.5 kg
[~2020-07-11] MED LIST changes: +GADOBUTROL 7.5 MMOL/7.5 ML (GADAVIST) VIAL IV ONE; +IOHEXOL 240 MGI/ML 50 ML (OMNIPAQUE) VIAL IV ONE
--- NOTE | 2020-07-11 16:38 | Diagnostic Imaging Report ---
PROCEDURE: MRI left joint upper extremity with contrast. TECHNIQUE: Multiplanar, multisequence contrast-enhanced MRI of the left upper extremity was accomplished. INDICATION: Left shoulder pain, multiple left shoulder surgeries COMPARISON: None FINDINGS: No acute fracture or dislocation is seen in the left shoulder. Subcortical cystlike changes are seen at the anterior posterior femoral head, likely degenerative. The joint is well distended with contrast. There appear to be postsurgical changes from prior rotator cuff repair. There is low-grade partial-thickness tearing at the articular surface of the supraspinatus insertion along the posterior fibers. No other high-grade partial-thickness or full-thickness rotator cuff tears are seen. The long head of the biceps tendon demonstrates a longitudinal split tear proximally, with a complete tear from the anchor which is retracted toward the dome of the humeral head. This could also represent prior tenotomy. There is fraying and irregularity of the superior glenoid labrum with a complex tear at the posterior glenoid labrum (image 12 series 3). No para labral cyst is seen. The acromion has a curved undersurface and appears to be subject to prior acromioplasty. The coracoclavicular and coracoacromial ligaments appear intact. No muscular atrophy is seen. No soft tissue masses or fluid collections are seen. IMPRESSION: 1. Postsurgical changes at the left rotator cuff with low-grade partial-thickness tearing at the supraspinatus insertion. 2. Tearing of the posterior and superior glenoid labrum. 3. Complete, retracted tear versus tenotomy of the long head of the biceps tendon. Dictated by: Dictated on workstation # [id number]
--- NOTE | 2020-07-11 17:56 | Diagnostic Imaging Report ---
INDICATION: Left shoulder instability. PROCEDURE: Patient was brought to the procedure room and placed on table in supine position. Skin of the left shoulder was prepped and draped in the usual sterile fashion. Small amount of 1% lidocaine was utilized for local anesthesia. A 22-gauge needle was advanced into the left shoulder at the rotator interval. A 15 mm solution of iodinated contrast, normal saline and gadolinium was injected under fluoroscopic observation. A total of 24 seconds of fluoroscopic time was utilized. Needle was removed and hemostasis was obtained using manual compression. Patient tolerated the procedure well and was sent to MRI in satisfactory condition. IMPRESSION: Successful left shoulder injection of gadolinium contrast solution, using fluoroscopy. Dictated by: Dictated on workstation # [id number]
== END ==
LOC: RAD 12:44
PROVIDERS: ATTEND Orthopaedic Surgery
DX: S43.432A Superior glenoid labrum lesion of left shoulder, initial encounter (principal); X58.XXXA Exposure to other specified factors, initial encounter
CPT/HCPCS: 23350; 73040; 73222

== ENCOUNTER → 2021-01-29 | Outpatient (CLI) | payer BC ==
[~2021-01-29] MED LIST changes: -GADOBUTROL 7.5 MMOL/7.5 ML (GADAVIST) VIAL IV ONE; -IOHEXOL 240 MGI/ML 50 ML (OMNIPAQUE) VIAL IV ONE
[2021-01-29 08:24] LABS: HEMATOCRIT 49 % (40-54); HEMOGLOBIN 16.2 g/dL (13.3-17.7); MEAN CORPUSCULAR HEMOGLOBIN 29 pg (25-34); MEAN CORPUSCULAR HGB CONC 33 g/dL (32-36); MEAN CORPUSCULAR VOLUME 88 fL (80-99); MEAN PLATELET VOLUME 10.7 fL (9.0-12.2); PLATELET COUNT 278 10^3/uL (130-400); WHITE BLOOD COUNT 5.4 10^3/uL (4.3-11.0)
[2021-01-29 08:51] LABS: ALANINE AMINOTRANSFERASE 45 U/L (0-55); ALBUMIN 4.1 GM/DL (3.2-4.5); ALKALINE PHOSPHATASE 81 U/L (40-136); BILIRUBIN,TOTAL 0.6 MG/DL (0.1-1.0); BUN/CREATININE RATIO 13; CALCIUM 9.4 MG/DL (8.5-10.1); CARBON DIOXIDE 24 MMOL/L (21-32); CHLORIDE 108 MMOL/L (98-107); CHOLESTEROL 203 MG/DL (< 200); CREATINE KINASE 125 U/L (30-200); CREATININE SERUM 1.09 MG/DL (0.60-1.30); GFR ESTIMATED 72; GLUCOSE 106 MG/DL (70-105); HDL CHOLESTEROL 44 MG/DL (40-60); POTASSIUM 4.3 MMOL/L (3.6-5.0); SODIUM 140 MMOL/L (135-145); TOTAL PROTEIN 6.6 GM/DL (6.4-8.2); TRIGLYCERIDES 94 MG/DL (<150); VLDL CHOLESTEROL 19 MG/DL (5-40)
== END ==
LOC: RAD 08:02
PROVIDERS: ATTEND Nurse Practitioner Family
DX: R07.9 Chest pain, unspecified (principal)
CPT/HCPCS: 36415; 80053; 80061; 82550; 84484; 85027; 93005

== ENCOUNTER → 2021-02-21 | Outpatient (CLI) | payer BC ==
--- NOTE | 2021-02-21 12:52 | Diagnostic Imaging Report ---
INDICATION: Coughing up blood. TIME OF EXAM: 12:060 PM Comparison is made with prior chest from 03/27/2018. FINDINGS: The heart size is normal. The pulmonary vascularity is unremarkable. The lungs are clear. No infiltrate, effusion or pneumothorax is detected. IMPRESSION: No acute cardiopulmonary process is detected. Dictated by: Dictated on workstation # [id number]
== END ==
LOC: RAD 11:47
PROVIDERS: ATTEND Surgery
DX: R04.2 Hemoptysis (principal)
CPT/HCPCS: 71046

== ENCOUNTER 2021-03-07 05:30 | Outpatient (RCR) | payer BC ==
[~2021-03-07] VITALS: Ht 180.3 cm; Wt 104.3 kg
== END 2021-03-07 13:11 | disposition home or self-care (01) ==
LOC: PREOP 05:30
PROVIDERS: ATTEND Surgery
DX: Z01.812 Encounter for preprocedural laboratory examination (principal); Z12.11 Encounter for screening for malignant neoplasm of colon; K21.9 Gastro-esophageal reflux disease without esophagitis; Z20.822 Contact with and (suspected) exposure to COVID-19
CPT/HCPCS: 87635

== ENCOUNTER 2021-03-11 12:17 | Day surgery (SDC) | payer BC ==
[~2021-03-11] VITALS: Ht 180.3 cm; Wt 104.3 kg
[2021-03-11] VITALS (7 sets, daily range): BP systolic 113–140; BP diastolic 73–98
[2021-03-11] MEDS ORDERED: LACTATED RINGERS 1,000 ML IV STA (12:53)
--- NOTE | 2021-03-11 12:56 | Progress Note-Pre Operative ---
Pre-Operative Progress Note H&P Reviewed The H&P was reviewed, patient examined and no changes noted. Date Seen by Provider: Mar 11, 2021 Time Seen by Provider: 12:51 Date H&P Reviewed: Mar 11, 2021 Time H&P Reviewed: 12:51 Pre-Operative Diagnosis: gerd, screening RUFINA LOPEZ DO Mar 11, 2021 12:56
[2021-03-11] MEDS ORDERED: HURRICAINE EXT TUBE (BENZOCAINE) XX PRN (13:00)
[2021-03-11] MEDS ORDERED: LACTATED RINGERS 1,000 ML IV ONE (13:02)
[2021-03-11] MEDS ORDERED: MIDAZOLAM 2 MG/2 ML (VERSED) VIAL ONE (14:03)
[2021-03-11] MEDS ORDERED: proPOfol 200 MG/20 ML (DIPRIVAN) VIAL IV ONE (14:03)
--- NOTE | 2021-03-11 14:51 | Progress Note-Post Operative ---
Post-Operative Progess Note Surgeon (s)/Appointment Coordinator (s) Surgeon RUFINA LOPEZ DO Appointment Coordinator: N/A Pre-Operative Diagnosis GERD, Screening colonoscopy Post-Operative Diagnosis Normal colon, normal EGD Procedure & Operative Findings Date of Procedure 03/11/21 Procedure Performed/Findings EGD with antral and GE bx, colonoscopy Anesthesia Type Per SENIOR DATA ANALYST Estimated Blood Loss Estimated blood loss (mL): None Specimens/Packing Specimens Removed Antral bx, GE junction bx RUFINA LOPEZ DO Mar 11, 2021 14:51
--- NOTE | 2021-03-12 04:06 | OPERATIVE REPORT ---
DATE OF SERVICE: 03/11/2021 PREOPERATIVE DIAGNOSES: Gastroesophageal reflux disease, screening colonoscopy. POSTOPERATIVE DIAGNOSES: Normal colon, normal esophagogastroduodenoscopy. PROCEDURE: EGD with biopsies and colonoscopy. SURGEON: Rufina Moreno DO ANESTHESIA: Per POLITICAL SCIENCE RESEARCH ASSISTANT. ESTIMATED BLOOD LOSS: None. COMPLICATIONS: None. INDICATIONS: The patient is a 50-year-old male needing a screening colonoscopy. He also has GERD symptoms. He understands risks and benefits of procedure and wished to proceed with procedure. Consent was signed in the chart. DESCRIPTION OF PROCEDURE: The patient was taken to the endoscopy suite, placed in left lateral recumbent position. Timeout was performed. Scope was inserted in mouth, down the esophagus, stomach and into the duodenum without difficulty. There were no polyps, masses or ulcerations within the duodenum. Scope was slowly retracted back into the stomach where it was further insufflated. No polyps, masses or ulcerations. . Scope was retroflexed noting no other pathology. Scope was returned to its normal position. Biopsy of the antrum was obtained. Scope was slowly retracted back to the distal esophagus, which had normal appearance. Biopsy of the GE junction was obtained. Scope was then slowly retracted back until completely removed. The patient tolerated the procedure well without any complications. Colonoscopy then performed. Digital rectal exam was performed. There were no palpable polyps, masses or ulcerations. Scope was inserted into the rectum, advanced all the way to cecum with minimal difficulty. Prep was adequate. Scope was then slowly retracted back. There were no polyps, masses or ulcerations in the cecum, ascending, transverse, descending and sigmoid colon. Once in the rectum, scope was retroflexed noting no other pathology. Scope was returned to its normal position, slowly withdrawn until completely removed. The patient tolerated procedure well without any complications, taken to recovery room in stable condition. RECOMMENDATIONS: The patient will need repeat colonoscopy in 10 years unless family history of colon cancer, which would then be 5 years. Any issues before that be seen at that time. The patient has GERD symptoms. No significant abnormalities visualized in the upper GI tract. We will have him follow up in couple of weeks to discuss pathology results and see how his symptoms are doing at that time. Further recommendations pending biopsy results. Job ID: [id number] DocumentID: [id number] Dictated Date: 03/11/2021 19:33:19 Yard Person Date: 03/12/2021 04:05:54 Dictated By: RUFINA MORENO DO
--- NOTE | 2021-03-12 13:28 | Anesthesia-General Post-Op ---
MAC Patient Condition Mental Status/LOC: Same as Preop Cardiovascular: Satisfactory Nausea/Vomiting: Absent Respiratory: Satisfactory Pain: Controlled Complications: Absent Post Op Complications Complications None Follow Up Care/Instructions Patient Instructions None needed. Anesthesiology Discharge Order Discharge Order Patient is doing well, no complaints, stable vital signs, no apparent adverse anesthesia problems. No complications reported per nursing. ALVARADO TOLLIVER CRNA Mar 12, 2021 13:28
== END 2021-03-11 15:55 | disposition home or self-care (01) ==
LOC: ENDO 12:17
PROVIDERS: ATTEND Surgery
DX: Z12.11 Encounter for screening for malignant neoplasm of colon (principal); K21.9 Gastro-esophageal reflux disease without esophagitis; I12.9 Hypertensive chronic kidney disease with stage 1 through stage 4 chronic kidney disease, or unspecified chronic kidney disease; N18.9 Chronic kidney disease, unspecified; G47.33 Obstructive sleep apnea (adult) (pediatric)
CPT/HCPCS: 88305

== ENCOUNTER → 2021-05-30 | Outpatient (CLI) | payer BC ==
--- NOTE | 2021-05-30 12:12 | Diagnostic Imaging Report ---
INDICATION: Right hand injury and pain. TIME OF EXAM: 11:06 a.m. TECHNIQUE: Three views of the right hand were obtained. FINDINGS: Distal radius and ulna are intact. Carpus is intact. Metacarpals are unremarkable. Phalanges are intact. No fractures are seen. IMPRESSION: No acute bony abnormality is detected. Dictated by: Dictated on workstation # [id number]
== END ==
LOC: RAD 10:43
PROVIDERS: ATTEND Nurse Practitioner Family
DX: S69.91XA Unspecified injury of right wrist, hand and finger(s), initial encounter (principal); X58.XXXA Exposure to other specified factors, initial encounter
CPT/HCPCS: 73130